=== PATIENT | male | born 1940 | race Caucasian/White ===

== ENCOUNTER 2017-03-19 21:29 | Inpatient (IN) | payer MEDICARE, OTHER ==
[2017-03-19 22:32] LABS: #Basophils 0.1 thou/uL (0.0-0.2); #Eosinphils 0.1 thou/uL (0.0-0.7); #Lymphocytes 1.2 thou/uL (1.20-3.40); #Monocytes 0.4 thou/uL (0.11-0.59); #Neutrophils 7.2 thou/uL (1.40-6.50); %Basophils 0.9 % (0.0-1.0); %Eosinophils 0.6 % (0.0-10.0); %Lymphocytes 13.7 % (21.0-51.0); %Monocytes 4.6 % (0.0-10.0); %Neutrophils 80.2 % (42.0-75.0); Hemoglobin 13.3 g/dL (14.0-18.0); Mean Corpuscular HGB CONC 32.4 g/dL (32.0-36.0); Mean Corpuscular Hemoglobin 32.4 pg (27.0-31.0); Mean Corpuscular Volume 99.8 fl (80.0-94.0); Mean Platelet Volume 6.8 fL (7.4-10.4); Platelet Count 251 thou/uL (130-400); RBC Distribution Width 17.1 % (11.5-14.5); Red Blood Cell (RBC) Count 4.12 mill/uL (4.70-6.10)
[2017-03-19] MEDS ORDERED: Propofol 1,000 MG/100 ML VIAL IV ONE (22:34)
[2017-03-19] MEDS ORDERED: Fentanyl 100 MCG/2 ML VIAL ONE (22:34)
[2017-03-19 22:39] LABS: INR-International Normal Ratio 1.2; PTT 36.6 SEC (22.9-36.1); Prothrombin Time 15.5 SEC (12.0-14.7)
[2017-03-19 22:40] LABS: D-Dimer Test 3.07 *mcg/mL (0.27-0.43)
[2017-03-19 22:54] LABS: ALT (SGPT) Less than 7 U/L (8-55); AST (SGOT) 15 U/L (5-34); Albumin 3.7 g/dL (3.4-4.8); Alkaline Phosphatase 56 U/L (40-150); Anion Gap 16 mmol/L (10-20); BUN (Urea Nitrogen) 38 mg/dL (8.4-25.7); Bilirubin, Total 0.7 mg/dL (0.2-1.2); CK (CPK) 19 U/L (30-200); Calc. Creatinine Clearance 0 mL/min (70-130); Calcium 10.5 mg/dL (7.8-10.44); Carbon Dioxide 24 mmol/L (23-31); Chloride 102 mmol/L (98-107); Estimated GFR-MDRD 39; Globulin 3.9 g/dL (2.4-3.5); Glucose 213 mg/dL (83-110); Lipase 42 U/L (8-78); Magnesium 2.1 mg/dL (1.6-2.6); Potassium 5.5 mmol/L (3.5-5.1); Protein, Total 7.6 g/dL (5.8-8.1); Sodium 136 mmol/L (136-145)
[2017-03-19 22:57] LABS: CKMB 0.5 ng/mL (0-6.6); Troponin I 0.036 ng/mL (< 0.028)
--- NOTE | 2017-03-19 23:01 | RAD ---
PORTABLE SUPINE CHEST ONE VIEW: 03/19/17 HISTORY: 76-year-old male with shortness of breath. COMPARISON: 03/31/16. NG tube and endotracheal tubes have been placed and are in satisfactory location. Atherosclerotic peña nges of the aorta. There is rotation to the left. No confluent pneumonia or overt edema or pleural ef fusion. IMPRESSION: NG tube and endotracheal tubes placed in satisfactory location. No evidence of pneumonia or other sig nificant acute intrathoracic disease. POS: [facility]
[2017-03-19] MEDS ORDERED: metroNIDAZOLE 500 MG in Premix Bag 1 BAG IVPB SCH (23:15)
[2017-03-19] MEDS ORDERED: Oseltamivir 75 MG CAP PER TUBE SCH (23:15)
[2017-03-19] MEDS ORDERED: CEFAZOLIN/Water 2 GM/20 ML SYRINGE ONE (23:24)
[2017-03-19 23:27] LABS: Actual Bicarbonate (HCO3a) 18.6 mEq/L (22-26); Base Excess (BEa) -5.4 mEq/L (0 (+/-) 2.5); CO2 Tension 30.8 mmHg (35.0-45.0); Hematocrit-ABG 33.2 % (42.0-52.0); Hemoglobin (Hb) 10.1 g/dL (14.0-18.0); O2 Tension (PaO2) 154.1 mmHg (80.0-100.0)
[2017-03-19 23:28] LABS: Analyzer IN Cardio ER; Calcium, Ionized 1.2 mmol/L (1.12-1.30); Puncture Site RRA
[2017-03-19] MEDS ORDERED: Cefepime 2 GM, Syringe 2.5 ML in Sterile Water 10 ML SLOW IVP SCH (23:45)
[2017-03-20] MEDS ORDERED: Ondansetron HCl/PF 4 MG/2 ML Vial ONE (01:14)
[2017-03-20 01:31] LABS: Troponin I 0.042 ng/mL (< 0.028)
[2017-03-20] MEDS ORDERED: Dextrose 50% Abboject 50 ML SYRINGE SLOW IVP PRN (02:10)
[2017-03-20] MEDS ORDERED: Dextrose 5% in Water 1,000 ML IV PRN (02:10)
[2017-03-20] MEDS ORDERED: Ventilator Sedation Protocol 1 EACH FS SCH (02:10)
[2017-03-20] MEDS ORDERED: CCU Electrolyte Replacement 1 EACH FS SCH (02:10)
[2017-03-20] MEDS ORDERED: Ondansetron HCl/PF 4 MG/2 ML Vial IVP PRN (02:10)
[2017-03-20] MEDS ORDERED: Enoxaparin Sodium 40 MG/0.4 ML SYRINGE SC SCH (02:15)
[2017-03-20] MEDS ORDERED: Sodium Chloride 0.45% 1,000 ML IV SCH (02:15)
[2017-03-20] MEDS ORDERED: DISCONTINUE PREVIOUS NARCOTIC PAIN MEDICATIONS AND BENZODIAZEPINES FS SCH (02:17)
[2017-03-20] MEDS ORDERED: Lorazepam 2 MG/ML VIAL SLOW IVP PRN (02:17)
[2017-03-20] MEDS ORDERED: Fentanyl CADD 250 ML IVPB SCH (02:17)
[2017-03-20] MEDS ORDERED: Propofol 1,000 MG/100 ML VIAL IV PRN (02:17)
[2017-03-20] MEDS ORDERED: Fentanyl BOLUS 250 ML IVPB PRN (02:17)
[2017-03-20] MEDS ORDERED: Magnesium 2 GM/NS 0.9% 100 ML 2 GM in Premix Bag 1 BAG IVPB PRN (02:20)
[2017-03-20] MEDS ORDERED: Potassium Chloride 40 MEQ in Premix Bag 1 BAG IVPB PRN (02:20)
[2017-03-20] MEDS ORDERED: Potassium Phosphate 15 MMOL in Sodium Chloride 0.9% 250 ML 250 ML IV PRN (02:20)
[2017-03-20] MEDS ORDERED: CCU ELECTROLYTE REPLACEMENT PROTOCOL FS PRN (02:20)
[2017-03-20] MEDS ORDERED: Potassium Chloride 40 MEQ in Sodium Chloride 0.9% 250 ML 250 ML IVPB PRN (02:20)
[2017-03-20] MEDS ORDERED: Potassium Phosphate 12 MMOL in Sodium Chloride 0.9% 250 ML 250 ML IV PRN (02:20)
[2017-03-20] MEDS ORDERED: Potassium Chloride 20 MEQ TAB PO PRN (02:20)
[2017-03-20] MEDS ORDERED: Potassium Phosphate 9 MMOL in Sodium Chloride 0.9% 100 ML IVPB PRN (02:20)
[2017-03-20] MEDS ORDERED: Magnesium Oxide 400 MG TAB PO PRN ×2 (02:20)
[2017-03-20 02:43] LABS: Lactic Acid 1.7 mmol/L (0.5-2.2)
[2017-03-20] MEDS ORDERED: HumaLOG 300 UNITS/3 ML VIAL SC PRN (02:49)
[2017-03-20 02:52] LABS: Actual Bicarbonate (HCO3a) 21.1 mEq/L (22-26); Base Excess (BEa) -3.5 mEq/L (0 (+/-) 2.5); CO2 Tension 36.4 mmHg (35.0-45.0); Calcium, Ionized 1.3 mmol/L (1.12-1.30); Hematocrit-ABG 34.7 % (42.0-52.0); Hemoglobin (Hb) 10.2 g/dL (14.0-18.0); O2 Tension (PaO2) 72.9 mmHg (80.0-100.0); pH, Arterial 7.38 (7.35-7.45)
[2017-03-20 02:54] LABS: Puncture Site RBRACH
[2017-03-20] MEDS: Sodium Chloride 0.9% 1,000 ML IV SCH ×3 (03:18→14:07)
[2017-03-20 05:18] LABS: #Lymphocytes 0.9 thou/uL (1.20-3.40); #Monocytes 0.5 thou/uL (0.11-0.59); #Neutrophils 5.6 thou/uL (1.40-6.50); %Basophils 0.2 % (0.0-1.0); %Eosinophils 0.5 % (0.0-10.0); %Lymphocytes 12.8 % (21.0-51.0); %Neutrophils 79.5 % (42.0-75.0); Hemoglobin 11.3 g/dL (14.0-18.0); Mean Corpuscular HGB CONC 32.6 g/dL (32.0-36.0); Mean Corpuscular Hemoglobin 32.4 pg (27.0-31.0); Mean Corpuscular Volume 99.4 fl (80.0-94.0); Mean Platelet Volume 7.3 fL (7.4-10.4); Platelet Count 161 thou/uL (130-400)
[2017-03-20 05:51] LABS: ALT (SGPT) 7 U/L (8-55); AST (SGOT) 18 U/L (5-34); Albumin 2.8 g/dL (3.4-4.8); Alkaline Phosphatase 41 U/L (40-150); Anion Gap 11 mmol/L (10-20); BUN (Urea Nitrogen) 34 mg/dL (8.4-25.7); Bilirubin, Total 0.4 mg/dL (0.2-1.2); Calc. Creatinine Clearance 44 mL/min (70-130); Calcium 8.9 mg/dL (7.8-10.44); Carbon Dioxide 20 mmol/L (23-31); Chloride 107 mmol/L (98-107); Estimated GFR-MDRD 50; Globulin 2.9 g/dL (2.4-3.5); Glucose 157 mg/dL (83-110); Potassium 4.2 mmol/L (3.5-5.1); Protein, Total 5.7 g/dL (5.8-8.1); Sodium 134 mmol/L (136-145)
[2017-03-20] MEDS: Clindamycin/D5W 900 MG in Premix Bag 1 BAG IVPB SCH ×3 (05:58→21:09)
--- NOTE | 2017-03-20 07:26 | HP ---
DATE OF ADMISSION: 03/20/2017 TIME OF SERVICE: 00:10 CHIEF COMPLAINT: Shortness of breath. HISTORY OF PRESENT ILLNESS: Disclaimer: Entire history is taken from the chart and from the ER doctor as the patient is currently sedated, intubated, and has no family with him. Mr. Montelongo is a 76-year-old gentleman from [facility]. He was acting more confused than his normal self today and subsequently EMS was called to see him as he was complaining of shortness of breath. On EMS arrival, was saturating 89-90% on room air, was placed on oxygen and the sats came up to 96%. Again, he was confused from his baseline and has been treated for recent UTI with Macrobid and the patient was brought to the emergency department for evaluation. Allegedly temperature there in the skilled nursing was 100.0 with respiratory rate of 24 on transport. In the ER, they were in the process of placing an IV, the patient was short of breath and vomited and aspirated. He was subsequently urgently intubated for respiratory airway protection. He is now paralyzed, sedated and intubated. We were asked to admit the patient. Further workup did reveal normal white count, influenza A positive, creatinine just above baseline of 1.69, temperature was 101.1, pulse 103, lactic acid was 5.6. PAST MEDICAL HISTORY: 1. Anemia: Patient apparently told him that his bone marrow does not make enough cells. 2. Hypertension. 3. Hypothyroidism. 4. Ankylosing spondylitis. 5. Acute kidney injury. 6. Uropathy. 7. Diabetes mellitus, non-insulin dependent. 8. Gastroesophageal reflux disease. 9. Osteoarthritis. 10. Chronic dysphagia. PAST SURGICAL HISTORY: Include, 1. Bilateral hip x2. 2. Right knee surgery. 3. Shoulder surgery. HOME MEDICATIONS: 1. Levothyroxine 88 mcg daily. 2. Coreg 25 mg p.o. b.i.d. 3. Gabapentin 600 mg p.o. at bedtime. 4. Sulfasalazine 1 gram b.i.d. 5. Docusate 100 mg daily. 6. Iron sulfate 325 mg daily. 7. Aspirin 81 mg daily. 8. Finasteride 5 mg daily. 9. Januvia 50 mg daily. 10. Melatonin 3 mg p.o. at bedtime. 11. Amlodipine 10 mg daily. 12. Prilosec 20 mg daily. ALLERGIES: To AMOXICILLIN and CODEINE, reactions unknown. FAMILY HISTORY: Unknown. SOCIAL HISTORY: Reportedly negative x3. He is a resident of [place]. His lives here locally. I do not have a phone number. REVIEW OF SYSTEMS: Not obtainable due to the patient's depressed mental status. PHYSICAL EXAMINATION: VITAL SIGNS: Temperature here on arrival at 21:50 was 101.1 with a pulse of 103 , blood pressure 158/77, respiratory rate 20, satting 99% on 2 liters. At 23:18 , just prior to me seeing him, pulse is 101, blood pressure 117/63, respiratory rate 12, satting 99% on the ventilator. GENERAL: He is sedated, intubated. He is paralyzed. He is on the ventilator in no apparent distress. HEENT: Normocephalic and atraumatic. Pupils are 2-3 mm and minimally reactive. Mucous membranes are moist. NECK: Stiff. Ankylosing spondylitis does affect his neck severely. He has very limited motion chronically. CHEST: Clear anteriorly. I hear some faint crackles present in the bilateral bases. He has good air movement. There are no wheezes. CARDIOVASCULAR: He is tachycardic but regular. He has a 2/6 systolic ejection murmur best heard over the right upper sternal border. He has a faint diastolic holosystolic murmur best heard at the apex. ABDOMEN: Soft with good bowel sounds. There is no rigidity. EXTREMITIES: Showed trace pedal edema. SKIN: Warm, moist, and well perfused. There are no rashes or lesions seen. MUSCULOSKELETAL: Normal to inspection. Large joints appear normal. There is no inflammation and no palpable effusion. Cervical spine is extremely stiff and almost fixed. NEUROLOGIC: Not testable due to a paralyzed and intubated status. LABORATORY DATA: CMP showed sodium of 136, potassium 5.5, chloride 102, bicarb 24, BUN 38. Creatinine 1.69, normal is somewhere around 1.3. Glucose of 213. Calcium was 10.5 and liver functions are normal. Albumin slightly low at 3.9. CBC showed a white count of 9.0, normal differential, hemoglobin 13.3, hematocrit of 41.1, platelets 281,000. CK was normal at 19, MB of 0.5, troponin I of 0.636. INR is 1.2 and lactic acid was 5.6. His ABG on the ventilator showed pH of 7.40 , pCO2 of 31, pO2 of 154, oxygen saturation 99% and a bicarbonate of 19. BNP was 548. Lipase normal at 42. Current vent settings, SIMV with a rate of 12, PEEP of 5, tidal volume of 500 and FiO2 of 40%. RADIOGRAPHIC STUDIES: Chest x-ray showed no acute cardiopulmonary changes. There is an NG tube and endotracheal tube in place. ASSESSMENT AND PLAN: 1. Influenza A. 2. Acute hypoxic respiratory failure after aspiration, currently requiring mechanical ventilation. 3. Aspiration event with gastric contents into the trachea, now intubated. 4. Severe sepsis. Increased creatinine, fever, tachycardia, and lactic acid of 5.6. The patient was placed in the critical care unit. We will ask for a Pulmonary or Critical Care consult. We will give him IV fluids at 150 an hour for now, we will cover him broadly with antibiotics with cefepime, levofloxacin , and clindamycin. Clindamycin is to cover his aspiration and the cefepime and Levaquin for respiratory infection in a long-term care unit. The patient will be placed on oseltamivir 75 mg p.o. b.i.d. 5. Hypertension. Home medicines to be started once his OG tube is in place. We will have p.r.n. hydralazine as needed for elevated blood pressure. 6. Hypothyroidism, on levothyroxine. We will hold right now. 7. Ankylosing spondylitis. 8. History of diabetes mellitus type 2, sliding scale insulin will be ordered per ICU protocol. 9. Dysphasia. The patient will need a speech therapy evaluation once he gets off the ventilator. MTDD
[2017-03-20 08:07] LABS: Base Excess (BEa) -2.7 mEq/L (0 (+/-) 2.5); CO2 Tension 32.2 mmHg (35.0-45.0); Calcium, Ionized 1.2 mmol/L (1.12-1.30); Hematocrit-ABG 32.1 % (42.0-52.0); Hemoglobin (Hb) 9.7 g/dL (14.0-18.0); O2 Tension (PaO2) 113.7 mmHg (80.0-100.0); Puncture Site RRA; pH, Arterial 7.43 (7.35-7.45)
[2017-03-20] MEDS ORDERED: Cefepime 2 GM VIAL IVPB SCH (09:00)
[2017-03-20] MEDS: methylPREDNISolone Sod Succ/PF 125 MG/2 ML VIAL IVP SCH (09:34)
[2017-03-20] MEDS: Famotidine/PF 20 mg/2ml Vial SLOW IVP SCH (09:36)
--- NOTE | 2017-03-20 09:52 | RAD ---
AP VIEW CHEST: Date: 03/20/17 HISTORY: Intubation, aspiration, influenza. FINDINGS: Comparison made to previous exam from 03/19/17. AP view of chest demonstrates nasogastric tube in place. Endotracheal tube is in good position. Pulmo nary vascular congestion is seen. No evidence of effusions, pneumonia, or pneumothorax seen. IMPRESSION: Endotracheal and nasogastric tubes in good position. No evidence of acute intrathoracic abnormality s een. POS: [facility]
--- NOTE | 2017-03-20 11:34 | PDOC.PN ---
- Subjective Encounter Start Date: 03/20/17 Encounter Start Time: 11:00 Subjective: on vent, sedated -: tries to wake up on tactile stimuli - Objective Resuscitation Status: Resuscitation Status FULL:Full Resuscitation MAR Reviewed: Yes Vital Signs & Weight: Vital Signs (12 hours) Temp Pulse Resp Pulse Ox 03/20/17 10:00 12 03/20/17 08:00 99.2 F 82 12 99 03/20/17 07:57 79 03/20/17 07:00 99.1 F 03/20/17 06:00 16 03/20/17 04:00 14 03/20/17 03:00 100.1 F H 87 14 100 03/20/17 02:10 90 Weight Admit Weight 156 lb 1.396 oz Weight 156 lb 1.396 oz Most Recent Monitor Data Heart Rate from ECG 84 NIBP 128/49 NIBP BP-Mean 90 Respiration from ECG 17 SpO2 100 I&O: 03/19/17 03/20/17 03/21/17 06:59 06:59 06:59 Intake Total 476 Output Total 1145 415 Balance -669 -415 Result Diagrams: 03/20/17 04:22 03/20/17 04:22 Additional Labs: Accuchecks 03/20/17 03/20/17 10:07 02:29 POC Glucose 94 166 H Phys Exam - Physical Examination HEENT: PERRLA, moist MMs Neck: no JVD, supple Respiratory: no wheezing, no rales Cardiovascular: RRR, no significant murmur Gastrointestinal: soft, non-tender, positive bowel sounds Musculoskeletal: no edema, pulses present Neurological: non-focal, moves all 4 limbs Dx/Plan (1) Acute respiratory failure with hypoxia Code(s): J96.01 - ACUTE RESPIRATORY FAILURE WITH HYPOXIA Status: Acute (2) Aspiration pneumonitis Code(s): J69.0 - PNEUMONITIS DUE TO INHALATION OF FOOD AND VOMIT Status: Acute (3) Sepsis Code(s): A41.9 - SEPSIS, UNSPECIFIED ORGANISM Status: Acute Qualifiers: Sepsis type: sepsis due to unspecified organism Qualified Code(s): A41.9 - Sepsis, unspecified organism (4) Demand ischemia of myocardium Code(s): I24.8 - OTHER FORMS OF ACUTE ISCHEMIC HEART DISEASE Status: Acute (5) YOLETTE (acute kidney injury) Code(s): N17.9 - ACUTE KIDNEY FAILURE, UNSPECIFIED Status: Acute (6) Metabolic acidosis Code(s): E87.2 - ACIDOSIS Status: Acute (7) DM type 2 (diabetes mellitus, type 2) Status: Chronic Qualifiers: Diabetes mellitus complication status: with unspecified complications Diabetes mellitus usp insulin use: without usp use Qualified Code( s): E11.8 - Type 2 diabetes mellitus with unspecified complications (8) HTN (hypertension) Code(s): I10 - ESSENTIAL (PRIMARY) HYPERTENSION Status: Chronic Qualifiers: Hypertension type: essential hypertension Qualified Code(s): I10 - Essential (primary) hypertension (9) Hypothyroidism Code(s): E03.9 - HYPOTHYROIDISM, UNSPECIFIED Status: Chronic Qualifiers: Hypothyroidism type: unspecified Qualified Code(s): E03.9 - Hypothyroidism , unspecified (10) Chronic anemia Code(s): D64.9 - ANEMIA, UNSPECIFIED Status: Chronic - Plan weaning per pulm advice -: is on cefipime, levaq and clindamycin -: may dc tamiflu -: gentle iv hydration -: nebs, stress dose steroids, will f/u * . Review of Systems - Medications/Allergies Allergies/Adverse Reactions: Allergies Allergy/AdvReac Type Severity Reaction Status Date / Time amoxicillin Allergy per doctor Verified 03/20/17 03:40 history codeine AdvReac Intermediate Nausea Verified 03/20/17 03:40 Medications: Current Medications Albuterol/Ipratropium (Duoneb) 3 ml NEB [id number] CINDY Dextrose/Water (Dextrose 50%) 25 gm SLOW IVP PRN PRN PRN Reason: Hypoglycemia Enoxaparin Sodium (Lovenox) 40 mg SC 0900 [facility] Famotidine (Pepcid) 20 mg SLOW IVP Q24HR [facility] Last Admin: 03/20/17 09:36 Dose: 20 mg Glucagon (Glucagon) 1 mg IM PRN PRN PRN Reason: Hypoglycemia Clindamycin Phosphate/Dextrose (900 mg/ Device) 50 mls @ 100 mls/hr IVPB 0600, 1400,2200 [facility] Last Admin: 03/20/17 05:58 Dose: 50 mls Dextrose/Water (D5w) 1,000 mls @ 0 mls/hr IV .Q0M PRN; As Directed PRN Reason: Hypoglycemia Sodium Chloride (Normal Saline 0.9%) 1,000 mls @ 150 mls/hr IV .Q6H40M [facility] Last Admin: 03/20/17 09:47 Dose: Not Given Fentanyl (Fentanyl Cadd) 250 mls @ 0 mls/hr IVPB INF CINDY; Titrate PRN Reason: Protocol Stop: 04/19/17 02:17 Fentanyl Citrate (Fentanyl Bolus) 250 mls @ 0 mls/hr IVPB PRN PRN; As Directed PRN Reason: Breakthrough pain Stop: 04/19/17 02:17 Potassium Chloride 40 meq/ (Sodium Chloride) 270 mls @ 135 mls/hr IVPB ASDIR PRN PRN Reason: FOR SERUM K+ 2.5 - 3.5 Potassium Chloride 40 meq/ (Device) 100 mls @ 50 mls/hr IVPB ASDIR PRN PRN Reason: FOR SERUM K+ 2.5 - 3.5 Magnesium Sulfate 1 gm/ Sodium (Chloride) 102 mls @ 102 mls/hr IV PRN PRN PRN Reason: MAG LEVEL 1.4 - 2.0 Magnesium Sulfate 2 gm/ Device 100 mls @ 100 mls/hr IVPB ASDIR PRN PRN Reason: MAGNESIUM < 1.4 Potassium Phosphate 9 mmol/ (Sodium Chloride) 103 mls @ 25.75 mls/hr IVPB ASDIR PRN PRN Reason: Phosphate 1.0-1.8 Potassium Phosphate 12 mmol/ (Sodium Chloride) 254 mls @ 63.5 mls/hr IV ASDIR PRN PRN Reason: Serum phosphate 0.5-0.9 Potassium Phosphate 15 mmol/ (Sodium Chloride) 255 mls @ 63.75 mls/hr IV ASDIR PRN PRN Reason: Serum Phos < 0.5 Levofloxacin 750 mg/ Device 150 mls @ 100 mls/hr IVPB 0300 [facility] Last Admin: 03/20/17 03:18 Dose: 150 mls Cefepime HCl 2 gm/ Syringe 2.5 (ml/ Sterile Water) 12.5 mls @ 150 mls/hr SLOW IVP 0100,1300 C[facility] Insulin Human Lispro (Humalog) 0 units SC .MILD SLIDING SCALE PRN; Protocol PRN Reason: MILD SLIDING SCALE Lorazepam (Ativan) 2 mg SLOW IVP Q2H PRN PRN Reason: Anxiety to achieve Bianchi 2-3 Stop: 04/19/17 02:17 Magnesium Oxide (Magnesium Oxide) 400 mg PO BIDPRN PRN PRN Reason: FOR SERUM MAG 1.4 - 2.0 Magnesium Oxide (Magnesium Oxide) 800 mg PO PRN PRN PRN Reason: FOR SERUM MAG < 1.4 Methylprednisolone Sodium Succinate (Solu-Medrol) 80 mg IVP DAILY CINDY Last Admin: 03/20/17 09:34 Dose: 80 mg Miscellaneous Medication (Phos-Nak) 1 pkt PO TIDPRN PRN PRN Reason: FOR PHOS LEVEL 1.0 - 1.8 Miscellaneous Medication (Phos-Nak) 2 pkt PO TIDPRN PRN PRN Reason: FOR PHOS LEVEL 0.5 - 1.0 Morphine Sulfate (Morphine) 2 mg IVP Q2H PRN PRN Reason: Breakthrough pain Stop: 04/19/17 02:17 Discontinue Previous Narcotic Pain Medications And Benzodiazepines 1 each FS .ONE CINDY Stop: 04/19/17 02:17 Ccu Electrolyte (Replacement Protocol) 0 each FS PRN PRN PRN Reason: FOR ELECTROLYTE REPLACEMENT Ondansetron HCl (Zofran) 4 mg IVP Q6H PRN PRN Reason: Nausea/Vomiting Potassium Chloride (K-Dur) 40 meq PO ASDIR PRN PRN Reason: FOR SERUM K+ 2.5 - 3.5 Potassium Chloride (Klor-Con) 40 meq PER TUBE ASDIR PRN PRN Reason: FOR SERUM K+ 2.5-3.5 Propofol (Diprivan) 1,000 mg IV INF PRN; Protocol PRN Reason: TO ACHIEVE BIANCHI SCORE 2-3 Stop: 04/19/17 02:17 Sodium Chloride (Flush - Normal Saline) 10 ml IVF PRN PRN PRN Reason: Saline Flush Last Admin: 03/20/17 09:34 Dose: 10 ml
[2017-03-20] MEDS: Cefepime 2 GM, Syringe 2.5 ML in Sterile Water 10 ML SLOW IVP SCH (14:15)
--- NOTE | 2017-03-20 23:34 | CON ---
DATE OF SERVICE: 03/20/2017 SUBJECTIVE: Mr. Montelongo is a 76-year-old male who is intubated in the Critical Care Unit. History is o btained from old records review and from the admitting documents. Apparently, he lives in [facility]. He was confused, therefore EMS was called, and he was giordano sferred here. He was hypoxic on arrival. He was tachypneic. Apparently vomited and aspirated, and required emergent intubation. He subsequently has been transferred and admitted to the Critical Care Unit. PAST MEDICAL HISTORY: Remarkable for, 1. Anemia? myelodysplasia. 2. History of hypertension. 3 History of ankylosing spondylitis. 4. History of diabetes. 5. History of reflux disease. 6. Degenerative arthritis. 7. History of Crohn's disease. 8. History of cardiomyopathy. 9. 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 10. History of a lupus anticoagulant. 11. History of hematuria in the past. 12. History of a normocytic normochromic anemia, according to a 2011 note. 13. History of gout. 14. History of shingles. 15. History of osteoporosis. 16. Hypothyroidism. 17. History of multiple hip replacements and revisions, 2 hips and 2 revisions. 18. History metatarsal heads of both feet. 19. History of bone spur removal, right shoulder. 20. History of endoscopy done by Dr. Resendez in 2007. 21. History of herniorrhaphy. 22. History of removal of skin cancer in 2007. 23. History of total knee replacement in 2008. 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 He smoked until 1970, but only [id number] equivalent. He does not drink now. He rarely drank before when he was living in the [place] according to old records. FAMILY HISTORY: Positive for father at 88 of obstructive lung disease. Mother at 65 with complications of rheumatoid arthritis and depression. He had two brothers, one had a myocardial infa rction at 68. It is unclear to me whether the elder brother is alive. He has two children, nghia g to old records. REVIEW OF SYSTEMS: Not obtainable because he is intubated. PHYSICAL EXAMINATION: VITAL SIGNS: Blood pressure 160/66, heart rate 72, respiratory rate per mechanical ventilation. He is afebrile. Intake and output is negative 669, coming in today. HEENT: Pupils react. Sclerae is anicteric. NECK: Supple. He is kyphotic. LUNGS: Remarkable for coarse equal breath sounds. HEART: Regular rhythm. S1 and S2 are normal. Grade 2/6 systolic murmur. ABDOMEN: Soft and nontender. EXTREMITIES: Without asymmetry. LABORATORY DATA: White count 7, hemoglobin 11.3, platelets 161,000. MCV is 99, pH 7.43, CO2 of 32, PO2 of 113. Ventilator Settings: Currently IMV of 12, FiO2 of 40, tidal volume of 500, PEEP of 5, pressure suppo rt of 10. Electrolytes: Sodium 134, potassium 4.2, chloride 107, bicarbonate 20, BUN 34, creatinine 1.38, gluc ose 157. IMPRESSION: Respiratory failure after an aspiration event. PLAN: Hopefully with antibiotics, nebulizer treatments and a few days of ventilation, he will clear up enough where he can be weaned. Chest radiograph reviewed by me shows no clearcut alveolar infiltrates. I will repeat radiograph on him. Continue with cefepime as ordered. Cleocin is also ordered. I feel he needs MRSA coverage. I actually it is arguable that he may not need any antimicrobial cove rage, but given his frail state, I think this is reasonable at least initially. I will consider placido ng down antibiotics, Levaquin in my opinion can be discontinued in the morning. His microbiology rem ains negative. He is growing gram negative porsche from his urine. I guess we should wait for sensitivi ties of this, although this has nothing to do with his presenting illness unless his UTI was leading to some encephalopathy. Critical care time 40 minutes.
[2017-03-21] MEDS: Cefepime 2 GM, Syringe 2.5 ML in Sterile Water 10 ML SLOW IVP SCH (00:20)
[2017-03-21] MEDS: Sodium Chloride 0.9% 1,000 ML IV SCH ×3 (03:08→20:30)
[2017-03-21] MEDS: Clindamycin/D5W 900 MG in Premix Bag 1 BAG IVPB SCH ×3 (05:14→21:05)
[2017-03-21 05:27] LABS: Troponin I 0.035 ng/mL (< 0.028)
[2017-03-21 06:44] LABS: Actual Bicarbonate (HCO3a) 18.1 mEq/L (22-26); CO2 Tension 34.8 mmHg (35.0-45.0); Calcium, Ionized 1.3 mmol/L (1.12-1.30); Hematocrit-ABG 32.3 % (42.0-52.0); O2 Tension (PaO2) 119.1 mmHg (80.0-100.0); pH, Arterial 7.33 (7.35-7.45)
[2017-03-21 06:45] LABS: Puncture Site RRA
[2017-03-21 08:10] LABS: #Lymphocytes 0.7 thou/uL (1.20-3.40); #Monocytes 0.3 thou/uL (0.11-0.59); #Neutrophils 3.8 thou/uL (1.40-6.50); %Basophils 0.3 % (0.0-1.0); %Eosinophils 0.1 % (0.0-10.0); %Lymphocytes 14.3 % (21.0-51.0); %Monocytes 6.1 % (0.0-10.0); %Neutrophils 79.1 % (42.0-75.0); Hemoglobin 10.4 g/dL (14.0-18.0); Mean Corpuscular HGB CONC 30.9 g/dL (32.0-36.0); Mean Platelet Volume 7.4 fL (7.4-10.4); Platelet Count 153 thou/uL (130-400); RBC Distribution Width 16.9 % (11.5-14.5); Red Blood Cell (RBC) Count 3.35 mill/uL (4.70-6.10); White Blood Cell (WBC) Count 4.8 thou/uL (4.8-10.8)
[2017-03-21 09:16] LABS: Anion Gap 14 mmol/L (10-20); BUN (Urea Nitrogen) 41 mg/dL (8.4-25.7); Calc. Creatinine Clearance 38 mL/min (70-130); Calcium 8.8 mg/dL (7.8-10.44); Carbon Dioxide 19 mmol/L (23-31); Chloride 109 mmol/L (98-107); Estimated GFR-MDRD 43; Glucose 130 mg/dL (83-110); Potassium 3.9 mmol/L (3.5-5.1); Sodium 138 mmol/L (136-145)
[2017-03-21] MEDS: Enoxaparin Sodium 40 MG/0.4 ML SYRINGE SC SCH (09:42)
[2017-03-21] MEDS: Famotidine/PF 20 mg/2ml Vial SLOW IVP SCH (09:42)
[2017-03-21] MEDS: methylPREDNISolone Sod Succ/PF 125 MG/2 ML VIAL IVP SCH (09:42)
--- NOTE | 2017-03-21 10:46 | PDOC.PN ---
- Subjective Encounter Start Date: 03/21/17 Encounter Start Time: 10:20 Subjective: awakens to touch, on vent -: not in distress - Objective Resuscitation Status: Resuscitation Status FULL:Full Resuscitation MAR Reviewed: Yes Vital Signs & Weight: Vital Signs (12 hours) Temp Pulse Resp BP Pulse Ox 03/21/17 10:00 12 03/21/17 08:00 96.2 F L 63 12 100 03/21/17 07:00 96.2 F L 03/21/17 06:17 76 153/61 H 03/21/17 06:00 12 03/21/17 04:00 98.6 F 15 03/21/17 02:54 61 12 100 03/21/17 02:00 12 03/21/17 00:00 97.7 F 12 Weight Admit Weight 156 lb 1.396 oz Weight 153 lb 3.54 oz Most Recent Monitor Data Heart Rate from ECG 64 NIBP 158/61 NIBP BP-Mean 77 Respiration from ECG 17 SpO2 100 I&O: 03/20/17 03/21/17 03/22/17 06:59 06:59 06:59 Intake Total 476 2389 Output Total 1145 1735 140 Balance -669 654 -140 Result Diagrams: 03/21/17 04:10 03/21/17 04:10 Additional Labs: Accuchecks 03/21/17 03/20/17 03/20/17 04:12 21:08 14:10 POC Glucose 127 H 169 H 126 H Phys Exam - Physical Examination HEENT: PERRLA, moist MMs Neck: no JVD, supple Respiratory: no wheezing, no rales Cardiovascular: RRR, no significant murmur Gastrointestinal: soft, non-tender, positive bowel sounds spc+ Musculoskeletal: no edema, pulses present Neurological: non-focal, moves all 4 limbs Dx/Plan (1) Acute respiratory failure with hypoxia Code(s): J96.01 - ACUTE RESPIRATORY FAILURE WITH HYPOXIA Status: Acute (2) Aspiration pneumonitis Code(s): J69.0 - PNEUMONITIS DUE TO INHALATION OF FOOD AND VOMIT Status: Acute (3) Sepsis Code(s): A41.9 - SEPSIS, UNSPECIFIED ORGANISM Status: Resolved Qualifiers: Sepsis type: sepsis due to unspecified organism Qualified Code(s): A41.9 - Sepsis, unspecified organism (4) Demand ischemia of myocardium Code(s): I24.8 - OTHER FORMS OF ACUTE ISCHEMIC HEART DISEASE Status: Acute (5) YOLETTE (acute kidney injury) Code(s): N17.9 - ACUTE KIDNEY FAILURE, UNSPECIFIED Status: Acute (6) Metabolic acidosis Code(s): E87.2 - ACIDOSIS Status: Acute (7) DM type 2 (diabetes mellitus, type 2) Status: Chronic Qualifiers: Diabetes mellitus complication status: with unspecified complications 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: without local intermodal truck driver use Qualified Code( s): E11.8 - Type 2 diabetes mellitus with unspecified complications (8) HTN (hypertension) Code(s): I10 - ESSENTIAL (PRIMARY) HYPERTENSION Status: Chronic Qualifiers: Hypertension type: essential hypertension Qualified Code(s): I10 - Essential (primary) hypertension (9) Hypothyroidism Code(s): E03.9 - HYPOTHYROIDISM, UNSPECIFIED Status: Chronic Qualifiers: Hypothyroidism type: unspecified Qualified Code(s): E03.9 - Hypothyroidism , unspecified (10) Chronic anemia Code(s): D64.9 - ANEMIA, UNSPECIFIED Status: Chronic - Plan suggest dc all antibiotics, continue steroids -: has been adjusting his antibiotics I believe -: weaning per pulm advice -: has spc and likely gram -ve rods are colonized/contaminated -: gentle iv hydration, renal function is stabilizing * . Review of Systems - Medications/Allergies Allergies/Adverse Reactions: Allergies Allergy/AdvReac Type Severity Reaction Status Date / Time amoxicillin Allergy per doctor Verified 03/20/17 03:40 history codeine AdvReac Intermediate Nausea Verified 03/20/17 03:40 Medications: Current Medications Albuterol/Ipratropium (Duoneb) 3 ml NEB [id number] [facility] Last Admin: 03/21/17 06:15 Dose: 3 ml Dextrose/Water (Dextrose 50%) 25 gm SLOW IVP PRN PRN PRN Reason: Hypoglycemia Enoxaparin Sodium (Lovenox) 40 mg SC 0900 [facility] Last Admin: 03/21/17 09:42 Dose: 40 mg Famotidine (Pepcid) 20 mg SLOW IVP Q24HR [facility] Last Admin: 03/21/17 09:42 Dose: 20 mg Glucagon (Glucagon) 1 mg IM PRN PRN PRN Reason: Hypoglycemia Clindamycin Phosphate/Dextrose (900 mg/ Device) 50 mls @ 100 mls/hr IVPB 0600, 1400,2200 [facility] Last Admin: 03/21/17 05:14 Dose: 50 mls Dextrose/Water (D5w) 1,000 mls @ 0 mls/hr IV .Q0M PRN; As Directed PRN Reason: Hypoglycemia Fentanyl (Fentanyl Cadd) 250 mls @ 0 mls/hr IVPB INF CINDY; Titrate PRN Reason: Protocol Stop: 04/19/17 02:17 Fentanyl Citrate (Fentanyl Bolus) 250 mls @ 0 mls/hr IVPB PRN PRN; As Directed PRN Reason: Breakthrough pain Stop: 04/19/17 02:17 Potassium Chloride 40 meq/ (Sodium Chloride) 270 mls @ 135 mls/hr IVPB ASDIR PRN PRN Reason: FOR SERUM K+ 2.5 - 3.5 Potassium Chloride 40 meq/ (Device) 100 mls @ 50 mls/hr IVPB ASDIR PRN PRN Reason: FOR SERUM K+ 2.5 - 3.5 Magnesium Sulfate 1 gm/ Sodium (Chloride) 102 mls @ 102 mls/hr IV PRN PRN PRN Reason: MAG LEVEL 1.4 - 2.0 Magnesium Sulfate 2 gm/ Device 100 mls @ 100 mls/hr IVPB ASDIR PRN PRN Reason: MAGNESIUM < 1.4 Potassium Phosphate 9 mmol/ (Sodium Chloride) 103 mls @ 25.75 mls/hr IVPB ASDIR PRN PRN Reason: Phosphate 1.0-1.8 Potassium Phosphate 12 mmol/ (Sodium Chloride) 254 mls @ 63.5 mls/hr IV ASDIR PRN PRN Reason: Serum phosphate 0.5-0.9 Potassium Phosphate 15 mmol/ (Sodium Chloride) 255 mls @ 63.75 mls/hr IV ASDIR PRN PRN Reason: Serum Phos < 0.5 Sodium Chloride (Normal Saline 0.9%) 1,000 mls @ 75 mls/hr IV .[id number] [facility] Last Admin: 03/21/17 03:08 Dose: 1,000 mls Levofloxacin 750 mg/ Device 150 mls @ 100 mls/hr IVPB Q2D@0300 [facility] Cefepime HCl 2 gm/ Syringe 2.5 (ml/ Sterile Water) 12.5 mls @ 150 mls/hr SLOW IVP 0100 [facility] Insulin Human Lispro (Humalog) 0 units SC .MILD SLIDING SCALE PRN; Protocol PRN Reason: MILD SLIDING SCALE Lorazepam (Ativan) 2 mg SLOW IVP Q2H PRN PRN Reason: Anxiety to achieve Bianchi 2-3 Stop: 04/19/17 02:17 Magnesium Oxide (Magnesium Oxide) 400 mg PO BIDPRN PRN PRN Reason: FOR SERUM MAG 1.4 - 2.0 Magnesium Oxide (Magnesium Oxide) 800 mg PO PRN PRN PRN Reason: FOR SERUM MAG < 1.4 Methylprednisolone Sodium Succinate (Solu-Medrol) 80 mg IVP DAILY [facility] Last Admin: 03/21/17 09:42 Dose: 80 mg Miscellaneous Medication (Phos-Nak) 1 pkt PO TIDPRN PRN PRN Reason: FOR PHOS LEVEL 1.0 - 1.8 Miscellaneous Medication (Phos-Nak) 2 pkt PO TIDPRN PRN PRN Reason: FOR PHOS LEVEL 0.5 - 1.0 Morphine Sulfate (Morphine) 2 mg IVP Q2H PRN PRN Reason: Breakthrough pain Stop: 04/19/17 02:17 Discontinue Previous Narcotic Pain Medications And Benzodiazepines 1 each FS .ONE [facility] Stop: 04/19/17 02:17 Ccu Electrolyte (Replacement Protocol) 0 each FS PRN PRN PRN Reason: FOR ELECTROLYTE REPLACEMENT Ondansetron HCl (Zofran) 4 mg IVP Q6H PRN PRN Reason: Nausea/Vomiting Potassium Chloride (K-Dur) 40 meq PO ASDIR PRN PRN Reason: FOR SERUM K+ 2.5 - 3.5 Potassium Chloride (Klor-Con) 40 meq PER TUBE ASDIR PRN PRN Reason: FOR SERUM K+ 2.5-3.5 Propofol (Diprivan) 1,000 mg IV INF PRN; Protocol PRN Reason: TO ACHIEVE BIANCHI SCORE 2-3 Stop: 04/19/17 02:17 Last Admin: 03/21/17 09:49 Dose: 1,000 mg Sodium Chloride (Flush - Normal Saline) 10 ml IVF PRN PRN PRN Reason: Saline Flush Last Admin: 03/20/17 09:34 Dose: 10 ml
--- NOTE | 2017-03-21 10:49 | RAD ---
AP VIEW CHEST: Date: 03/21/17 HISTORY: Status post intubation, influenza. FINDINGS: Comparison made to previous exam from 03/20/17. AP view chest demonstrates nasogastric and endotracheal tubes to be in good position. The lungs are w ell aerated. No evidence of active intrathoracic disease is seen. No evidence of effusions, pneumonia , or pneumothorax seen. IMPRESSION: Unremarkable AP view chest. POS: [facility]
--- NOTE | 2017-03-21 10:56 | PDOC.PULCC ---
CCU Progress Note: Subj/Obj - Subjective Date: 03/21/17 Time: 10:55 Subjective: Intubated, but able to follow commands. Has done well overnight - ROS Review of Systems: congestion - Objective Allergies/Adverse Reactions: Allergies Allergy/AdvReac Type Severity Reaction Status Date / Time amoxicillin Allergy per doctor Verified 03/20/17 03:40 history codeine AdvReac Intermediate Nausea Verified 03/20/17 03:40 Medications: Current Medications Albuterol/Ipratropium (Duoneb) 3 ml NEB [id number] [facility] Last Admin: 03/21/17 06:15 Dose: 3 ml Dextrose/Water (Dextrose 50%) 25 gm SLOW IVP PRN PRN PRN Reason: Hypoglycemia Enoxaparin Sodium (Lovenox) 40 mg SC 0900 [facility] Last Admin: 03/21/17 09:42 Dose: 40 mg Famotidine (Pepcid) 20 mg SLOW IVP Q24HR [facility] Last Admin: 03/21/17 09:42 Dose: 20 mg Glucagon (Glucagon) 1 mg IM PRN PRN PRN Reason: Hypoglycemia Clindamycin Phosphate/Dextrose (900 mg/ Device) 50 mls @ 100 mls/hr IVPB 0600, 1400,2200 [facility] Last Admin: 03/21/17 05:14 Dose: 50 mls Dextrose/Water (D5w) 1,000 mls @ 0 mls/hr IV .Q0M PRN; As Directed PRN Reason: Hypoglycemia Fentanyl (Fentanyl Cadd) 250 mls @ 0 mls/hr IVPB INF [facility]INDY; Titrate PRN Reason: Protocol Stop: 04/19/17 02:17 Fentanyl Citrate (Fentanyl Bolus) 250 mls @ 0 mls/hr IVPB PRN PRN; As Directed PRN Reason: Breakthrough pain Stop: 04/19/17 02:17 Potassium Chloride 40 meq/ (Sodium Chloride) 270 mls @ 135 mls/hr IVPB ASDIR PRN PRN Reason: FOR SERUM K+ 2.5 - 3.5 Potassium Chloride 40 meq/ (Device) 100 mls @ 50 mls/hr IVPB ASDIR PRN PRN Reason: FOR SERUM K+ 2.5 - 3.5 Magnesium Sulfate 1 gm/ Sodium (Chloride) 102 mls @ 102 mls/hr IV PRN PRN PRN Reason: MAG LEVEL 1.4 - 2.0 Magnesium Sulfate 2 gm/ Device 100 mls @ 100 mls/hr IVPB ASDIR PRN PRN Reason: MAGNESIUM < 1.4 Potassium Phosphate 9 mmol/ (Sodium Chloride) 103 mls @ 25.75 mls/hr IVPB ASDIR PRN PRN Reason: Phosphate 1.0-1.8 Potassium Phosphate 12 mmol/ (Sodium Chloride) 254 mls @ 63.5 mls/hr IV ASDIR PRN PRN Reason: Serum phosphate 0.5-0.9 Potassium Phosphate 15 mmol/ (Sodium Chloride) 255 mls @ 63.75 mls/hr IV ASDIR PRN PRN Reason: Serum Phos < 0.5 Sodium Chloride (Normal Saline 0.9%) 1,000 mls @ 75 mls/hr IV .[id number] [facility] Last Admin: 03/21/17 03:08 Dose: 1,000 mls Levofloxacin 750 mg/ Device 150 mls @ 100 mls/hr IVPB Q2D@0300 [facility] Cefepime HCl 2 gm/ Syringe 2.5 (ml/ Sterile Water) 12.5 mls @ 150 mls/hr SLOW IVP 0100 [facility] Insulin Human Lispro (Humalog) 0 units SC .MILD SLIDING SCALE PRN; Protocol PRN Reason: MILD SLIDING SCALE Lorazepam (Ativan) 2 mg SLOW IVP Q2H PRN PRN Reason: Anxiety to achieve Bianchi 2-3 Stop: 04/19/17 02:17 Magnesium Oxide (Magnesium Oxide) 400 mg PO BIDPRN PRN PRN Reason: FOR SERUM MAG 1.4 - 2.0 Magnesium Oxide (Magnesium Oxide) 800 mg PO PRN PRN PRN Reason: FOR SERUM MAG < 1.4 Methylprednisolone Sodium Succinate (Solu-Medrol) 80 mg IVP DAILY [facility] Last Admin: 03/21/17 09:42 Dose: 80 mg Miscellaneous Medication (Phos-Nak) 1 pkt PO TIDPRN PRN PRN Reason: FOR PHOS LEVEL 1.0 - 1.8 Miscellaneous Medication (Phos-Nak) 2 pkt PO TIDPRN PRN PRN Reason: FOR PHOS LEVEL 0.5 - 1.0 Morphine Sulfate (Morphine) 2 mg IVP Q2H PRN PRN Reason: Breakthrough pain Stop: 04/19/17 02:17 Discontinue Previous Narcotic Pain Medications And Benzodiazepines 1 each FS .ONE [facility] Stop: 04/19/17 02:17 Ccu Electrolyte (Replacement Protocol) 0 each FS PRN PRN PRN Reason: FOR ELECTROLYTE REPLACEMENT Ondansetron HCl (Zofran) 4 mg IVP Q6H PRN PRN Reason: Nausea/Vomiting Potassium Chloride (K-Dur) 40 meq PO ASDIR PRN PRN Reason: FOR SERUM K+ 2.5 - 3.5 Potassium Chloride (Klor-Con) 40 meq PER TUBE ASDIR PRN PRN Reason: FOR SERUM K+ 2.5-3.5 Propofol (Diprivan) 1,000 mg IV INF PRN; Protocol PRN Reason: TO ACHIEVE BIANCHI SCORE 2-3 Stop: 04/19/17 02:17 Last Admin: 03/21/17 09:49 Dose: 1,000 mg Sodium Chloride (Flush - Normal Saline) 10 ml IVF PRN PRN PRN Reason: Saline Flush Last Admin: 03/20/17 09:34 Dose: 10 ml MAR Reviewed: Yes Vital Signs and I&O: Vital Signs Temp 96.2 F L 03/21/17 08:00 Pulse 63 03/21/17 08:00 Resp 12 03/21/17 10:00 BP 153/61 H 03/21/17 06:17 Pulse Ox 100 03/21/17 08:00 Intake & Output 03/20/17 03/21/17 03/21/17 18:59 06:59 18:59 Intake Total 1321 1068 Output Total 1015 720 140 Balance 306 348 -140 Weight 156 lb 1.396 oz 153 lb 3.54 oz Intake: Intake, IV Amount 1321 1068 Propofol 1000 mg (See 54 115 Protocol) IV INF PRN Rx#: [id number] Sodium Chloride 0.9% 1, 1267 000 ml @ 150 mls/hr IV . Q6H40M [facility] Rx#:[id number] Sodium Chloride 0.9% 1, 953 000 ml @ 75 mls/hr IV . [id number] [facility] Rx#:[id number] Output: Gastric Drainage 450 250 Output, Oshe[place] 565 470 140 Other: Voiding Method Indwelling Catheter Indwelling Catheter Indwelling Catheter Vent Setting: Vent Setting Vent - Assess Status Start: 03/20/17 02: 05 Freq: Q2HR Status: Active Protocol: Document 03/21/17 10:00 [facility] (Rec: 03/21/17 10:40 [facility] [id number]) Spontaneous Breathing Test: done CCU Progress Note: Exam - Physical Exam HEENT: PERRLA, moist MMs, sclera anicteric Neck: no nodes, no JVD Deviation from normal: diminished movement due to neck fusion Cardiovascular: RRR Respiratory: clear to auscultation anteriorly Gastrointestinal: soft, non-tender Deviation from normal: has a suprapubic catheter Musculoskeletal: no edema Deviation from normal: 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 Deviation from normal: moves upper extremities Skin: no rash - Labs Result Diagrams: 03/21/17 04:10 03/21/17 04:10 Lab results: Laboratory Results - last 24 hr 03/20/17 03/20/17 03/21/17 14:10 21:08 04:10 WBC RBC Hgb Hct MCV MCH MCHC RDW Plt Count MPV Neutrophils % Lymphocytes % Monocytes % Eosinophils % Basophils % Neutrophils # Lymphocytes # Monocytes # Eosinophils # Basophils # Specimen Type Puncture Site Bicarbonate Actual ABG pH ABG pCO2 ABG pO2 ABG O2 Sat Calc/Sandee ABG O2 Content ABG Base Excess ABG Hematocrit ABG Hemoglobin ABG Oxyhemoglobin ABG Carboxyhemoglobin ABG Methemoglobin ABG Deoxyhemoglobin Nicholas Test A-a O2 Gradient Ionized Calcium Mode of Support Mechanical Rate Inspired O2 Tidal Volume Pressure Support PEEP or CPAP Sodium Potassium Chloride Carbon Dioxide Anion Gap BUN Creatinine Estimated GFR (MDRD) Glucose POC Glucose 126 H 169 H Calcium Troponin I 0.035 H 03/21/17 03/21/17 03/21/17 04:10 04:10 04:12 WBC 4.8 RBC 3.35 L Hgb 10.4 L Hct 33.7 L MCV 100.0 H MCH 31.0 MCHC 30.9 L RDW 16.9 H Plt Count 153 MPV 7.4 Neutrophils % 79.1 H Lymphocytes % 14.3 L Monocytes % 6.1 Eosinophils % 0.1 Basophils % 0.3 Neutrophils # 3.8 Lymphocytes # 0.7 L Monocytes # 0.3 Eosinophils # 0.0 Basophils # 0.0 Specimen Type Puncture Site Bicarbonate Actual ABG pH ABG pCO2 ABG pO2 ABG O2 Sat Calc/Sandee ABG O2 Content ABG Base Excess ABG Hematocrit ABG Hemoglobin ABG Oxyhemoglobin ABG Carboxyhemoglobin ABG Methemoglobin ABG Deoxyhemoglobin Nicholas Test A-a O2 Gradient Ionized Calcium Mode of Support Mechanical Rate Inspired O2 Tidal Volume Pressure Support PEEP or CPAP Sodium 138 Potassium 3.9 Chloride 109 H Carbon Dioxide 19 L Anion Gap 14 BUN 41 H Creatinine 1.58 H Estimated GFR (MDRD) 43 Glucose 130 H POC Glucose 127 H Calcium 8.8 Troponin I 03/21/17 06:23 WBC RBC Hgb Hct MCV MCH MCHC RDW Plt Count MPV Neutrophils % Lymphocytes % Monocytes % Eosinophils % Basophils % Neutrophils # Lymphocytes # Monocytes # Eosinophils # Basophils # Specimen Type ARTERIAL Puncture Site RRA Bicarbonate Actual 18.1 L ABG pH 7.33 L ABG pCO2 34.8 L ABG pO2 119.1 H ABG O2 Sat Calc/Sandee 98.3 ABG O2 Content 13.8 L ABG Base Excess -7.0 L ABG Hematocrit 32.3 L ABG Hemoglobin 10.0 L ABG Oxyhemoglobin 96.8 ABG Carboxyhemoglobin 1.0 ABG Methemoglobin 0.5 ABG Deoxyhemoglobin 1.6 Nicholas Test POSITIVE A-a O2 Gradient 53.400 H Ionized Calcium 1.3 Mode of Support SIMV/PSV Mechanical Rate 12 Inspired O2 30 Tidal Volume 500 Pressure Support 10 PEEP or CPAP 5.0 Sodium 138 Potassium 3.7 Chloride 106 Carbon Dioxide Anion Gap BUN Creatinine Estimated GFR (MDRD) Glucose POC Glucose Calcium Troponin I CCU Progress Note: A/P - Problems (1) Acute respiratory failure with hypoxia Current Visit: Yes Status: Acute Code(s): J96.01 - ACUTE RESPIRATORY FAILURE WITH HYPOXIA (2) Aspiration pneumonitis Current Visit: Yes Status: Acute Code(s): J69.0 - PNEUMONITIS DUE TO INHALATION OF FOOD AND VOMIT - Time Spent with Patient Time: 3o min CC time - Plan Plan: SBT. If tolerates then consider extubation. Sedation is being held during SBT. Continue IV ABX Spoke with family at bedside
[2017-03-22] MEDS: Cefepime 2 GM, Syringe 2.5 ML in Sterile Water 10 ML SLOW IVP SCH (01:10)
[2017-03-22] MEDS ORDERED: VANCOMYCIN IVPB PRN (01:35)
[2017-03-22] MEDS: Vancomycin HCl 1 GM in Premix Bag 1 BAG IVPB SCH (02:23)
[2017-03-22 04:58] LABS: #Eosinphils 0.1 thou/uL (0.0-0.7); #Monocytes 0.4 thou/uL (0.11-0.59); #Neutrophils 3.9 thou/uL (1.40-6.50); %Basophils 0.4 % (0.0-1.0); %Lymphocytes 18.2 % (21.0-51.0); %Monocytes 8.3 % (0.0-10.0); %Neutrophils 72.1 % (42.0-75.0); Hemoglobin 9.3 g/dL (14.0-18.0); Mean Corpuscular HGB CONC 31.6 g/dL (32.0-36.0); Mean Corpuscular Hemoglobin 31.4 pg (27.0-31.0); Mean Corpuscular Volume 99.1 fl (80.0-94.0); Platelet Count 160 thou/uL (130-400); RBC Distribution Width 16.6 % (11.5-14.5); Red Blood Cell (RBC) Count 2.96 mill/uL (4.70-6.10); White Blood Cell (WBC) Count 5.3 thou/uL (4.8-10.8)
[2017-03-22] MEDS: Clindamycin/D5W 900 MG in Premix Bag 1 BAG IVPB SCH ×3 (05:03→22:20)
[2017-03-22 05:23] LABS: Anion Gap 10 mmol/L (10-20); BUN (Urea Nitrogen) 39 mg/dL (8.4-25.7); Calc. Creatinine Clearance 41 mL/min (70-130); Calcium 8.5 mg/dL (7.8-10.44); Carbon Dioxide 20 mmol/L (23-31); Chloride 112 mmol/L (98-107); Estimated GFR-MDRD 43; Glucose 103 mg/dL (83-110); Potassium 3.4 mmol/L (3.5-5.1); Sodium 139 mmol/L (136-145)
--- NOTE | 2017-03-22 08:17 | PDOC.PULCC ---
CCU Progress Note: Subj/Obj - Subjective Date: 03/22/17 Time: 08:15 Subjective: He was extubated yesterday. He c/o lack of sleep and noise in CCU. Otherwise doing well. - Objective Allergies/Adverse Reactions: Allergies Allergy/AdvReac Type Severity Reaction Status Date / Time amoxicillin Allergy per doctor Verified 03/20/17 03:40 history codeine AdvReac Intermediate Nausea Verified 03/20/17 03:40 Medications: Current Medications Albuterol/Ipratropium (Duoneb) 3 ml NEB [id number] [facility] Last Admin: 03/22/17 02:27 Dose: 3 ml Dextrose/Water (Dextrose 50%) 25 gm SLOW IVP PRN PRN PRN Reason: Hypoglycemia Enoxaparin Sodium (Lovenox) 40 mg SC 0900 [facility] Last Admin: 03/21/17 09:42 Dose: 40 mg Famotidine (Pepcid) 20 mg SLOW IVP Q24HR [facility] Last Admin: 03/21/17 09:42 Dose: 20 mg Glucagon (Glucagon) 1 mg IM PRN PRN PRN Reason: Hypoglycemia Clindamycin Phosphate/Dextrose (900 mg/ Device) 50 mls @ 100 mls/hr IVPB 0600, 1400,2200 [facility] Last Admin: 03/22/17 05:03 Dose: 50 mls Dextrose/Water (D5w) 1,000 mls @ 0 mls/hr IV .Q0M PRN; As Directed PRN Reason: Hypoglycemia Fentanyl (Fentanyl Cadd) 250 mls @ 0 mls/hr IVPB INF CINDY; Titrate PRN Reason: Protocol Stop: 04/19/17 02:17 Fentanyl Citrate (Fentanyl Bolus) 250 mls @ 0 mls/hr IVPB PRN PRN; As Directed PRN Reason: Breakthrough pain Stop: 04/19/17 02:17 Potassium Chloride 40 meq/ (Sodium Chloride) 270 mls @ 135 mls/hr IVPB ASDIR PRN PRN Reason: FOR SERUM K+ 2.5 - 3.5 Potassium Chloride 40 meq/ (Device) 100 mls @ 50 mls/hr IVPB ASDIR PRN PRN Reason: FOR SERUM K+ 2.5 - 3.5 Last Admin: 03/22/17 07:37 Dose: 100 mls Magnesium Sulfate 1 gm/ Sodium (Chloride) 102 mls @ 102 mls/hr IV PRN PRN PRN Reason: MAG LEVEL 1.4 - 2.0 Magnesium Sulfate 2 gm/ Device 100 mls @ 100 mls/hr IVPB ASDIR PRN PRN Reason: MAGNESIUM < 1.4 Potassium Phosphate 9 mmol/ (Sodium Chloride) 103 mls @ 25.75 mls/hr IVPB ASDIR PRN PRN Reason: Phosphate 1.0-1.8 Potassium Phosphate 12 mmol/ (Sodium Chloride) 254 mls @ 63.5 mls/hr IV ASDIR PRN PRN Reason: Serum phosphate 0.5-0.9 Potassium Phosphate 15 mmol/ (Sodium Chloride) 255 mls @ 63.75 mls/hr IV ASDIR PRN PRN Reason: Serum Phos < 0.5 Sodium Chloride (Normal Saline 0.9%) 1,000 mls @ 75 mls/hr IV .[id number] [facility] Last Admin: 03/21/17 20:30 Dose: 1,000 mls Levofloxacin 750 mg/ Device 150 mls @ 100 mls/hr IVPB Q2D@0300 [facility] Cefepime HCl 2 gm/ Syringe 2.5 (ml/ Sterile Water) 12.5 mls @ 150 mls/hr SLOW IVP 0100 [facility] Last Admin: 03/22/17 01:10 Dose: 12.5 mls Vancomycin HCl 1 gm/ Device 200 mls @ 200 mls/hr IVPB 0200 [facility] Last Admin: 03/22/17 02:23 Dose: 200 mls Insulin Human Lispro (Humalog) 0 units SC .MILD SLIDING SCALE PRN; Protocol PRN Reason: MILD SLIDING SCALE Lorazepam (Ativan) 2 mg SLOW IVP Q2H PRN PRN Reason: Anxiety to achieve Bianchi 2-3 Stop: 04/19/17 02:17 Last Admin: 03/21/17 21:06 Dose: 2 mg Magnesium Oxide (Magnesium Oxide) 400 mg PO BIDPRN PRN PRN Reason: FOR SERUM MAG 1.4 - 2.0 Magnesium Oxide (Magnesium Oxide) 800 mg PO PRN PRN PRN Reason: FOR SERUM MAG < 1.4 Methylprednisolone Sodium Succinate (Solu-Medrol) 80 mg IVP DAILY [facility] Last Admin: 03/21/17 09:42 Dose: 80 mg Miscellaneous Medication (Phos-Nak) 1 pkt PO TIDPRN PRN PRN Reason: FOR PHOS LEVEL 1.0 - 1.8 Miscellaneous Medication (Phos-Nak) 2 pkt PO TIDPRN PRN PRN Reason: FOR PHOS LEVEL 0.5 - 1.0 Miscellaneous Medication (Pharmacy To Dose) 1 each IVPB PRN PRN PRN Reason: PNEUMONITIS Morphine Sulfate (Morphine) 2 mg IVP Q2H PRN PRN Reason: Breakthrough pain Stop: 04/19/17 02:17 Discontinue Previous Narcotic Pain Medications And Benzodiazepines 1 each FS .ONE [facility] Stop: 04/19/17 02:17 Ccu Electrolyte (Replacement Protocol) 0 each FS PRN PRN PRN Reason: FOR ELECTROLYTE REPLACEMENT Ondansetron HCl (Zofran) 4 mg IVP Q6H PRN PRN Reason: Nausea/Vomiting Potassium Chloride (K-Dur) 40 meq PO ASDIR PRN PRN Reason: FOR SERUM K+ 2.5 - 3.5 Potassium Chloride (Klor-Con) 40 meq PER TUBE ASDIR PRN PRN Reason: FOR SERUM K+ 2.5-3.5 Propofol (Diprivan) 1,000 mg IV INF PRN; Protocol PRN Reason: TO ACHIEVE BIANCHI SCORE 2-3 Stop: 04/19/17 02:17 Last Admin: 03/21/17 09:49 Dose: 1,000 mg Sodium Chloride (Flush - Normal Saline) 10 ml IVF PRN PRN PRN Reason: Saline Flush Last Admin: 03/20/17 09:34 Dose: 10 ml MAR Reviewed: Yes Vital Signs and I&O: Vital Signs Temp 98.6 F 03/22/17 07:00 Pulse 80 03/22/17 02:27 Resp 18 03/22/17 02:27 BP 153/58 H 03/21/17 11:18 Pulse Ox 97 03/22/17 02:27 Intake & Output 03/21/17 03/22/17 03/22/17 18:59 06:59 18:59 Intake Total 1229 983 0 Output Total 660 905 40 Balance 569 78 -40 Weight 164 lb 10.965 oz Intake: Intake, IV Amount 909 983 Cefepime 2 gm Syringe 2.5 10 ml In Sterile Water 10 ml @ 150 mls/hr SLOW IVP 0100 [facility] Rx#:[id number] Clindamycin/D5W 900 mg In 100 Premix Bag 1 bag @ 100 mls/hr IVPB 0600,1400, 2200 [facility] Rx#:[id number] Sodium Chloride 0.9% 1, 909 673 000 ml @ 75 mls/hr IV . [id number] [facility] Rx#:[id number] Vancomycin HCl 1 gm In 200 Premix Bag 1 bag @ 200 mls/hr IVPB 0200 [facility] Rx#: [id number] Oral 320 0 Output: Output, [place] 660 905 40 Other: Voiding Method Indwelling Catheter Indwelling Catheter Vent Setting: extubated 03/21 CCU Progress Note: Exam - Physical Exam Constitutional: NAD HEENT: PERRLA, moist MMs, sclera anicteric Neck: no nodes, no JVD Cardiovascular: RRR, no significant murmur Respiratory: clear to auscultation bilaterally Gastrointestinal: soft, non-tender, no distention, positive bowel sounds Musculoskeletal: no edema Neurological: non-focal Deviation from normal: lower ext paralyzed Lymphatic: no nodes Psychiatric: normal affect, A&O x 3 Skin: no rash - Labs Result Diagrams: 03/22/17 04:30 03/22/17 04:30 Lab results: Laboratory Results - last 24 hr 03/21/17 03/21/17 03/21/17 04:10 12:56 20:27 WBC RBC Hgb Hct MCV MCH MCHC RDW Plt Count MPV Neutrophils % Lymphocytes % Monocytes % Eosinophils % Basophils % Neutrophils # Lymphocytes # Monocytes # Eosinophils # Basophils # Sodium 138 Potassium 3.9 Chloride 109 H Carbon Dioxide 19 L Anion Gap 14 BUN 41 H Creatinine 1.58 H Estimated GFR (MDRD) 43 Glucose 130 H POC Glucose 104 135 H Calcium 8.8 03/22/17 03/22/17 03/22/17 04:22 04:30 04:30 WBC 5.3 RBC 2.96 L Hgb 9.3 L Hct 29.4 L MCV 99.1 H MCH 31.4 H MCHC 31.6 L RDW 16.6 H Plt Count 160 MPV 7.0 L Neutrophils % 72.1 Lymphocytes % 18.2 L Monocytes % 8.3 Eosinophils % 1.0 Basophils % 0.4 Neutrophils # 3.9 Lymphocytes # 1.0 L Monocytes # 0.4 Eosinophils # 0.1 Basophils # 0.0 Sodium 139 Potassium 3.4 L Chloride 112 H Carbon Dioxide 20 L Anion Gap 10 BUN 39 H Creatinine 1.56 H Estimated GFR (MDRD) 43 Glucose 103 POC Glucose 108 Calcium 8.5 CCU Progress Note: A/P - Problems (1) Acute respiratory failure with hypoxia Current Visit: Yes Status: Resolved Code(s): J96.01 - ACUTE RESPIRATORY FAILURE WITH HYPOXIA (2) Aspiration pneumonitis Current Visit: Yes Status: Acute Code(s): J69.0 - PNEUMONITIS DUE TO INHALATION OF FOOD AND VOMIT - Time Spent with Patient Time: 50% of the time was spent in coordination of care (as documented) at patient's floor/unit and/or counseling patient. - Plan Plan: Transfer to medical floor Revised accuchecks Decreased steroids ID consulted for ABX recs
--- NOTE | 2017-03-22 08:39 | RAD ---
SINGLE VIEW CHEST: Date: 03/22/17 COMPARISON: 03/21/17. HISTORY: Intubated patient with respiratory failure. FINDINGS: Single view of the chest shows normal sized cardiomediastinal silhouette. Endotracheal tube and NG tu be have been removed. There is no evidence of consolidation, mass, or pleural effusion. IMPRESSION: Stable exam status post extubation. POS: PAOLOH
[2017-03-22] MEDS: Enoxaparin Sodium 40 MG/0.4 ML SYRINGE SC SCH (09:07)
[2017-03-22] MEDS ORDERED: Famotidine 20 MG TAB PO SCH (09:45)
--- NOTE | 2017-03-22 11:01 | PDOC.PN ---
- Subjective Encounter Start Date: 03/22/17 Encounter Start Time: 09:15 Subjective: awake, got extubated yesterday, is doing well -: oriented well - Objective Resuscitation Status: Resuscitation Status FULL:Full Resuscitation MAR Reviewed: Yes Vital Signs & Weight: Vital Signs (12 hours) Temp Pulse Resp Pulse Ox 03/22/17 09:44 98.3 F 03/22/17 08:00 98.6 F 77 16 99 03/22/17 07:00 98.6 F 03/22/17 04:00 97.5 F L 03/22/17 02:27 80 18 97 03/22/17 00:00 97.2 F L Weight Admit Weight 156 lb 1.396 oz Weight 164 lb 10.965 oz Most Recent Monitor Data Heart Rate from ECG 88 NIBP 140/68 NIBP BP-Mean 90 Respiration from ECG 18 SpO2 98 I&O: 03/21/17 03/22/17 03/23/17 06:59 06:59 06:59 Intake Total 2389 2212 946 Output Total 1735 1565 230 Balance 654 647 716 Result Diagrams: 03/22/17 04:30 03/22/17 04:30 Additional Labs: Accuchecks 03/22/17 03/21/17 03/21/17 04:22 20:27 12:56 POC Glucose 108 135 H 104 Phys Exam - Physical Examination HEENT: PERRLA, moist MMs Neck: no JVD, supple Respiratory: no wheezing, no rales Cardiovascular: RRR, no significant murmur Gastrointestinal: soft, non-tender, positive bowel sounds spc+ Musculoskeletal: no edema, pulses present Neurological: non-focal, moves all 4 limbs right LE muscle atrophy Psychiatric: A&O x 3 Dx/Plan (1) Acute respiratory failure with hypoxia Code(s): J96.01 - ACUTE RESPIRATORY FAILURE WITH HYPOXIA Status: Resolved (2) Aspiration pneumonitis Code(s): J69.0 - PNEUMONITIS DUE TO INHALATION OF FOOD AND VOMIT Status: Acute (3) Sepsis Code(s): A41.9 - SEPSIS, UNSPECIFIED ORGANISM Status: Resolved Qualifiers: Sepsis type: sepsis due to unspecified organism Qualified Code(s): A41.9 - Sepsis, unspecified organism (4) Demand ischemia of myocardium Code(s): I24.8 - OTHER FORMS OF ACUTE ISCHEMIC HEART DISEASE Status: Acute (5) YOLETTE (acute kidney injury) Code(s): N17.9 - ACUTE KIDNEY FAILURE, UNSPECIFIED Status: Acute Comment: resolving (6) Metabolic acidosis Code(s): E87.2 - ACIDOSIS Status: Acute Comment: resolving (7) DM type 2 (diabetes mellitus, type 2) Status: Chronic Qualifiers: Diabetes mellitus complication status: with unspecified complications Diabetes mellitus oil heaterman insulin use: without care home use Qualified Code( s): E11.8 - Type 2 diabetes mellitus with unspecified complications (8) HTN (hypertension) Code(s): I10 - ESSENTIAL (PRIMARY) HYPERTENSION Status: Chronic Qualifiers: Hypertension type: essential hypertension Qualified Code(s): I10 - Essential (primary) hypertension (9) Hypothyroidism Code(s): E03.9 - HYPOTHYROIDISM, UNSPECIFIED Status: Chronic Qualifiers: Hypothyroidism type: unspecified Qualified Code(s): E03.9 - Hypothyroidism , unspecified (10) Chronic anemia Code(s): D64.9 - ANEMIA, UNSPECIFIED Status: Chronic - Plan is on multiple antibiotics including clindamycin, cefepime, vanc and levaqu -: follow ID advice for above, not sure if he even requires antibiotics now -: steroid taper -: mobilize as tolerated, oob to chair, PT eval -: renal function is almost baseline * . Review of Systems - Medications/Allergies Allergies/Adverse Reactions: Allergies Allergy/AdvReac Type Severity Reaction Status Date / Time amoxicillin Allergy per doctor Verified 03/20/17 03:40 history codeine AdvReac Intermediate Nausea Verified 03/20/17 03:40 Medications: Current Medications Albuterol/Ipratropium (Duoneb) 3 ml NEB [id number] [facility] Last Admin: 03/22/17 02:27 Dose: 3 ml Dextrose/Water (Dextrose 50%) 25 gm SLOW IVP PRN PRN PRN Reason: Hypoglycemia Enoxaparin Sodium (Lovenox) 40 mg SC 0900 [facility] Last Admin: 03/22/17 09:07 Dose: 40 mg Famotidine (Pepcid) 20 mg PO DAILY [facility] Famotidine (Pepcid) 20 mg PO NOW [facility] Stop: 03/22/17 11:45 Last Admin: 03/22/17 09:36 Dose: 20 mg Glucagon (Glucagon) 1 mg IM PRN PRN PRN Reason: Hypoglycemia Clindamycin Phosphate/Dextrose (900 mg/ Device) 50 mls @ 100 mls/hr IVPB 0600, 1400,2200 [facility] Last Admin: 03/22/17 05:03 Dose: 50 mls Dextrose/Water (D5w) 1,000 mls @ 0 mls/hr IV .Q0M PRN; As Directed PRN Reason: Hypoglycemia Fentanyl (Fentanyl Cadd) 250 mls @ 0 mls/hr IVPB INF CINDY; Titrate PRN Reason: Protocol Stop: 04/19/17 02:17 Fentanyl Citrate (Fentanyl Bolus) 250 mls @ 0 mls/hr IVPB PRN PRN; As Directed PRN Reason: Breakthrough pain Stop: 04/19/17 02:17 Magnesium Sulfate 1 gm/ Sodium (Chloride) 102 mls @ 102 mls/hr IV PRN PRN PRN Reason: MAG LEVEL 1.4 - 2.0 Magnesium Sulfate 2 gm/ Device 100 mls @ 100 mls/hr IVPB ASDIR PRN PRN Reason: MAGNESIUM < 1.4 Levofloxacin 750 mg/ Device 150 mls @ 100 mls/hr IVPB Q2D@0300 [facility] Cefepime HCl 2 gm/ Syringe 2.5 (ml/ Sterile Water) 12.5 mls @ 150 mls/hr SLOW IVP 0100 [facility] Last Admin: 03/22/17 01:10 Dose: 12.5 mls Vancomycin HCl 1 gm/ Device 200 mls @ 200 mls/hr IVPB 0200 [facility] Last Admin: 03/22/17 02:23 Dose: 200 mls Insulin Human Lispro (Humalog) 0 units SC .MILD SLIDING SCALE PRN; Protocol PRN Reason: MILD SLIDING SCALE Lorazepam (Ativan) 2 mg SLOW IVP Q2H PRN PRN Reason: Anxiety to achieve Bianchi 2-3 Stop: 04/19/17 02:17 Last Admin: 03/21/17 21:06 Dose: 2 mg Methylprednisolone Sodium Succinate (Solu-Medrol) 20 mg IVP Q12HR [facility] Methylprednisolone Sodium Succinate (Solu-Medrol) 20 mg IVP NOW [facility] Stop: 03/22/17 11:45 Last Admin: 03/22/17 09:36 Dose: 20 mg Miscellaneous Medication (Pharmacy To Dose) 1 each IVPB PRN PRN PRN Reason: PNEUMONITIS Morphine Sulfate (Morphine) 2 mg IVP Q2H PRN PRN Reason: Breakthrough pain Stop: 04/19/17 02:17 Discontinue Previous Narcotic Pain Medications And Benzodiazepines 1 each FS .ONE CINDY Stop: 04/19/17 02:17 Ccu Electrolyte (Replacement Protocol) 0 each FS PRN PRN PRN Reason: FOR ELECTROLYTE REPLACEMENT Propofol (Diprivan) 1,000 mg IV INF PRN; Protocol PRN Reason: TO ACHIEVE BIANCHI SCORE 2-3 Stop: 04/19/17 02:17 Last Admin: 03/21/17 09:49 Dose: 1,000 mg
[2017-03-23] MEDS: Cefepime 2 GM, Syringe 2.5 ML in Sterile Water 10 ML SLOW IVP SCH (00:14)
[2017-03-23] MEDS: Vancomycin HCl 1 GM in Premix Bag 1 BAG IVPB SCH (01:27)
[2017-03-23 05:11] LABS: #Lymphocytes 0.6 thou/uL (1.20-3.40); #Monocytes 0.3 thou/uL (0.11-0.59); #Neutrophils 3.4 thou/uL (1.40-6.50); %Basophils 0.6 % (0.0-1.0); %Lymphocytes 14.2 % (21.0-51.0); %Monocytes 7.6 % (0.0-10.0); %Neutrophils 76.7 % (42.0-75.0); Hemoglobin 9.6 g/dL (14.0-18.0); Mean Corpuscular HGB CONC 30.3 g/dL (32.0-36.0); Mean Corpuscular Hemoglobin 29.7 pg (27.0-31.0); Mean Platelet Volume 7.2 fL (7.4-10.4); Platelet Count 172 thou/uL (130-400); RBC Distribution Width 16.6 % (11.5-14.5); Red Blood Cell (RBC) Count 3.24 mill/uL (4.70-6.10); White Blood Cell (WBC) Count 4.4 thou/uL (4.8-10.8)
[2017-03-23] MEDS: Clindamycin/D5W 900 MG in Premix Bag 1 BAG IVPB SCH (05:24)
[2017-03-23 05:39] LABS: Anion Gap 10 mmol/L (10-20); BUN (Urea Nitrogen) 34 mg/dL (8.4-25.7); Calc. Creatinine Clearance 46 mL/min (70-130); Calcium 8.7 mg/dL (7.8-10.44); Carbon Dioxide 20 mmol/L (23-31); Chloride 110 mmol/L (98-107); Estimated GFR-MDRD 49; Glucose 150 mg/dL (83-110); Potassium 4.3 mmol/L (3.5-5.1); Sodium 136 mmol/L (136-145)
[2017-03-23] MEDS: Ondansetron HCl/PF 4 MG/2 ML Vial IVP PRN (08:42)
[2017-03-23] MEDS: Enoxaparin Sodium 40 MG/0.4 ML SYRINGE SC SCH (08:42)
[2017-03-23 08:54] VITALS: BMI 28.3
[2017-03-23] MEDS ORDERED: Famotidine 20 MG TAB PO SCH (09:00)
[2017-03-23] MEDS: predniSONE 20 MG TAB PO SCH (09:27)
--- NOTE | 2017-03-23 11:08 | PDOC.PN ---
- Subjective Encounter Start Date: 03/23/17 Encounter Start Time: 08:45 Subjective: awake, watching tv -: no sob, has nausea and vomited last night - Objective Resuscitation Status: Resuscitation Status FULL:Full Resuscitation MAR Reviewed: Yes Vital Signs & Weight: Vital Signs (12 hours) Temp Pulse Resp BP Pulse Ox 03/23/17 08:00 97.9 F 67 20 189/74 H 95 03/23/17 07:48 88 16 96 03/23/17 04:00 97.9 F 71 20 180/72 H Weight Admit Weight 156 lb 1.396 oz Weight 165 lb 3.2 oz Most Recent Monitor Data Heart Rate from ECG 88 NIBP 140/68 NIBP BP-Mean 90 Respiration from ECG 18 SpO2 98 I&O: 03/22/17 03/23/17 03/24/17 06:59 06:59 06:59 Intake Total 2212 1856 Output Total 1565 2480 Balance 647 -624 Result Diagrams: 03/23/17 03:33 03/23/17 03:33 Additional Labs: Accuchecks 03/23/17 03/22/17 03/22/17 05:24 20:18 16:45 POC Glucose 137 H 121 H 145 H 03/22/17 11:24 POC Glucose 142 H Phys Exam - Physical Examination HEENT: PERRLA, moist MMs Neck: no JVD, supple Respiratory: no wheezing, no rales Cardiovascular: RRR, no significant murmur Gastrointestinal: soft, non-tender, positive bowel sounds spc+ Musculoskeletal: no edema, pulses present Neurological: non-focal, moves all 4 limbs chronic contracture of LE Dx/Plan (1) Acute respiratory failure with hypoxia Code(s): J96.01 - ACUTE RESPIRATORY FAILURE WITH HYPOXIA Status: Resolved (2) Aspiration pneumonitis Code(s): J69.0 - PNEUMONITIS DUE TO INHALATION OF FOOD AND VOMIT Status: Acute (3) Sepsis Code(s): A41.9 - SEPSIS, UNSPECIFIED ORGANISM Status: Resolved Qualifiers: Sepsis type: sepsis due to unspecified organism Qualified Code(s): A41.9 - Sepsis, unspecified organism (4) Demand ischemia of myocardium Code(s): I24.8 - OTHER FORMS OF ACUTE ISCHEMIC HEART DISEASE Status: Acute (5) YOLETTE (acute kidney injury) Code(s): N17.9 - ACUTE KIDNEY FAILURE, UNSPECIFIED Status: Acute Comment: resolving (6) Metabolic acidosis Code(s): E87.2 - ACIDOSIS Status: Acute Comment: resolving (7) DM type 2 (diabetes mellitus, type 2) Status: Chronic Qualifiers: Diabetes mellitus complication status: with unspecified complications Diabetes mellitus custodial insulin use: without custodial use Qualified Code( s): E11.8 - Type 2 diabetes mellitus with unspecified complications (8) HTN (hypertension) Code(s): I10 - ESSENTIAL (PRIMARY) HYPERTENSION Status: Chronic Qualifiers: Hypertension type: essential hypertension Qualified Code(s): I10 - Essential (primary) hypertension (9) Hypothyroidism Code(s): E03.9 - HYPOTHYROIDISM, UNSPECIFIED Status: Chronic Qualifiers: Hypothyroidism type: unspecified Qualified Code(s): E03.9 - Hypothyroidism , unspecified (10) Chronic anemia Code(s): D64.9 - ANEMIA, UNSPECIFIED Status: Chronic - Plan dc all antibiotics -: continue steroids -: protonix bid -: dc plan in 24-36hrs to snf if stable -: d/w , speech and PT eval. He says he amb with assistance. * . Review of Systems - Medications/Allergies Allergies/Adverse Reactions: Allergies Allergy/AdvReac Type Severity Reaction Status Date / Time amoxicillin Allergy per doctor Verified 03/20/17 03:40 history codeine AdvReac Intermediate Nausea Verified 03/20/17 03:40 Medications: Current Medications Albuterol/Ipratropium (Duoneb) 3 ml NEB [id number] [facility] Last Admin: 03/23/17 10:04 Dose: Not Given Dextrose/Water (Dextrose 50%) 25 gm SLOW IVP PRN PRN PRN Reason: Hypoglycemia Enoxaparin Sodium (Lovenox) 40 mg SC 0900 [facility] Last Admin: 03/23/17 08:42 Dose: 40 mg Glucagon (Glucagon) 1 mg IM PRN PRN PRN Reason: Hypoglycemia Dextrose/Water (D5w) 1,000 mls @ 0 mls/hr IV .Q0M PRN; As Directed PRN Reason: Hypoglycemia Insulin Human Lispro (Humalog) 0 units SC .MILD SLIDING SCALE PRN; Protocol PRN Reason: MILD SLIDING SCALE Morphine Sulfate (Morphine) 2 mg IVP Q2H PRN PRN Reason: Breakthrough pain Stop: 04/19/17 02:17 Discontinue Previous Narcotic Pain Medications And Benzodiazepines 1 each FS .ONE CINDY Stop: 04/19/17 02:17 Ccu Electrolyte (Replacement Protocol) 0 each FS PRN PRN PRN Reason: FOR ELECTROLYTE REPLACEMENT Ondansetron HCl (Zofran) 4 mg IVP Q6H PRN PRN Reason: Nausea/Vomiting Last Admin: 03/23/17 08:42 Dose: 4 mg Pantoprazole Sodium (Protonix) 40 mg PO BID [facility] Prednisone (Prednisone) 20 mg PO QA-[facility] Last Admin: 03/23/17 09:27 Dose: 20 mg
[2017-03-23] MEDS ORDERED: Amlodipine 10 MG TAB PO SCH (13:00)
--- NOTE | 2017-03-23 13:46 | PDOC.PULPN ---
Progress Note: Subj/Obj - Subjective Date: 03/23/17 Time: 13:44 Subjective: No new complaints. No SOB - ROS Respiratory: no reported symptoms - Objective Allergies/Adverse Reactions: Allergies Allergy/AdvReac Type Severity Reaction Status Date / Time amoxicillin Allergy per doctor Verified 03/20/17 03:40 history codeine AdvReac Intermediate Nausea Verified 03/20/17 03:40 Medications: Current Medications Albuterol/Ipratropium (Duoneb) 3 ml NEB [id number] PRN PRN Reason: sob Amlodipine Besylate (Norvasc) 10 mg PO DAILY CINDY Amlodipine Besylate (Norvasc) 10 mg PO NOW [facility] Stop: 03/23/17 15:00 Last Admin: 03/23/17 13:03 Dose: 10 mg Dextrose/Water (Dextrose 50%) 25 gm SLOW IVP PRN PRN PRN Reason: Hypoglycemia Docusate Sodium (Colace) 100 mg PO DAILY [facility] Enoxaparin Sodium (Lovenox) 40 mg SC 0900 [facility] Last Admin: 03/23/17 08:42 Dose: 40 mg Finasteride (Proscar) 5 mg PO DAILY [facility] Gabapentin (Neurontin) 300 mg PO DAILY [facility] Glucagon (Glucagon) 1 mg IM PRN PRN PRN Reason: Hypoglycemia Dextrose/Water (D5w) 1,000 mls @ 0 mls/hr IV .Q0M PRN; As Directed PRN Reason: Hypoglycemia Insulin Human Lispro (Humalog) 0 units SC .MILD SLIDING SCALE PRN; Protocol PRN Reason: MILD SLIDING SCALE Levothyroxine Sodium (Synthroid) 88 mcg PO 0600 [facility] Melatonin (Melatonin) 3 mg PO HS [facility] Morphine Sulfate (Morphine) 2 mg IVP Q2H PRN PRN Reason: Breakthrough pain Stop: 04/19/17 02:17 Multivitamins (Theragran) 1 tab PO DAILY [facility] Discontinue Previous Narcotic Pain Medications And Benzodiazepines 1 each FS .ONE CINDY Stop: 04/19/17 02:17 Ccu Electrolyte (Replacement Protocol) 0 each FS PRN PRN PRN Reason: FOR ELECTROLYTE REPLACEMENT Ondansetron HCl (Zofran) 4 mg IVP Q6H PRN PRN Reason: Nausea/Vomiting Last Admin: 03/23/17 08:42 Dose: 4 mg Pantoprazole Sodium (Protonix) 40 mg PO BID [facility] Prednisone (Prednisone) 20 mg PO QAM-WM [facility] Last Admin: 03/23/17 09:27 Dose: 20 mg MAR Reviewed: Yes Vital Signs: Vital Signs Temp 97.6 F 03/23/17 12:22 Pulse 68 03/23/17 13:03 Resp 20 03/23/17 12:22 BP 184/73 H 03/23/17 12:22 Pulse Ox 96 03/23/17 12:22 Intake & Output 03/22/17 03/23/17 03/23/17 18:59 06:59 18:59 Intake Total 946 910 Output Total 1180 1300 Balance -234 -390 Weight 165 lb 3.2 oz 165 lb 3.2 oz Intake: Intake, IV Amount 466 550 Potassium Chloride 40 meq 100 In Premix Bag 1 bag @ 50 mls/hr IVPB ASDIR PRN Rx #:[id number] Sodium Chloride 0.9% 1, 366 000 ml @ 75 mls/hr IV . [id number] CINDY Rx#:[id number] Oral 480 360 Output: Output, [place] 1180 1200 Emesis 100 Other: Voiding Method Indwelling Catheter Indwelling Catheter Indwelling Catheter Progress Note: Exam - Physical Exam HEENT: PERRLA, sclera anicteric Neck: no JVD Cardiovascular: RRR Respiratory: clear to auscultation bilaterally Gastrointestinal: soft, no distention Musculoskeletal: no edema Deviation from normal: can't move legs Psychiatric: normal affect, A&O x 3 Skin: no rash - Labs Result Diagrams: 03/23/17 03:33 03/23/17 03:33 Lab results: Laboratory Results - last 24 hr 03/22/17 03/22/17 03/23/17 16:45 20:18 03:33 WBC RBC Hgb Hct MCV MCH MCHC RDW Plt Count MPV Neutrophils % Neutrophils % (Manual) Lymphocytes % Monocytes % Eosinophils % Basophils % Neutrophils # Lymphocytes # Monocytes # Eosinophils # Basophils # Sodium 136 Potassium 4.3 Chloride 110 H Carbon Dioxide 20 L Anion Gap 10 BUN 34 H Creatinine 1.41 H Estimated GFR (MDRD) 49 Glucose 150 H POC Glucose 145 H 121 H Calcium 8.7 03/23/17 03/23/17 03/23/17 03:33 05:24 11:48 WBC 4.4 L RBC 3.24 L Hgb 9.6 L Hct 31.8 L MCV 98.0 H MCH 29.7 MCHC 30.3 L RDW 16.6 H Plt Count 172 MPV 7.2 L Neutrophils % 76.7 H Neutrophils % (Manual) Not Reportable Lymphocytes % 14.2 L Monocytes % 7.6 Eosinophils % 1.0 Basophils % 0.6 Neutrophils # 3.4 Lymphocytes # 0.6 L Monocytes # 0.3 Eosinophils # 0.0 Basophils # 0.0 Sodium Potassium Chloride Carbon Dioxide Anion Gap BUN Creatinine Estimated GFR (MDRD) Glucose POC Glucose 137 H 108 Calcium Progress Note: A/P - Problems (1) Acute respiratory failure with hypoxia Current Visit: Yes Status: Resolved Code(s): J96.01 - ACUTE RESPIRATORY FAILURE WITH HYPOXIA (2) Aspiration pneumonitis Current Visit: Yes Status: Acute Code(s): J69.0 - PNEUMONITIS DUE TO INHALATION OF FOOD AND VOMIT - Plan Plan: Discussed with Dr. Macias Should be ready for dc abx stopped Will sign off. Recall prn
--- NOTE | 2017-03-23 20:45 | CON ---
DATE OF CONSULTATION: 03/23/2017 REASON FOR CONSULTATION: Bacteremia, urinary tract findings. HISTORY OF PRESENT ILLNESS: A 76-year-old history of hypertension, ankylosing spondylitis, type 2 di abetes mellitus, who is a resident at [facility] and was brought in because of confusional stat e and dyspnea. On arrival, he was hypoxic with O2 sat 89%-90% and during the evaluation, he aspirate d and had to have respiratory management with intubation, was transferred to the ICU and he was extub ated promptly in the next day. He has been transferred to the floor. In the admitting evaluation, o ne lactic acid value was elevated at 5.4. There is a note in the admit H&P that he had influenza A p ositive test, although the only test that is available from 03/19 is reported as negative and this is an antigen test from a nasopharyngeal swab. Patient has been receiving broad-spectrum coverage, I b elieve now the antimicrobials have been discontinued. He is awake now and he establishes eye contact , his speech is delayed and sluggish. He has difficulty in finding words. He was somewhat disorient ed to time but immediately recognized proper date, he knew he was at [facility]. REVIEW OF SYSTEMS: Denies any headaches, no visual symptoms. No sore throat. No more cough, no jaclyn st pain, no abdominal pain. He has a suprapubic catheter and some pain in the right knee, but not mu ch out of the ordinary. PAST MEDICAL HISTORY: Chronic anemia with some bone marrow issue may be myelodysplastic syndrome, hy pertension, hypothyroidism, ankylosing spondylitis, neurogenic bladder and myogenic bladder with requ irement for suprapubic catheterization, type 2 diabetes, GERD, osteoarthritis. PAST SURGICAL HISTORY: Includes hip replacements; right knee replacement; shoulder replacement, righ t side. CURRENT MEDICATIONS: DuoNeb, Norvasc, dextrose, Colace, Lovenox, Proscar, Neurontin, glucagon, mary onin, Theragran, Protonix. ALLERGIES: AMOXICILLIN, unknown reactions. FAMILY HISTORY: Noncontributory. SOCIAL HISTORY: [facility] resident, never smoker. PHYSICAL EXAMINATION: VITAL SIGNS: T-max 100.1 on arrival and he has been afebrile since. BP 180/73, pulse 68, respiratio ns 16-20, O2 sat 100%. SKIN: Shows area of little bit of bruising in the left lateral malleolus and peripheral IV access an d suprapubic catheter with normal appearing exit site. No lymphadenopathy. HEENT: Ocular movements conjugate. Oral cavity still with some tetlin teeth in place, diffuse stiff ness. NECK: No jugular venous distention. LUNGS: Symmetric, clear breath sounds. HEART: S1, S2, regular rate. ABDOMEN: Soft. Not distended. No bladder distention. Patient has displaced and lateral deviation of the right lower extremity. No joint inflammatory activity noted. NEUROLOGIC: He is awake, knows his name, knew where he was, did not know the date, follows commands with some limits. LABORATORY DATA: White cell count is down from 9000 to 4000, hemoglobin 9.6, MCV 98, platelets is 17 2,000 with 76% neutrophils. INR 1.2, aPTT 36, pH 7.4, pCO2 of 30, pO2 of 154. Sodium 136, creatinin e 1.41, which is improved from admission. The initial liver profile normal. Albumin 2.8. BNP 0.035 . Microbiology with E. coli and Enterococcus species isolated from the urine suprapubic catheter. E . coli has an ESBL phenotype. The Enterococcus with the usual profile. The patient had an ESBL, E. coli also identified in November the last year. Imaging studies include chest x-ray with no signifi cant infiltrates. ASSESSMENT: 1. Diabetes type 2, neurogenic bladder requiring suprapubic catheter placement. 2. Colonization of urinary tract by the organisms described. 3. Episode of hypoxemia. 4. Mobility impairment, possible Parkinson's disease plus to the abnormalities noted in the right lo wer extremity. 5. Reported history of influenza A. DISCUSSION: The diagnosis of influenza A was not confirmed by the antigen test; however, sensitivity of an antigen test is low, it may have up to 40% of false negatives. The other possibility would be thromboembolism in view of his mobility impairment. We will check a duplex ultrasound of lower extr emities, rule out DVT and check respiratory virus PCR. The organism isolated from blood cultures ref lects contamination of sample and should not be treated. The urinary tract isolates likely also refl ect chronic colonization due to the indwelling suprapubic catheter.
[2017-03-23] MEDS ORDERED: Melatonin 3 MG TAB PO SCH (21:00)
--- NOTE | 2017-03-23 23:48 | ULT ---
BILATERAL LOWER EXTREMITY VENOUS DUPLEX EXAM: 03/23/17 HISTORY: Leg pain. Real time color doppler evaluation of the right and left lower extremities was performed from groin t o calf. This includes evaluation of the common femoral, superficial and profunda femoral, saphenous, popliteal and trifurcation veins. This shows patent deep venous systems bilaterally. There is normal compressibility and augmentation. There is no evidence of DVT. IMPRESSION: No evidence of DVT of either lower extremity. POS: JERICHO
[2017-03-24 01:28] LABS: Vancomycin, Trough 17.7 ug/mL
[2017-03-24 04:29] LABS: #Eosinphils 0.1 thou/uL (0.0-0.7); #Lymphocytes 1.2 thou/uL (1.20-3.40); #Monocytes 0.5 thou/uL (0.11-0.59); #Neutrophils 3.1 thou/uL (1.40-6.50); %Basophils 0.3 % (0.0-1.0); %Eosinophils 2.6 % (0.0-10.0); %Lymphocytes 24.7 % (21.0-51.0); %Monocytes 10.8 % (0.0-10.0); %Neutrophils 61.6 % (42.0-75.0); Hemoglobin 10.4 g/dL (14.0-18.0); Mean Corpuscular HGB CONC 32.1 g/dL (32.0-36.0); Mean Corpuscular Volume 96.5 fl (80.0-94.0); Mean Platelet Volume 6.9 fL (7.4-10.4); Platelet Count 179 thou/uL (130-400); RBC Distribution Width 16.2 % (11.5-14.5); Red Blood Cell (RBC) Count 3.35 mill/uL (4.70-6.10)
[2017-03-24 04:42] LABS: Anion Gap 10 mmol/L (10-20); BUN (Urea Nitrogen) 24 mg/dL (8.4-25.7); Calc. Creatinine Clearance 56 mL/min (70-130); Carbon Dioxide 21 mmol/L (23-31); Chloride 107 mmol/L (98-107); Estimated GFR-MDRD 62; Glucose 90 mg/dL (83-110); Potassium 4.2 mmol/L (3.5-5.1); Sodium 134 mmol/L (136-145)
[2017-03-24] MEDS ORDERED: Levothyroxine Sodium 88 MCG TAB PO SCH (06:00)
[2017-03-24] MEDS: Ondansetron HCl/PF 4 MG/2 ML Vial IVP PRN (06:07)
[2017-03-24] MEDS: predniSONE 20 MG TAB PO SCH (08:48)
[2017-03-24] MEDS: Enoxaparin Sodium 40 MG/0.4 ML SYRINGE SC SCH (08:49)
[2017-03-24] MEDS ORDERED: Amlodipine 10 MG TAB PO SCH (09:00)
[2017-03-24] MEDS ORDERED: Docusate 100 MG CAP PO SCH (09:00)
[2017-03-24] MEDS ORDERED: Gabapentin 300 MG CAP PO SCH (09:00)
[2017-03-24] MEDS ORDERED: Multivit, Therapeutic 1 TAB PO SCH (09:00)
[2017-03-24] MEDS ORDERED: Finasteride 5 MG TAB PO SCH (09:00)
--- NOTE | 2017-03-24 10:36 | PDOC.PN ---
- Subjective Encounter Start Date: 03/24/17 Encounter Start Time: 08:10 Subjective: is still waking up, not in distress - Objective Resuscitation Status: Resuscitation Status FULL:Full Resuscitation MAR Reviewed: Yes Vital Signs & Weight: Vital Signs (12 hours) Temp Pulse Resp BP BP Pulse Ox 03/24/17 08:48 73 194/79 H 03/24/17 08:00 97.7 F 73 20 194/79 H 97 03/24/17 06:02 97.4 F L 73 18 186/73 H 03/24/17 01:10 97.9 F 71 18 184/74 H 95 Weight Admit Weight 156 lb 1.396 oz Weight 164 lb 3.91 oz Most Recent Monitor Data Heart Rate from ECG 88 NIBP 140/68 NIBP BP-Mean 90 Respiration from ECG 18 SpO2 98 I&O: 03/23/17 03/24/17 03/25/17 06:59 06:59 06:59 Intake Total 1856 240 Output Total 2480 2700 Balance -785 -4564 Result Diagrams: 03/24/17 03:47 03/24/17 03:47 Additional Labs: Accuchecks 03/24/17 03/23/17 03/23/17 06:07 19:58 16:13 POC Glucose 89 175 H 176 H 03/23/17 11:48 POC Glucose 108 Phys Exam - Physical Examination HEENT: PERRLA, moist MMs Neck: no JVD, supple Respiratory: no wheezing, no rales Cardiovascular: RRR, no significant murmur Gastrointestinal: soft, non-tender, positive bowel sounds Musculoskeletal: no edema, pulses present Neurological: non-focal, moves all 4 limbs Dx/Plan (1) Acute respiratory failure with hypoxia Code(s): J96.01 - ACUTE RESPIRATORY FAILURE WITH HYPOXIA Status: Resolved (2) Aspiration pneumonitis Code(s): J69.0 - PNEUMONITIS DUE TO INHALATION OF FOOD AND VOMIT Status: Resolved (3) Sepsis Code(s): A41.9 - SEPSIS, UNSPECIFIED ORGANISM Status: Resolved Qualifiers: Sepsis type: sepsis due to unspecified organism Qualified Code(s): A41.9 - Sepsis, unspecified organism (4) Demand ischemia of myocardium Code(s): I24.8 - OTHER FORMS OF ACUTE ISCHEMIC HEART DISEASE Status: Acute (5) YOLETTE (acute kidney injury) Code(s): N17.9 - ACUTE KIDNEY FAILURE, UNSPECIFIED Status: Resolved (6) Metabolic acidosis Code(s): E87.2 - ACIDOSIS Status: Acute Comment: resolving (7) DM type 2 (diabetes mellitus, type 2) Status: Chronic Qualifiers: Diabetes mellitus complication status: with unspecified complications Diabetes mellitus assisted insulin use: without assisted use Qualified Code( s): E11.8 - Type 2 diabetes mellitus with unspecified complications (8) HTN (hypertension) Code(s): I10 - ESSENTIAL (PRIMARY) HYPERTENSION Status: Chronic Qualifiers: Hypertension type: essential hypertension Qualified Code(s): I10 - Essential (primary) hypertension (9) Hypothyroidism Code(s): E03.9 - HYPOTHYROIDISM, UNSPECIFIED Status: Chronic Qualifiers: Hypothyroidism type: unspecified Qualified Code(s): E03.9 - Hypothyroidism , unspecified (10) Chronic anemia Code(s): D64.9 - ANEMIA, UNSPECIFIED Status: Chronic (11) Influenza A Code(s): J10.1 - FLU DUE TO OTH IDENT INFLUENZA VIRUS W OTH RESP MANIFEST Status: Acute - Plan viral pcr came back +ve for infl A, is out of window for Rx -: will revisit this afternoon to see if he is eating and awake -: likely dc this pm/in am -: off all antibiotics -: on prednisone taper * . Review of Systems - Medications/Allergies Allergies/Adverse Reactions: Allergies Allergy/AdvReac Type Severity Reaction Status Date / Time amoxicillin Allergy per doctor Verified 03/20/17 03:40 history codeine AdvReac Intermediate Nausea Verified 03/20/17 03:40 Medications: Current Medications Albuterol/Ipratropium (Duoneb) 3 ml NEB [id number] PRN PRN Reason: sob Amlodipine Besylate (Norvasc) 10 mg PO DAILY [facility] Last Admin: 03/24/17 08:48 Dose: 10 mg Dextrose/Water (Dextrose 50%) 25 gm SLOW IVP PRN PRN PRN Reason: Hypoglycemia Docusate Sodium (Colace) 100 mg PO DAILY [facility] Last Admin: 03/24/17 08:49 Dose: 100 mg Enoxaparin Sodium (Lovenox) 40 mg SC 0900 [facility] Last Admin: 03/24/17 08:49 Dose: 40 mg Finasteride (Proscar) 5 mg PO DAILY [facility] Last Admin: 03/24/17 08:49 Dose: 5 mg Gabapentin (Neurontin) 300 mg PO DAILY [facility] Last Admin: 03/24/17 08:49 Dose: 300 mg Glucagon (Glucagon) 1 mg IM PRN PRN PRN Reason: Hypoglycemia Dextrose/Water (D5w) 1,000 mls @ 0 mls/hr IV .Q0M PRN; As Directed PRN Reason: Hypoglycemia Insulin Human Lispro (Humalog) 0 units SC .MILD SLIDING SCALE PRN; Protocol PRN Reason: MILD SLIDING SCALE Levothyroxine Sodium (Synthroid) 88 mcg PO 0600 [facility] Last Admin: 03/24/17 05:39 Dose: 88 mcg Melatonin (Melatonin) 3 mg PO HS [facility] Last Admin: 03/23/17 20:07 Dose: 3 mg Morphine Sulfate (Morphine) 2 mg IVP Q2H PRN PRN Reason: Breakthrough pain Stop: 04/19/17 02:17 Multivitamins (Theragran) 1 tab PO DAILY [facility] Last Admin: 03/24/17 08:48 Dose: 1 tab Discontinue Previous Narcotic Pain Medications And Benzodiazepines 1 each FS .ONE [facility] Stop: 04/19/17 02:17 Ccu Electrolyte (Replacement Protocol) 0 each FS PRN PRN PRN Reason: FOR ELECTROLYTE REPLACEMENT Ondansetron HCl (Zofran) 4 mg IVP Q6H PRN PRN Reason: Nausea/Vomiting Last Admin: 03/24/17 06:07 Dose: 4 mg Pantoprazole Sodium (Protonix) 40 mg PO BID [facility] Last Admin: 03/24/17 08:48 Dose: 40 mg Prednisone (Prednisone) 20 mg PO QA-[facility] Last Admin: 03/24/17 08:48 Dose: 20 mg
[2017-03-24 12:44] VITALS: BP 189/75; TEMP 97.6
--- NOTE | 2017-03-25 00:48 | DIS ---
DATE OF ADMISSION: 03/10/2017 DATE OF DISCHARGE: 03/24/2017 DISCHARGE DISPOSITION: [facility]. PRIMARY DISCHARGE DIAGNOSES: Influenza A, acute respiratory failure with intubation on arrival, resolved; aspiration pneumonitis, resolving, demand ischemia on arrival, acute kidney injury with metabolic acidosis, both resolved. SECONDARY DISCHARGE DIAGNOSES: Diabetes mellitus type 2, hypertension, hypothyroidism, chronic anemia. PROCEDURES DONE DURING HOSPITALIZATION: The patient has had a chest x-ray done on the day of admission, which showed no obvious pneumonia. Ultrasound venous Doppler of lower extremities done showed no evidence of DVT. Urine culture grew E. coli and Enterococcus likely this is due to colonization with his suprapubic catheter. Influenza A and B antigen nasal swab was negative. Respiratory virus panel, PCR done was positive for influenza A. Discharge white count of 5, H&H 10 and 32, platelet count 179. Troponin I was indeterminate with peaking up to 0.03. BNP is 548. Initial BUN and creatinine were 38 and 1.6. DISCHARGE MEDICATIONS: Albuterol nebulizer q.6 h. p.r.n., Norvasc 10 mg p.o. daily, aspirin 81 mg p.o. daily, Coreg 25 mg twice daily, Colace 100 mg p.o. daily, ferrous sulfate 325 mg p.o. daily, finasteride 5 mg p.o. daily, Neurontin 300 mg p.o. daily and 600 mg p.o. at bedtime, levothyroxine 88 mcg p.o. daily, melatonin 3 mg p.o. at bedtime, multivitamin 1 tab once daily, omeprazole 20 mg p.o. daily, Januvia 50 mg p.o. daily, sulfasalazine 1000 mg p.o. twice daily, Ultram p.r.n. for pain. ALLERGIES: AMOXICILLIN, and CODEINE. INPATIENT CONSULTS: Dr. Kaminski/Jared for Pulmonology. BRIEF COURSE DURING HOSPITALIZATION: Patient initially got admitted on the after he was sent from [facility] for shortness of breath. The patient apparently vomited in the ER and aspirated. He had to be intubated for airway. His initial saturations on arrival was 89% on room air. Had a temperature of 101 in the ER on arrival. He was admitted to ICU and has had consultation with Dr. Kaminski. The patient was on broad spectrum IV antibiotics. Also there was initial suspicion for flu. His nasal swab was negative for antigen for both influenza A and B antigens. A subsequent PCR done on the was came back positive for influenza A. His IV antibiotics were discontinued after 72 hours. He has done remarkably well. He is tolerating oral solid diet and is on a mechanical soft diet per speech therapist recommendation. If patient tolerates diet this afternoon he will be discharged back to his new [facility] this afternoon. Otherwise, he is hemodynamically stable. Please see a [id number] documentation on [facility] for the day of discharge. Total of 35 minutes was spent on discharge plan. The patient was successfully extubated within 30 hours of hospitalization. [facility] CENTERAnali
--- NOTE | 2017-04-13 15:13 | EKG ---
Test Reason : Blood Pressure : / mmHG Vent. Rate : 102 BPM Atrial Rate : 102 BPM P-R Int : 000 ms QRS Dur : 094 ms QT Int : 362 ms P-R-T Axes : 000 -23 040 degrees QTc Int : 471 ms Sinus tachycardia with 1st degree A-V block with occasional Premature ventricular complexes Moderate voltage criteria for LVH, may be normal variant Borderline ECG Confirmed by SHAYY GANN ([id number]), staff editor MIGUEL ANGEL PUGH ([id number]) on 04/13/2017 3:12:54 PM Referred By: Confirmed By:SHAYY GANN
== END 2017-03-24 16:20 | DRG 871 ==
LOC: ERS 21:29 → CCU 03-20 01:31 → T4-B 03-22 10:32
PROVIDERS: ADMIT Internal Medicine Infectious Disease; ATTEND Internal Medicine Infectious Disease
PROC: 0BH17EZ Insertion of Endotracheal Airway into Trachea, Via Natural or Artificial Opening (ICD-10-PCS; principal; 2017-03-20)
PROC: 5A1945Z Respiratory Ventilation, 24-96 Consecutive Hours (ICD-10-PCS; 2017-03-20)
DX: A41.9 Sepsis, unspecified organism (principal); J69.0 Pneumonitis due to inhalation of food and vomit; J96.01 Acute respiratory failure with hypoxia; N17.9 Acute kidney failure, unspecified; E87.2 Acidosis; R13.10 Dysphagia, unspecified; I24.8 Other forms of acute ischemic heart disease; R65.20 Severe sepsis without septic shock; D64.9 Anemia, unspecified; E11.9 Type 2 diabetes mellitus without complications; I10 Essential (primary) hypertension; E03.9 Hypothyroidism, unspecified; R06.02 Shortness of breath; K21.9 Gastro-esophageal reflux disease without esophagitis; Z79.84 Long term (current) use of oral hypoglycemic drugs; Z79.82 Long term (current) use of aspirin; Z88.1 Allergy status to other antibiotic agents; Z88.5 Allergy status to narcotic agent; J10.1 Influenza due to other identified influenza virus with other respiratory manifestations; M45.9 Ankylosing spondylitis of unspecified sites in spine; Z96.0 Presence of urogenital implants
CPT/HCPCS: 31500; 36415; 36416; 71010; 80048; 80053; 80202; 82550; 82553; 82805; 83605; 83690; 83735; 83880; 84484; 85025; 85379; 85610; 85730; 86850; 86900; 86901; 86922; 87040; 87077; 87086; 87149; 87186; 87633; 87804; 93005; 93970; 94002; 94003; 94640; 96365; 96366; 96368; 96375; 99292; A4216; G8978-GP-CM; G8979-GP-CK; G8996-GN-CJ; G8997-GN-CJ; J0692; J1650; J1815; J1956; J2060; J2405; J2704; J2920; J2930; J3010; J3370; J3480; J3490; J7050; J7506; J7620; S0028

== ENCOUNTER 2017-06-27 06:44 | Inpatient (IN) | payer MEDICARE, MEDICAID ==
[2017-06-27 07:35] LABS: Bilirubin Negative (Negative); Blood, Urine Moderate (Negative); Clarity TURBID (Clear); Glucose, Urine (Dipstick) Negative (Negative); Leukocyte Large (Negative); Nitrite Negative (Negative); Protein, Urine (Dipstick) > or equal to 300 mg/dL (Neg-Trace); Specific Gravity, Urine 1.018 (1.002-1.036); Urobilinogen 0.2 mg/dL (0.2-1.0)
[2017-06-27 07:38] LABS: #Eosinphils 0.2 thou/uL (0.0-0.7); #Lymphocytes 0.8 thou/uL (1.20-3.40); #Monocytes 0.3 thou/uL (0.11-0.59); #Neutrophils 1.4 thou/uL (1.40-6.50); %Basophils 0.4 % (0.0-1.0); %Eosinophils 6.8 % (0.0-10.0); %Lymphocytes 30.4 % (21.0-51.0); %Monocytes 10.4 % (0.0-10.0); %Neutrophils 52.1 % (42.0-75.0); Hemoglobin 8.8 g/dL (14.0-18.0); Mean Corpuscular HGB CONC 33.3 g/dL (32.0-36.0); Mean Corpuscular Hemoglobin 32.5 pg (27.0-31.0); Mean Corpuscular Volume 97.6 fl (80.0-94.0); Mean Platelet Volume 6.5 fL (7.4-10.4); Platelet Count 140 thou/uL (130-400); RBC Distribution Width 13.7 % (11.5-14.5); White Blood Cell (WBC) Count 2.7 thou/uL (4.8-10.8)
[2017-06-27 07:38] LABS: Bacteria/HPF 4+ HPF (None Seen)
[2017-06-27 07:53] LABS: CKMB 0.7 ng/mL (0-6.6); Troponin I 0.038 ng/mL (< 0.028)
[2017-06-27 07:59] LABS: ALT (SGPT) 8 U/L (8-55); AST (SGOT) 12 U/L (5-34); Albumin 2.8 g/dL (3.4-4.8); Alkaline Phosphatase 44 U/L (40-150); Anion Gap 9 mmol/L (10-20); BUN (Urea Nitrogen) 25 mg/dL (8.4-25.7); Bilirubin, Total 0.3 mg/dL (0.2-1.2); Calc. Creatinine Clearance 0 mL/min (70-130); Carbon Dioxide 27 mmol/L (23-31); Chloride 107 mmol/L (98-107); Estimated GFR-MDRD 37; Globulin 2.8 g/dL (2.4-3.5); Glucose 142 mg/dL (83-110); Potassium 4.2 mmol/L (3.5-5.1); Protein, Total 5.6 g/dL (5.8-8.1); Sodium 139 mmol/L (136-145)
[2017-06-27 08:11] LABS: Yeast-AUWi Flag 75.3 (0-25.0)
[2017-06-27 08:12] LABS: Pathc Cast-AUWi Flag 7.86 (0-2.49)
[2017-06-27 08:13] LABS: Hyaline Casts/LPF 0-3 HYALINE CAST LPF (0-3 Hyaline); Manual Microscopic Reviewed? No Path Casts Seen; Yeast-All Forms None Seen HPF (None Seen)
--- NOTE | 2017-06-27 08:29 | RAD ---
PORTABLE CHEST 1 VIEW: Date: 06/27/17 Time: 0727 hours HISTORY: Dyspnea. FINDINGS: Comparison made with exam of 03/22/17. The heart size is normal. No confluent areas of consolidation, pneumothoraces, or pleural effusions a re seen. There are degenerative changes in the shoulder joints. Postop changes are present in the cer vical spine. IMPRESSION: No acute process. POS: OFF
--- NOTE | 2017-06-27 10:19 | RAD ---
PELVIC RADIOGRAPH: Date: 06/27/17 PROVIDED CLINICAL HISTORY: Injury. FINDINGS: No comparison examination is currently available. Extensive postoperative changes are seen involving each hip. Changes of right total hip arthroplasty are demonstrated. Cerclage cable associated with the right proximal femur appears fractured and displ aced. There is an abnormal appearance to the proximal femur surrounding the intertrochanteric portion of the femoral prosthesis, which could reflect periprosthetic fracture. Left hip total arthroplasty changes are seen without evidence for hardware complication. Diffuse regional osteopenia. Degenerativ e changes are seen involving the lower lumbar spine. An indistinct appearance to the sacroiliac joint s bilaterally may reflect ankylosis. IMPRESSION: Age-indeterminate fragmented appearance to the intertrochanteric region of the right proximal femur. Correlation with prior radiographs is necessary to establish the chronicity of this process. POS: [facility]
[2017-06-27 10:48] LABS: Troponin I 0.038 ng/mL (< 0.028)
[2017-06-27 14:22] LABS: Troponin I 0.033 ng/mL (< 0.028)
[2017-06-27] MEDS ORDERED: Dextrose 5% in Water 1,000 ML IV PRN (15:05)
[2017-06-27] MEDS ORDERED: Dextrose 50% Abboject 50 ML SYRINGE SLOW IVP PRN (15:05)
[2017-06-27] MEDS ORDERED: HumaLOG 300 UNITS/3 ML VIAL SC PRN (15:05)
[2017-06-27] MEDS ORDERED: Acetaminophen 325 MG TAB PO PRN (15:05)
[2017-06-27] MEDS ORDERED: Furosemide 20 MG/2 ML VIAL SLOW IVP SCH (17:15)
[2017-06-27 18:26] VITALS: BMI 24.3
--- NOTE | 2017-06-27 20:45 | HP ---
DATE OF ADMISSION: 06/27/2017 REASON FOR ADMISSION: Acute kidney injury, acute respiratory failure with hypoxia, likely aspiration. HISTORY OF PRESENTING ILLNESS: Please note majority of this history is obtained by my talking to ER physician and the patient's son, Mr. Remy Montelongo. He was sent from [facility] for hypoxia with saturations dropping to 84% at the residential. He was placed on 2 liters nasal cannula and the oxygen saturations promptly came up to 93. He has had a complete workup done in the ER which shows hemoglobin of 8.8 grams, creatinine of 1.7, troponin of 0.03. Currently, the patient has shortness of breath and is having dry coughing spells. No complaints of chest pain or palpitation. 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 PERSONAL HISTORY: Does not abuse alcohol or drugs. No history of smoking. He is a residential resident at [facility]. FAMILY HISTORY: is currently hospitalized here. Further information from patient can be obtained as he is not fully oriented. REVIEW OF SYSTEMS: Cannot be obtained as the patient is not fully oriented. CURRENT MEDICATIONS: At the residential, the patient is on levothyroxine 88 mcg p.o. daily, Coreg 25 mg p.o. twice daily, melatonin 3 mg p.o. at bedtime, sulfasalazine 1000 mg p.o. twice daily, Ultram p.r.n. for pain, Protonix 40 mg p.o. daily, Norvasc 10 mg p.o. daily, aspirin 81 mg p.o. daily, Florastor 1 tab daily, Colace 100 mg twice daily, multivitamin 1 tab once daily, gabapentin 300 mg p.o. daily and 600 mg p.o. at bedtime, DuoNebs q.6 hourly p.r.n., Januvia 50 mg p.o. daily, ferrous sulfate 325 mg p.o. daily, finasteride 5 mg p.o. daily, losartan 25 mg p.o. daily. ALLERGIES: Allergic to CODEINE and PENICILLIN. PHYSICAL EXAMINATION: GENERAL: The patient is a 77-year-old male who is currently not in any acute distress. VITAL SIGNS: Blood pressure 186/74, pulse 74 per minute, respiratory rate is 20 per minute, saturating 100% on 2 liters nasal cannula. NECK: Supple, no elevated JVD. HEENT: Extraocular muscles intact. Pupils reacting to light. Oral cavity, mucous membranes are dry. No exudates or congestion. CARDIOVASCULAR: S1, S2 heard. Regular rhythm. RESPIRATORY: Air entry 1+ bilateral. Scattered rhonchi plus bilateral. ABDOMEN: Soft, bowel sounds heard. No tenderness, rigidity or guarding. EXTREMITIES: No peripheral edema. The patient has chronic shortening of right lower extremity with external rotation, also has wasting of muscles in the right lower extremity. He also has mild peripheral edema in both lower extremities. VASCULAR SYSTEM: Peripheral pulses 1+ bilateral, no ischemic ulcerations or gangrene. CENTRAL NERVOUS SYSTEM: No gross focal deficits seen. The patient moves all 4 extremities. PSYCHIATRIC: The patient does not have any obvious hallucinations or delusions. LABORATORY AND X-RAY FINDINGS: White count of 2.7, H and H 8.8 and 26, platelet count is 140, MCV is 97 with 52% neutrophils, has 10% monocytes. BUN 25, creatinine 1.7, serum bicarbonate 27. Serum glucose 142. Troponin I peaking up to 0.03. CK-MB 0.7. Liver enzymes are within normal limits. Albumin is 2.8. UA, the patient has suprapubic catheter and is chronically colonized with large leukocyte esterase and 4+ bacteria. Pelvic x-ray done shows age indeterminate fragmented appearance to the intertrochanteric region of the right proximal femur. Chest x-ray done showed no acute process. EKG done shows normal sinus rhythm at 77 beats per minute. CLINICAL IMPRESSION AND PLAN: The patient will be admitted to telemetry for likely episode of aspiration with acute respiratory failure with hypoxia. He is currently saturating well on 2 liters nasal cannula. He will be placed on DuoNebs along with Solu-Medrol 20 mg IV q.8 hourly. We will also continue his home medications including Norvasc, aspirin, Coreg, ferrous sulfate, Synthroid and Lactobacillus as before. His gabapentin will be reduced to once daily for now. I have discussed code status with the patient's son, Mr. Alberto, who is also the power of banking attorney for the patient. He wants him to be a DO NOT RESUSCITATE. We will continue to closely monitor him on telemetry. ODILON
[2017-06-27] MEDS: Docusate 100 MG CAP PO SCH (21:30)
[2017-06-27] MEDS: Guaifenesin DM 100-10/5 ML UDCUP PO PRN (21:30)
[2017-06-27] MEDS: Carvedilol 25 MG TAB PO SCH (21:30)
[2017-06-28 05:38] LABS: #Lymphocytes 0.6 thou/uL (1.20-3.40); #Monocytes 0.1 thou/uL (0.11-0.59); #Neutrophils 2.2 thou/uL (1.40-6.50); %Basophils 0.4 % (0.0-1.0); %Eosinophils 0.4 % (0.0-10.0); %Lymphocytes 20.3 % (21.0-51.0); %Monocytes 2.5 % (0.0-10.0); %Neutrophils 76.5 % (42.0-75.0); Hemoglobin 9.1 g/dL (14.0-18.0); Mean Corpuscular HGB CONC 31.8 g/dL (32.0-36.0); Mean Corpuscular Hemoglobin 31.3 pg (27.0-31.0); Mean Corpuscular Volume 98.5 fl (80.0-94.0); Mean Platelet Volume 6.9 fL (7.4-10.4); Platelet Count 133 thou/uL (130-400); RBC Distribution Width 13.7 % (11.5-14.5); White Blood Cell (WBC) Count 2.8 thou/uL (4.8-10.8)
[2017-06-28] MEDS: Levothyroxine Sodium 88 MCG TAB PO SCH (05:59)
[2017-06-28 06:04] LABS: Anion Gap 12 mmol/L (10-20); BUN (Urea Nitrogen) 26 mg/dL (8.4-25.7); Calc. Creatinine Clearance 35 mL/min (70-130); Calcium 8.9 mg/dL (7.8-10.44); Carbon Dioxide 26 mmol/L (23-31); Chloride 106 mmol/L (98-107); Estimated GFR-MDRD 37; Glucose 183 mg/dL (83-110); Potassium 4.6 mmol/L (3.5-5.1); Sodium 139 mmol/L (136-145)
[2017-06-28] MEDS ORDERED: Prevnar 13-Val Conj/PF 0.5 ML SYRINGE IM ONE (09:00)
[2017-06-28] MEDS: Gabapentin 300 MG CAP PO SCH (09:43)
[2017-06-28] MEDS: Lactinex Tablet PO SCH (09:43)
[2017-06-28] MEDS: Ferrous Sulfate 325 MG TAB PO SCH (09:43)
[2017-06-28] MEDS: Famotidine 20 MG TAB PO SCH (09:43)
[2017-06-28] MEDS: Enoxaparin Sodium 40 MG/0.4 ML SYRINGE SC SCH (09:44)
[2017-06-28] MEDS: Aspirin 81 mg Enteric Coated Tablet PO SCH (09:44)
[2017-06-28] MEDS: Carvedilol 25 MG TAB PO SCH ×2 (09:44→20:34)
[2017-06-28] MEDS: Docusate 100 MG CAP PO SCH ×2 (09:44→20:34)
[2017-06-28] MEDS: Amlodipine 10 MG TAB PO SCH (09:45)
--- NOTE | 2017-06-28 12:26 | PDOC.PN ---
- Subjective Encounter Start Date: 06/28/17 Encounter Start Time: 11:00 Subjective: awake, not in distress -: responds to questions, is moving all extremities - Objective Resuscitation Status: Resuscitation Status DNR:Do Not Resuscitate MAR Reviewed: Yes Vital Signs & Weight: Vital Signs (12 hours) Temp Pulse Resp BP BP Pulse Ox 06/28/17 11:50 97.8 F 68 16 182/60 H 94 L 06/28/17 09:45 67 192/71 H 06/28/17 09:30 98.1 F 67 16 96 06/28/17 08:00 98.1 F 55 L 16 203/75 H 96 06/28/17 06:53 92 L 06/28/17 06:51 74 16 92 L 06/28/17 04:00 98.2 F 67 18 174/80 H 94 L 06/28/17 01:55 67 12 97 Weight Weight 160 lb 1.6 oz I&O: 06/27/17 06/28/17 06/29/17 06:59 06:59 06:59 Intake Total 240 Output Total 500 Balance -260 Result Diagrams: 06/28/17 04:20 06/28/17 04:20 Additional Labs: Accuchecks 06/28/17 06/28/17 06/28/17 11:14 05:38 00:25 POC Glucose 265 H 198 H 196 H Phys Exam - Physical Examination HEENT: PERRLA, moist MMs Neck: no JVD, supple Respiratory: no wheezing, no rales Cardiovascular: RRR, no significant murmur Gastrointestinal: soft, non-tender, positive bowel sounds Musculoskeletal: no edema, pulses present Neurological: non-focal, moves all 4 limbs Dx/Plan (1) Aspiration pneumonitis Code(s): J69.0 - PNEUMONITIS DUE TO INHALATION OF FOOD AND VOMIT Status: Acute (2) Acute respiratory failure with hypoxia Code(s): J96.01 - ACUTE RESPIRATORY FAILURE WITH HYPOXIA Status: Acute (3) Chronic anemia Code(s): D64.9 - ANEMIA, UNSPECIFIED Status: Chronic (4) DM type 2 (diabetes mellitus, type 2) Status: Chronic Qualifiers: Diabetes mellitus terminal manager insulin use: without care home use Diabetes mellitus complication status: with unspecified complications Qualified Code(s) : E11.8 - Type 2 diabetes mellitus with unspecified complications (5) HTN (hypertension) Code(s): I10 - ESSENTIAL (PRIMARY) HYPERTENSION Status: Chronic Qualifiers: Hypertension type: essential hypertension (6) Hypothyroidism Code(s): E03.9 - HYPOTHYROIDISM, UNSPECIFIED Status: Chronic Qualifiers: Hypothyroidism type: unspecified (7) CKD (chronic kidney disease) stage 3, GFR 30-59 ml/min Code(s): N18.3 - CHRONIC KIDNEY DISEASE, STAGE 3 (MODERATE) Status: Chronic - Plan is on steroids for asp pneumonitis -: is at risk for recurrent aspiration, pt is DNR -: on dc try to set up palliative/hospice if son agrees -: continue asp, coreg and norvasc -: add hydralazine tid, watch for renal function * . Review of Systems - Medications/Allergies Allergies/Adverse Reactions: Allergies Allergy/AdvReac Type Severity Reaction Status Date / Time amoxicillin Allergy per doctor Verified 03/20/17 03:40 history codeine AdvReac Intermediate Nausea Verified 03/20/17 03:40 Medications: Current Medications Acetaminophen (Tylenol) 650 mg PO Q4H PRN PRN Reason: Headache/Fever or Pain Acidophilus (Floranex) 1 tab PO DAILY [facility] Last Admin: 06/28/17 09:43 Dose: 1 tab Albuterol/Ipratropium (Duoneb) 3 ml NEB [id number] [facility] Last Admin: 06/28/17 06:51 Dose: 3 ml Amlodipine Besylate (Norvasc) 10 mg PO DAILY [facility] Last Admin: 06/28/17 09:45 Dose: 10 mg Aspirin (Ecotrin) 81 mg PO DAILY [facility] Last Admin: 06/28/17 09:44 Dose: 81 mg Carvedilol (Coreg) 25 mg PO BID [facility] Last Admin: 06/28/17 09:44 Dose: 25 mg Dextrose/Water (Dextrose 50%) 25 gm SLOW IVP PRN PRN PRN Reason: Hypoglycemia Docusate Sodium (Colace) 100 mg PO BID [facility] Last Admin: 06/28/17 09:44 Dose: 100 mg Enoxaparin Sodium (Lovenox) 40 mg SC 0900 [facility] Last Admin: 06/28/17 09:44 Dose: 40 mg Famotidine (Pepcid) 20 mg PO DAILY [facility] Last Admin: 06/28/17 09:43 Dose: 20 mg Ferrous Sulfate (Feosol) 325 mg PO DAILY [facility] Last Admin: 06/28/17 09:43 Dose: 325 mg Gabapentin (Neurontin) 300 mg PO DAILY [facility] Last Admin: 06/28/17 09:43 Dose: 300 mg Glucagon (Glucagon) 1 mg IM PRN PRN PRN Reason: Hypoglycemia Guaifenesin/Dextromethorphan (Robitussin Dm) 15 ml PO Q4H PRN PRN Reason: Cough Last Admin: 06/27/17 21:30 Dose: 15 ml Dextrose/Water (D5w) 1,000 mls @ 0 mls/hr IV .Q0M PRN; As Directed PRN Reason: Hypoglycemia Insulin Human Lispro (Humalog) 0 units SC .MILD SLIDING SCALE PRN PRN Reason: Mild Correctional Scale Insulin Human Lispro (Humalog) 0 units SC .BEDTIME SLIDING SC PRN PRN Reason: Bedtime Correctional Scale Levothyroxine Sodium (Synthroid) 88 mcg PO 0600 [facility] Last Admin: 06/28/17 05:59 Dose: 88 mcg Methylprednisolone Sodium Succinate (Solu-Medrol) 20 mg IVP Q8HR [facility] Last Admin: 06/28/17 05:59 Dose: 20 mg
[2017-06-28] MEDS: HumaLOG 300 UNITS/3 ML VIAL SC PRN ×2 (12:38→18:17)
[2017-06-28] MEDS: hydrALAZINE 25 MG TAB PO SCH ×2 (13:14→20:34)
[2017-06-28] MEDS: Guaifenesin DM 100-10/5 ML UDCUP PO PRN (13:19)
[2017-06-29 04:54] LABS: #Lymphocytes 0.9 thou/uL (1.20-3.40); #Monocytes 0.5 thou/uL (0.11-0.59); #Neutrophils 2.9 thou/uL (1.40-6.50); %Basophils 0.2 % (0.0-1.0); %Eosinophils 0.3 % (0.0-10.0); %Lymphocytes 21.8 % (21.0-51.0); %Monocytes 10.8 % (0.0-10.0); Hemoglobin 8.4 g/dL (14.0-18.0); Mean Corpuscular HGB CONC 33.9 g/dL (32.0-36.0); Mean Corpuscular Hemoglobin 31.9 pg (27.0-31.0); Mean Corpuscular Volume 93.9 fl (80.0-94.0); Mean Platelet Volume 6.6 fL (7.4-10.4); Platelet Count 140 thou/uL (130-400); RBC Distribution Width 13.4 % (11.5-14.5); Red Blood Cell (RBC) Count 2.65 mill/uL (4.70-6.10); White Blood Cell (WBC) Count 4.3 thou/uL (4.8-10.8)
[2017-06-29 05:06] LABS: Anion Gap 8 mmol/L (10-20); BUN (Urea Nitrogen) 28 mg/dL (8.4-25.7); Calc. Creatinine Clearance 39 mL/min (70-130); Calcium 8.8 mg/dL (7.8-10.44); Carbon Dioxide 29 mmol/L (23-31); Chloride 105 mmol/L (98-107); Estimated GFR-MDRD 43; Glucose 138 mg/dL (83-110); Potassium 3.8 mmol/L (3.5-5.1); Sodium 138 mmol/L (136-145)
[2017-06-29] MEDS: Levothyroxine Sodium 88 MCG TAB PO SCH (05:33)
[2017-06-29] MEDS: Guaifenesin DM 100-10/5 ML UDCUP PO PRN (05:34)
[2017-06-29] MEDS ORDERED: predniSONE 5 MG TAB PO SCH (08:00)
[2017-06-29] MEDS: Enoxaparin Sodium 40 MG/0.4 ML SYRINGE SC SCH (08:44)
[2017-06-29] MEDS: Lactinex Tablet PO SCH (08:45)
[2017-06-29] MEDS: Gabapentin 300 MG CAP PO SCH (08:45)
[2017-06-29] MEDS: hydrALAZINE 25 MG TAB PO SCH ×2 (08:45→11:59)
[2017-06-29] MEDS: Aspirin 81 mg Enteric Coated Tablet PO SCH (08:45)
[2017-06-29] MEDS: Carvedilol 25 MG TAB PO SCH (08:45)
[2017-06-29] MEDS: Docusate 100 MG CAP PO SCH (08:45)
[2017-06-29] MEDS: Amlodipine 10 MG TAB PO SCH (08:45)
[2017-06-29] MEDS: Famotidine 20 MG TAB PO SCH (08:45)
[2017-06-29] MEDS: Ferrous Sulfate 325 MG TAB PO SCH (08:46)
--- NOTE | 2017-06-29 09:58 | RAD ---
PORTABLE AP CHEST RADIOGRAPH: Date: 06-29-17 History: History of recurrent aspiration. Follow up evaluation. Comparison: 06-27-17 FINDINGS: Post-surgical changes in the lower cervical spine are again noted. Cardiac silhouette is magnified by projection. Pulmonary vasculature is within normal limits. The lungs remains clear. There is right g lenohumeral osteoarthropathy and narrowing of the subacromial space on the right. There has been no i nterval change from prior exam. IMPRESSION: Stable chest without evidence of acute cardiopulmonary process. POS: [facility]
[2017-06-29 11:58] VITALS: BP 187/73; TEMP 98
--- NOTE | 2017-06-29 12:39 | PDOC.PN ---
- Subjective Encounter Start Date: 06/29/17 Encounter Start Time: 07:45 Subjective: no sob, feels better -: not fully oriented - Objective Resuscitation Status: Resuscitation Status DNR:Do Not Resuscitate MAR Reviewed: Yes Vital Signs & Weight: Vital Signs (12 hours) Temp Pulse Resp BP BP Pulse Ox 06/29/17 11:59 73 187/73 H 06/29/17 11:00 98.0 F 73 16 187/73 H 96 06/29/17 08:45 72 169/68 H 06/29/17 08:00 97.5 F L 72 16 97 06/29/17 07:46 97.5 F L 72 16 169/68 H 97 06/29/17 06:41 70 15 95 06/29/17 04:00 97.9 F 72 18 167/70 H 96 06/29/17 01:04 12 Weight Weight 160 lb 1.6 oz I&O: 06/28/17 06/29/17 06/30/17 06:59 06:59 06:59 Intake Total 240 1240 120 Output Total 500 1050 Balance -260 190 120 Result Diagrams: 06/29/17 03:55 06/29/17 03:55 Additional Labs: Accuchecks 06/29/17 06/29/17 06/28/17 10:56 05:15 20:15 POC Glucose 140 H 138 H 275 H 06/28/17 16:15 POC Glucose 284 H Phys Exam - Physical Examination HEENT: PERRLA, sclera anicteric Neck: no JVD, supple Respiratory: no wheezing, no rales Cardiovascular: RRR, no significant murmur Gastrointestinal: soft, non-tender, positive bowel sounds spc+ Musculoskeletal: no edema, pulses present Neurological: non-focal, moves all 4 limbs Dx/Plan (1) Aspiration pneumonitis Code(s): J69.0 - PNEUMONITIS DUE TO INHALATION OF FOOD AND VOMIT Status: Acute (2) Acute respiratory failure with hypoxia Code(s): J96.01 - ACUTE RESPIRATORY FAILURE WITH HYPOXIA Status: Resolved (3) Chronic anemia Code(s): D64.9 - ANEMIA, UNSPECIFIED Status: Chronic (4) DM type 2 (diabetes mellitus, type 2) Status: Chronic Qualifiers: Diabetes mellitus tank terminal gauger insulin use: without senior care use Diabetes mellitus complication status: with unspecified complications Qualified Code(s) : E11.8 - Type 2 diabetes mellitus with unspecified complications (5) HTN (hypertension) Code(s): I10 - ESSENTIAL (PRIMARY) HYPERTENSION Status: Chronic Qualifiers: Hypertension type: essential hypertension (6) Hypothyroidism Code(s): E03.9 - HYPOTHYROIDISM, UNSPECIFIED Status: Chronic Qualifiers: Hypothyroidism type: unspecified (7) CKD (chronic kidney disease) stage 3, GFR 30-59 ml/min Code(s): N18.3 - CHRONIC KIDNEY DISEASE, STAGE 3 (MODERATE) Status: Chronic - Plan spo2 95% on room air -: dc steroids -: nebs prn -: asp precautions at [facility], d/w son -: dc pt to [facility] * .
--- NOTE | 2017-06-29 14:48 | DIS ---
DATE OF ADMISSION: 06/27/2017 DATE OF DISCHARGE: 06/29/2017 DISCHARGE DISPOSITION: To [facility]. PRIMARY DISCHARGE DIAGNOSES: Aspiration pneumonitis, resolved. Acute respiratory failure with hypoxia, resolved secondary to aspiration. SECONDARY DISCHARGE DIAGNOSES: Diabetes mellitus type 2, hypertension, hypothyroidism, chronic kidney disease stage 3, chronic anemia. PROCEDURES DONE DURING HOSPITALIZATION: The patient has had chest x-ray done, which showed no evidence of acute infiltrate. Repeat chest x-ray done on the shows similar findings with no acute cardiopulmonary process. Pelvic x -ray done on the day of admission showed age indeterminate fragmented appearance to intertrochanteric region of right proximal femur. Urine culture shows gram negative porsche, likely colonization from chronic indwelling suprapubic catheter. H and H 8 and 24, and platelet count 140. MCV is 93. Discharge BUN and creatinine is 28 and 1.5. Troponin I was 0.03 and albumin was 2.8. DISCHARGE MEDICATIONS: Norvasc 10 mg daily, aspirin 81 mg daily, Coreg 25 mg twice daily, Colace 100 mg daily, ferrous sulfate 325 mg daily, finasteride 1 tab daily, gabapentin 300 mg p.o. daily, levothyroxine 88 mcg p.o. daily, melatonin 3 mg p.o. at bedtime, omeprazole 20 mg daily, MiraLax 17 grams daily, Januvia 50 mg daily, sulfasalazine 1000 mg p.o. twice daily, and Ultram p.r.n. for pain. ALLERGIES: AMOXICILLIN and CODEINE. DISCHARGE PLAN: Patient to follow up with primary care physician at the [facility] in 1-2 weeks. BRIEF COURSE DURING HOSPITALIZATION: Patient initially got admitted for acute respiratory failure with hypoxia secondary to aspiration episode. Patient had saturations dropping into the 84% at the [facility] and was placed on 2 liters nasal cannula and brought here. Patient has known history of dysphagia and is on a thickened liquid diet at the [facility]. He has had prior hospitalization with intubation done here before for aspiration pneumonitis. He was placed on steroids for possible chemical pneumonitis, nebulizers and nasal oxygen. Patient was not placed on any antibiotics. He has responded well to above measures. His room air saturations are more than 95% this morning. He is hemodynamically stable. He is at his baseline cognitive status. I have discussed his workup and the current plan with his son, Mr. Alberto. If patient's functional status improves he may benefit from orthopedic surgery outpt consultation for right femur. A total of 35 minutes was spent on discharge plan. Please see a [id number] documentation on [facility] for the day of discharge. Please note patient is at risk for aspiration in view of his chronic dysphagia. CODE STATUS: DNR, which was discussed with Gabino Remy, patient's son. ODILON
--- NOTE | 2017-06-30 15:02 | EKG ---
Test Reason : SOB Blood Pressure : / mmHG Vent. Rate : 077 BPM Atrial Rate : 077 BPM P-R Int : 278 ms QRS Dur : 098 ms QT Int : 394 ms P-R-T Axes : 051 -18 032 degrees QTc Int : 445 ms Sinus rhythm with 1st degree A-V block with Premature atrial complexes with Abberant conduction Moderate voltage criteria for LVH, may be normal variant Borderline ECG Confirmed by JAN FLANAGAN ([id number]), publishing editor MIGUEL ANGEL PUGH ([id number] on 06/30/2017 3:00:32 PM Referred By: Confirmed By:JAN FLANAGAN
== END 2017-06-29 12:11 | DRG 177 ==
LOC: ERS 06:44 → 2NO 09:30 → OBSVTOIN 09:33 → T4-B 18:56
PROVIDERS: ADMIT Internal Medicine; ATTEND Internal Medicine
DX: E03.9 Hypothyroidism, unspecified; M19.90 Unspecified osteoarthritis, unspecified site; J69.0 Pneumonitis due to inhalation of food and vomit; Z66 Do not resuscitate; N17.9 Acute kidney failure, unspecified; I12.9 Hypertensive chronic kidney disease with stage 1 through stage 4 chronic kidney disease, or unspecified chronic kidney disease; Z74.01 Bed confinement status; K21.9 Gastro-esophageal reflux disease without esophagitis; D64.9 Anemia, unspecified; N18.3 Chronic kidney disease, stage 3 (moderate); Z87.01 Personal history of pneumonia (recurrent); E11.22 Type 2 diabetes mellitus with diabetic chronic kidney disease; J96.01 Acute respiratory failure with hypoxia
CPT/HCPCS: 36415; 36416; 71045; 72170; 80048; 80053; 81003; 81015; 82553; 83880; 84484; 85025; 87040; 87077; 87086; 87149; 87186; 93005; 94640; 96360; G8996-GN-CK; G8997-GN-CJ; J1650; J1940; J2920; J7620

== ENCOUNTER 2017-11-14 19:11 | Inpatient (IN) | payer MEDICARE, MEDICAID ==
[2017-11-14 20:11] LABS: #Eosinphils 0.1 thou/uL (0.0-0.7); #Lymphocytes 1.1 thou/uL (1.20-3.40); #Monocytes 0.5 thou/uL (0.11-0.59); #Neutrophils 4.4 thou/uL (1.40-6.50); %Basophils 0.4 % (0.0-1.0); %Eosinophils 0.9 % (0.0-10.0); %Lymphocytes 18.1 % (21.0-51.0); %Monocytes 8.6 % (0.0-10.0); Hemoglobin 7.6 g/dL (14.0-18.0); Mean Corpuscular HGB CONC 33.3 g/dL (32.0-36.0); Mean Corpuscular Hemoglobin 34.4 pg (27.0-31.0); Mean Platelet Volume 6.6 fL (7.4-10.4); Platelet Count 151 thou/uL (130-400); RBC Distribution Width 15.6 % (11.5-14.5); White Blood Cell (WBC) Count 6.1 thou/uL (4.8-10.8)
[2017-11-14 20:31] LABS: ALT (SGPT) 10 U/L (8-55); AST (SGOT) 9 U/L (5-34); Albumin 2.7 g/dL (3.4-4.8); Alkaline Phosphatase 44 U/L (40-150); Anion Gap 11 mmol/L (10-20); BUN (Urea Nitrogen) 54 mg/dL (8.4-25.7); Bilirubin, Total 0.3 mg/dL (0.2-1.2); Calc. Creatinine Clearance 0 mL/min (70-130); Calcium 8.4 mg/dL (7.8-10.44); Carbon Dioxide 29 mmol/L (23-31); Chloride 106 mmol/L (98-107); Estimated GFR-MDRD 27; Globulin 2.2 g/dL (2.4-3.5); Glucose 166 mg/dL (83-110); Potassium 5.5 mmol/L (3.5-5.1); Protein, Total 4.9 g/dL (5.8-8.1); Sodium 140 mmol/L (136-145)
[2017-11-14 20:36] LABS: Bilirubin Negative (Negative); Blood, Urine Moderate (Negative); Clarity TURBID (Clear); Glucose, Urine (Dipstick) Negative (Negative); Leukocyte Large (Negative); Nitrite Negative (Negative); Protein, Urine (Dipstick) 300 mg/dL (Neg-Trace); Specific Gravity, Urine 1.015 (1.002-1.036); Urobilinogen 0.2 mg/dL (0.2-1.0)
[2017-11-14 20:37] LABS: CKMB 1.6 ng/mL (0-6.6); Troponin I 0.088 ng/mL (< 0.028)
[2017-11-14 20:37] LABS: Bacteria/HPF 4+ HPF (None Seen); Hyaline Casts/LPF 4-6 HYALINE CAST LPF (0-3 Hyaline); Pathc Cast-AUWi Flag 1.14 (0-2.49); Yeast-AUWi Flag 24.7 (0-25.0)
[2017-11-14] MEDS ORDERED: Furosemide 40 MG/4 ML VIAL ONE (20:49)
--- NOTE | 2017-11-14 21:11 | RAD ---
ONE VIEW CHEST: HISTORY: Edema. COMPARISON: 06/29/2017 FINDINGS: Slight elongation of the aorta. Normal cardiac silhouette. The pulmonary vessels and hilum are norm al. The costophrenic angles are clear. No consolidation or mass. No pneumothorax or osseous abnorm alities. IMPRESSION: No acute cardiopulmonary process. POS: PPP
--- NOTE | 2017-11-14 22:14 | ULT ---
BILATERAL LOWER EXTREMITY VENOUS ULTRASOUND WITH DOPPLER: HISTORY: Bilateral lower extremity swelling and edema. COMPARISON: 03/23/2017 TECHNIQUE: Resendez-scale, color-flow, and Doppler imaging with spectral wave-form analysis was performed of the lef t and right lower extremity venous system. FINDINGS: Bilaterally, there is compressibility, presence of flow, and augmentation in the common femoral vein, femoral vein, and popliteal vein. There is flow in the bilateral greater saphenous veins, profunda veins, and posterior tibial veins. There is bilateral lower extremity edema. IMPRESSION: 1. No evidence of thrombus in the left or right lower extremity deep venous system. 2. Bilateral lower extremity edema. POS: PPP
[2017-11-14 23:50] LABS: Troponin I 0.087 ng/mL (< 0.028)
--- NOTE | 2017-11-15 00:11 | PDOC.FPRHP ---
- History of Present Illness Chief Complaint: swelling History of Present Illness: Mr. Montelongo is a 77YO gentleman with a PMH significant for HTN, DM, and chronic anemia who presented to the ED with a chief complaint of progressively worsening swelling over the last 10 days. Per the patient, a little over one week ago he first started to notice some swelling in his feet and legs that has since progressed all the way up into his testes. He denies any pain in his testes but does say that his legs are tender to palpation. He denies any associated SOB, chest pain, abdominal pain, fever, or chills. He reports never having had swelling like this before. Of note, he is wheelchair bound and has been a alf resident for the last 4 months. ED Course: Patient was given 40mg IV lasix. - Allergies/Adverse Reactions Allergies Allergy/AdvReac Type Severity Reaction Status Date / Time amoxicillin Allergy per doctor Verified 03/20/17 03:40 history codeine AdvReac Intermediate Nausea Verified 03/20/17 03:40 - Home Medications Medication Instructions Recorded Confirmed Type Amlodipine [Norvasc] 10 mg PO DAILY 03/20/17 11/15/17 History Aspirin [Aspirin EC] 81 mg PO DAILY 03/20/17 11/15/17 History Carvedilol 25 mg PO BID 03/20/17 11/15/17 History Docusate Sodium 100 mg PO DAILY 03/20/17 11/15/17 History Finasteride 5 mg PO DAILY 03/20/17 11/15/17 History Levothyroxine Sodium 88 mcg PO DAILY 03/20/17 11/15/17 History Ondansetron HCl [Zofran] 4 mg PO Q6HR PRN 03/20/17 11/15/17 History sulfaSALAzine 1,000 mg PO BID 03/20/17 11/15/17 History traMADol HCl [Tramadol HCl] 1 tab PO Q6HR PRN 03/20/17 11/15/17 History Glucagon 1 mg SC ONE PRN 06/27/17 11/15/17 History Pantoprazole [Protonix] 40 mg PO BID 06/27/17 11/15/17 History Polyethylene Glycol 3350 [Miralax] 17 gm PO DAILY 06/27/17 11/15/17 History Acetaminophen 650 mg PO Q4H PRN 11/15/17 11/15/17 History Ergocalciferol (Vitamin D2) 50,000 unit PO Q7D 11/15/17 11/15/17 History [Vitamin D2] Ferrous Sulfate [Iron] 325 mg PO DAILY 11/15/17 11/15/17 History Fluticasone Propionate [Flonase 2 spray EA NARE DAILY 11/15/17 11/15/17 History Allergy Relief] Furosemide 20 mg PO HS 11/15/17 11/15/17 History Gabapentin [Neurontin] 300 mg PO BID 11/15/17 11/15/17 History Losartan [Cozaar] 25 mg PO DAILY 11/15/17 11/15/17 History Magnesium Hydroxide [Milk Of 30 ml PO DAILY PRN 11/15/17 11/15/17 History Magnesium] Multivitamin With Minerals 1 tablet PO DAILY 11/15/17 11/15/17 History [Multiple Vitamin] Potassium Chloride 10 meq PO HS 11/15/17 11/15/17 History Sertraline HCl 25 mg PO HS 11/15/17 11/15/17 History Zinc Oxide [Zinc Oxide Ointment] 1 applic TOP TID 11/15/17 11/15/17 History glipiZIDE [Glipizide] 5 mg PO DAILY 11/15/17 11/15/17 History guaiFENesin/Dextromethorphan 10 ml PO Q6H PRN 11/15/17 11/15/17 History [Robitussin DM] predniSONE [Prednisone] 7.5 mg PO BID 11/15/17 11/15/17 History sitaGLIPtin Phosphate [Januvia] 25 mg PO DAILY 11/15/17 11/15/17 History - History PMHx: chronic anemia, HTN, ankylosing spondylitis, uropathy, DM, GERD, OA PSHx: B/L hip and knee replacements. FHx: None. Social: smoked for 10 years but quit in 1969. Drinks socially. No drug use. Lives at [facility] in [place]. - Review of Systems General: denies: fever/chills, weight/appetite/sleep changes Eyes: denies: vision changes ENT: denies: rhinorrhea Respiratory: denies: congestion, shortness of breath Cardiovascular: reports: edema. denies: chest pain Gastrointestinal: denies: nausea, vomiting, diarrhea, constipation, abdominal pain Genitourinary: reports: other (Patient has a suprapubic catheter in place) Skin: denies: rashes, lesions Musculoskeletal: reports: tenderness (+ in shins to palpation), arthritis/ arthralgias Neurological: denies: numbness, syncope, weakness - Vital signs BP: 155/72 HR: 78 RR: 16 Tmax: 98.3F Pox: 96% on RA Wt: 87kg - Physical Exam Constitutional: NAD, awake, alert and oriented, well developed HEENT: normocephalic and atraumatic, PERRLA, conjunctiva clear, grossly normal vision, grossly normal hearing, oropharynx clear Neck: FROM Heart: RRR, normal S1/S2, other (2+ pitting edema throughout entire B/L LEs. Pulses difficult to detect 2/2 edema.) FMR H&P: Results - Labs Result Diagrams: 11/15/17 01:52 11/15/17 01:52 Lab results: WBC 6.1 thou/uL (4.8-10.8) 11/14/17 19:47 Hgb 7.6 g/dL (14.0-18.0) L 11/14/17 19:47 Hct 22.8 % (42.0-52.0) L 11/14/17 19:47 MCV 103.0 fL (78.0-98.0) H 11/14/17 19:47 Plt Count 151 thou/uL (130-400) 11/14/17 19:47 Neutrophils % 72.0 % (42.0-75.0) 11/14/17 19:47 Sodium 140 mmol/L (136-145) 11/14/17 19:47 Potassium 5.5 mmol/L (3.5-5.1) H 11/14/17 19:47 Chloride 106 mmol/L (98-107) 11/14/17 19:47 Carbon Dioxide 29 mmol/L (23-31) 11/14/17 19:47 BUN 54 mg/dL (8.4-25.7) H 11/14/17 19:47 Creatinine 2.32 mg/dL (0.6-1.3) H 11/14/17 19:47 Glucose 166 mg/dL (83-110) H 11/14/17 19:47 Calcium 8.4 mg/dL (7.8-10.44) 11/14/17 19:47 Total Bilirubin 0.3 mg/dL (0.2-1.2) 11/14/17 19:47 AST 9 U/L (5-34) 11/14/17 19:47 ALT 10 U/L (8-55) 11/14/17 19:47 Alkaline Phosphatase 44 U/L (40-150) 11/14/17 19:47 CK-MB (CK-2) 1.6 ng/mL (0-6.6) 11/14/17 19:47 B-Natriuretic Peptide 188.4 pg/mL (0-100) H 11/14/17 19:47 Serum Total Protein 4.9 g/dL (5.8-8.1) L 11/14/17 19:47 Albumin 2.7 g/dL (3.4-4.8) L 11/14/17 19:47 Urine Ketones Negative mg/dL (Negative) 11/14/17 19:25 Urine Blood Moderate (Negative) H 11/14/17 19:25 Urine Nitrite Negative (Negative) 11/14/17 19:25 Ur Leukocyte Esterase Large (Negative) H 11/14/17 19:25 Urine RBC 11-20 HPF (0-3) H 11/14/17 19:25 Urine WBC Greater Than 50-TNTC HPF (0-3) H 11/14/17 19:25 Ur Squamous Epith Cells 4-6 HPF (0-3) H 11/14/17 19:25 Urine Bacteria 4+ HPF (None Seen) H 11/14/17 19:25 - EKG Interpretation EKG: ECG: No ischemia. - Radiology Interpretation Chest x-ray Status: report reviewed by me (No acute process) FMR H&P: A/P - Problem List (1) Anasarca Current Visit: Yes Status: Acute Code(s): R60.1 - GENERALIZED EDEMA (2) YOLETTE (acute kidney injury) Current Visit: Yes Status: Acute Code(s): N17.9 - ACUTE KIDNEY FAILURE, UNSPECIFIED (3) HTN (hypertension) Current Visit: Yes Status: Chronic Code(s): I10 - ESSENTIAL (PRIMARY) HYPERTENSION Qualifiers: Hypertension type: essential hypertension Qualified Code(s): I10 - Essential (primary) hypertension (4) Chronic anemia Current Visit: Yes Status: Chronic Code(s): D64.9 - ANEMIA, UNSPECIFIED (5) DM type 2 (diabetes mellitus, type 2) Current Visit: Yes Status: Chronic Qualifiers: Diabetes mellitus residential insulin use: without residential use Diabetes mellitus complication status: with unspecified complications Qualified Code(s) : E11.8 - Type 2 diabetes mellitus with unspecified complications (6) Hypothyroidism Current Visit: Yes Status: Chronic Code(s): E03.9 - HYPOTHYROIDISM, UNSPECIFIED Qualifiers: Hypothyroidism type: unspecified Qualified Code(s): E03.9 - Hypothyroidism , unspecified (7) UTI (urinary tract infection) Current Visit: Yes Status: Acute Qualifiers: Urinary tract infection type: catheter-associated UTI Indwelling urinary catheter type: unspecified - Plan 77YO gentleman w/ a PMH significant for DM, HTN, and hypothyroidism who presented to the ED with a chief complaint of progressively worsening swelling that has been ongoing for the last 10 days. 1. Anasarca: - Uknown etiology at this point. Could be 2/2 nephrotic syndrome vs. new onset CHF vs. poorly controlled hypothyroidism. - Will order renal U/S and urine urea to assess renal etiology. Will order an echo and get strict Is&Os & QD weights for potential CHF etiology. Will order TSH to assess thyroid function. - Will continue with lasix 40mg IV BID for diuresis. Will closely monitor renal function during this. 2. YOLETTE: - BUN/Cr elvated at 54/2.32 on admission. - Will continue to monitor with QD CMPs. 3. UTI: - significant for 4+ bacteria, blood, WBCs, large leukocyte esterase. - Started on IV Rocephin. - Cx pending. 4. Chronic anemia: - H/H 7.6/22.8 on presentation. - Could be 2/2 anemia of chronic disease vs. GI bleed vs. vitamin deficiency. - Ordered B12 & folate as well as FOBT. - Will continue to follow with QD CBCs. 5. DM: - Aware. - BG 166 on admission. - Will resume home meds. 6. hypothyroidism: - checking TSH - Will resume home meds. 7. HTN: - Aware, will resume home meds. 8. GERD: - Aware, will resume home meds. 9. ankylosing spondylitis: - Aware, will resume home meds. FMR H&P: Upper Level - Pertinent history Mr. Montelongo is a 77YO gentleman with a PMH significant for HTN, DM, and chronic anemia who presented to the ED with a chief complaint of progressively worsening swelling over the last 10 days. The swelling extends up to his testicles. He denies any past history of heart disease or liver disease. He denies any chest pain or dyspnea. Of note, patient has an indwelling catheter related to some history of uropathy for which patient cannot give exact details. he is a patient of Dr. Jett outpatient. He has a history of chronic anemia for which he sees Dr. Alexander for routine EPO injections. - Pertinent findings Physical Exam: General: alert and oriented x 3. In no distress. Heart: regular rate and rhythm. No murmurs rubs, or gallops. Lungs: clear to auscultation bilaterally. No crackles, rales, or rhonchi. Abdomen: Mild fluid distension noted. Extremities: 2+ pitting edema extending up bilateral lower extremities. There is an approximately 2 inch superficial ulceration on the right anterior laughlin. Hgb: 7.6 Hct: 22.8 Na: 140 K: 5.5 BUN: 54 Cr: 2.32 Trop: 0.088 Total protein: 4.9 Albumin: 2.7 UA: purulent urine; findings consistent with infection. - Plan Date/Time: 11/15/17 0010 Elvia Amaro, have evaluated this patient and agree with findings/plan as outlined by director international resident. Pertinent changes/additions are listed here. Bilateral lower extremity edema - uncertain etiology. - Differentials include: Decompensated heart failure, liver disease, nephrotic syndrome. - Workup to include: Echo, Lipid panel, Coags. Consider 24 hour urine protein - Strict I/Os, daily weights, IV diuresis. - Bilateral LE venous dopplers negative Indeterminate trop - pt denies chest pain currently - EKG showed no acute evidence of ischemia. - Will continue to trend. Acute kidney injury on CKD - Cr. up from 1.57 in June 2017. - Will calculate FeUrea to help determine etiology. - Will also obtain renal ultrasound Urinary tract infection - Will Treat with Rocephin. - Urine culture pending. - May consider discussing with Urology changing catheter during hospitalization. Chronic anemia - Hgb today down from baseline. Pt denies symptoms consistent with active GI bleed - Will attempt to get records from Dr. Alexander regarding history of anemia. - Macrocytosis: will get B12 and folate. Hypothyroidism - resume home medications Ankylosing Spondylitis - resume home medications.
[2017-11-15] MEDS ORDERED: Acetaminophen 325 MG TAB PO PRN (00:45)
[2017-11-15] MEDS ORDERED: Dextrose 5 %-0.45 % NaCl 1,000 ML IV SCH (01:15)
[2017-11-15] MEDS: cefTRIAXone\\ROCEPHIN 1 GM in Sodium Chloride 0.9% 100 ML IVPB SCH (01:19)
[2017-11-15 02:03] LABS: #Eosinphils 0.1 thou/uL (0.0-0.7); #Lymphocytes 1.3 thou/uL (1.20-3.40); #Monocytes 0.5 thou/uL (0.11-0.59); #Neutrophils 3.6 thou/uL (1.40-6.50); %Basophils 0.6 % (0.0-1.0); %Eosinophils 1.4 % (0.0-10.0); %Lymphocytes 23.6 % (21.0-51.0); %Monocytes 9.7 % (0.0-10.0); %Neutrophils 64.7 % (42.0-75.0); Hemoglobin 7.1 g/dL (14.0-18.0); Mean Corpuscular Hemoglobin 35.2 pg (27.0-31.0); Mean Platelet Volume 6.4 fL (7.4-10.4); Platelet Count 135 thou/uL (130-400); RBC Distribution Width 15.7 % (11.5-14.5); Red Blood Cell (RBC) Count 2.02 mill/uL (4.70-6.10); White Blood Cell (WBC) Count 5.5 thou/uL (4.8-10.8)
[2017-11-15 02:12] LABS: INR-International Normal Ratio 1.1; Prothrombin Time 14.3 SEC (12.0-14.7)
[2017-11-15 02:13] LABS: PTT 27.6 SEC (22.9-36.1)
[2017-11-15 02:28] LABS: Troponin I 0.086 ng/mL (< 0.028)
[2017-11-15 02:33] LABS: ALT (SGPT) 8 U/L (8-55); AST (SGOT) 8 U/L (5-34); Albumin 2.5 g/dL (3.4-4.8); Alkaline Phosphatase 39 U/L (40-150); Anion Gap 11 mmol/L (10-20); BUN (Urea Nitrogen) 55 mg/dL (8.4-25.7); Bilirubin, Total 0.3 mg/dL (0.2-1.2); Calc. Creatinine Clearance 0 mL/min (70-130); Calcium 8.6 mg/dL (7.8-10.44); Carbon Dioxide 29 mmol/L (23-31); Cardiac Risk 8.1 (Less than 4.5); Chloride 106 mmol/L (98-107); Cholesterol 298 mg/dl (< 200 Desired); Estimated GFR-MDRD 28; Glucose 110 mg/dL (83-110); HDL Cholesterol 37 mg/dL (>60 Neg Risk); LDL Cholesterol, Calculated 198 mg/dL; Potassium 5.1 mmol/L (3.5-5.1); Protein, Total 4.5 g/dL (5.8-8.1); Sodium 141 mmol/L (136-145); Triglycerides 314 mg/dL (Less than 150)
[2017-11-15] MEDS ORDERED: Milk Of Magnesia 30 ML UDCUP PO PRN (04:52)
[2017-11-15] MEDS ORDERED: Ondansetron ODT 4 MG TAB PO PRN (04:52)
[2017-11-15] MEDS ORDERED: guaiFENesin/Dextromethorphan 10 ML UDCUP PO PRN (04:52)
[2017-11-15] MEDS ORDERED: traMADol HCl 50 MG TAB PO PRN (04:52)
[2017-11-15] MEDS: Furosemide 40 MG/4 ML VIAL SLOW IVP SCH ×2 (05:35→13:46)
[2017-11-15 05:49] LABS: Folate (Folic Acid) 5.2 ng/mL (7.0-31.4)
[2017-11-15] MEDS: Levothyroxine Sodium 88 MCG TAB PO SCH ×2 (06:07→09:53)
[2017-11-15 07:47] LABS: Creatinine, Urine 21.03 mg/dL (63-166)
--- NOTE | 2017-11-15 08:40 | PDOC.EVN ---
Event Note - Event Note Event Note: Patient is is under the care of Dr. Akbar at [facility]. We will be transitioning care to [facility]. Discussed patient's case with Dr. Garcia.
[2017-11-15] MEDS ORDERED: Ergocalciferol 1.25 MG(50,000 UNITS) CAP PO SCH (09:00)
--- NOTE | 2017-11-15 09:11 | ULT ---
RENAL ULTRASOUND: COMPARISON: None. HISTORY: Acute kidney injury. TECHNIQUE: Multiplanar, zapata scale, and color Doppler images were obtained in a renal ultrasound. FINDINGS: There are anechoic cysts in both kidneys. The largest is seen on the left measuring 4.8 cm. There i s no evidence of hydronephrosis or shadowing calculi. The kidneys measure 10.5 and 10.1 cm in length on the right and left, respectively. A Oshea catheter decompresses the urinary bladder. IMPRESSION: Bilateral renal cysts. POS: PAOLO
[2017-11-15] MEDS: Enoxaparin Sodium 30 MG/0.3 ML SYRINGE SC SCH (09:51)
[2017-11-15] MEDS: Polyethylene Glycol 3350 17 GM Packet PO SCH ×2 (09:51→10:01)
[2017-11-15] MEDS: Fluticasone Propionate Nasal Spray 16 gm Bottle NASAL SCH (09:52)
[2017-11-15] MEDS: Ferrous Sulfate 325 MG TAB PO SCH (09:53)
[2017-11-15] MEDS: glipiZIDE 5 MG TAB PO SCH (09:53)
[2017-11-15] MEDS: Alogliptin 6.25 MG TAB PO SCH (09:53)
[2017-11-15] MEDS: Losartan 25 MG TAB PO SCH (09:53)
[2017-11-15] MEDS: Multivitamin W/ Minerals 1 TAB PO SCH (09:53)
[2017-11-15] MEDS: Aspirin 81 mg Enteric Coated Tablet PO SCH (09:53)
[2017-11-15] MEDS: sulfaSALAzine 500 MG TAB PO SCH ×2 (09:54→20:51)
[2017-11-15] MEDS: Docusate 100 MG CAP PO SCH (09:54)
[2017-11-15] MEDS: Finasteride 5 MG TAB PO SCH (09:54)
[2017-11-15] MEDS: Carvedilol 25 MG TAB PO SCH ×2 (09:54→20:52)
[2017-11-15] MEDS: Gabapentin 300 MG CAP PO SCH ×2 (09:54→20:51)
[2017-11-15] MEDS: Amlodipine 10 MG TAB PO SCH (09:54)
[2017-11-15] MEDS: Zinc Oxide 20% Oint 30 GM TUBE TOP SCH ×3 (09:55→20:52)
[2017-11-15] MEDS: Potassium Chloride 10 MEQ TAB PO SCH (20:50)
[2017-11-15] MEDS ORDERED: Dextrose 5% in Water 1,000 ML IV PRN (21:41)
[2017-11-15] MEDS ORDERED: Dextrose 50% Abboject 50 ML SYRINGE SLOW IVP PRN (21:41)
[2017-11-15] MEDS ORDERED: HumaLOG 300 UNITS/3 ML VIAL SC PRN ×2 (21:41)
[2017-11-16] MEDS: cefTRIAXone\\ROCEPHIN 1 GM in Sodium Chloride 0.9% 100 ML IVPB SCH (00:25)
[2017-11-16 05:28] LABS: #Basophils 0.1 thou/uL (0.0-0.2); #Eosinphils 0.1 thou/uL (0.0-0.7); #Lymphocytes 1.4 thou/uL (1.20-3.40); #Monocytes 0.8 thou/uL (0.11-0.59); #Neutrophils 4.1 thou/uL (1.40-6.50); %Basophils 0.9 % (0.0-1.0); %Eosinophils 1.4 % (0.0-10.0); %Lymphocytes 21.4 % (21.0-51.0); %Monocytes 11.9 % (0.0-10.0); %Neutrophils 64.4 % (42.0-75.0); Hemoglobin 8.5 g/dL (14.0-18.0); Mean Corpuscular HGB CONC 33.6 g/dL (32.0-36.0); Mean Corpuscular Hemoglobin 34.8 pg (27.0-31.0); Mean Platelet Volume 6.8 fL (7.4-10.4); Platelet Count 149 thou/uL (130-400); RBC Distribution Width 15.8 % (11.5-14.5); Red Blood Cell (RBC) Count 2.43 mill/uL (4.70-6.10); White Blood Cell (WBC) Count 6.3 thou/uL (4.8-10.8)
[2017-11-16 05:42] LABS: ALT (SGPT) 10 U/L (8-55); AST (SGOT) 17 U/L (5-34); Albumin 2.5 g/dL (3.4-4.8); Alkaline Phosphatase 43 U/L (40-150); Anion Gap 15 mmol/L (10-20); BUN (Urea Nitrogen) 49 mg/dL (8.4-25.7); Bilirubin, Total 0.3 mg/dL (0.2-1.2); Calc. Creatinine Clearance 35 mL/min (70-130); Calcium 8.9 mg/dL (7.8-10.44); Carbon Dioxide 24 mmol/L (23-31); Chloride 103 mmol/L (98-107); Estimated GFR-MDRD 31; Globulin 2.5 g/dL (2.4-3.5); Glucose 88 mg/dL (83-110); Sodium 137 mmol/L (136-145)
[2017-11-16] MEDS: Furosemide 40 MG/4 ML VIAL SLOW IVP SCH ×2 (06:03→14:40)
[2017-11-16] MEDS: Levothyroxine Sodium 88 MCG TAB PO SCH (06:03)
[2017-11-16] MEDS: Fluticasone Propionate Nasal Spray 16 gm Bottle NASAL SCH (08:12)
[2017-11-16] MEDS: Enoxaparin Sodium 30 MG/0.3 ML SYRINGE SC SCH (08:12)
[2017-11-16] MEDS: Docusate 100 MG CAP PO SCH (08:13)
[2017-11-16] MEDS: Finasteride 5 MG TAB PO SCH (08:13)
[2017-11-16] MEDS: Aspirin 81 mg Enteric Coated Tablet PO SCH (08:13)
[2017-11-16] MEDS: Carvedilol 25 MG TAB PO SCH ×2 (08:13→21:42)
[2017-11-16] MEDS: Ferrous Sulfate 325 MG TAB PO SCH (08:13)
[2017-11-16] MEDS: Losartan 25 MG TAB PO SCH (08:13)
[2017-11-16] MEDS: Alogliptin 6.25 MG TAB PO SCH (08:13)
[2017-11-16] MEDS: glipiZIDE 5 MG TAB PO SCH (08:13)
[2017-11-16] MEDS: predniSONE 5 MG TAB PO SCH ×2 (08:14→16:44)
[2017-11-16] MEDS: sulfaSALAzine 500 MG TAB PO SCH ×2 (08:14→21:42)
[2017-11-16] MEDS: Amlodipine 10 MG TAB PO SCH (08:14)
[2017-11-16] MEDS: Zinc Oxide 20% Oint 30 GM TUBE TOP SCH ×3 (08:15→21:43)
[2017-11-16] MEDS: Multivitamin W/ Minerals 1 TAB PO SCH (08:15)
[2017-11-16] MEDS: Polyethylene Glycol 3350 17 GM Packet PO SCH (08:30)
[2017-11-16] MEDS: Gabapentin 300 MG CAP PO SCH ×2 (11:48→21:41)
--- NOTE | 2017-11-16 13:54 | PDOC.PN ---
- Subjective Encounter Start Date: 11/16/17 Encounter Start Time: 13:35 Subjective: f/u for bilat LE edema, YOLETTE/CKD and suspected UTI. Receiving Rocephin -: currently. Still feeling sleepy and weak. No CP, SOB. No fever. - Objective Resuscitation Status: Resuscitation Status FULL:Full Resuscitation MAR Reviewed: Yes Vital Signs & Weight: Vital Signs (12 hours) Temp Pulse Resp BP Pulse Ox 11/16/17 11:44 98.8 F 95 17 136/63 96 11/16/17 08:14 106 H 11/16/17 08:02 99.4 F 106 H 15 167/71 H 95 11/16/17 04:00 98.6 F 89 20 138/61 94 L Weight Admit Weight 188 lb 7.924 oz Weight 187 lb 6.287 oz I&O: 11/15/17 11/16/17 11/17/17 06:59 06:59 06:59 Intake Total 200 Output Total 525 2250 Balance -325 -2250 Result Diagrams: 11/16/17 05:08 11/16/17 05:08 Additional Labs: Accuchecks 11/16/17 11/16/17 10:53 05:28 POC Glucose 89 95 Microbiology 11/15/17 21:22 Stool Stool Occult Blood (BUDDY) - Final 11/14/17 19:25 Urine crane catheter Urine Culture - Preliminary Laboratory Tests 06/29/17 11/14/17 11/14/17 03:55 19:47 19:47 Potassium 5.5 H BUN Creatinine Troponin I 0.088 H B-Natriuretic Peptide 473.2 H Vitamin B12 Folate TSH 3rd Generation 11/14/17 11/14/17 11/15/17 19:47 23:19 01:52 Potassium BUN Creatinine Troponin I 0.087 H 0.086 H B-Natriuretic Peptide 188.4 H Vitamin B12 Folate TSH 3rd Generation 11/15/17 11/15/17 11/15/17 01:52 01:52 01:52 Potassium BUN 55 H Creatinine 2.26 H Troponin I B-Natriuretic Peptide Vitamin B12 195 L Folate 5.20 L TSH 3rd Generation 2.7126 Radiology Reviewed by me: Yes (2D echo - EF 40-45%) EKG Reviewed by me: Yes (Tele - SR) Phys Exam - Physical Examination sleepy, opens eyes to name, answers questions HEENT: PERRLA, sclera anicteric, oral pharynx no lesions Neck: no nodes, no JVD, supple, full ROM diminished in bases posteriorly Respiratory: no wheezing, no rales, no rhonchi S1, S2 Cardiovascular: RRR, no significant murmur, no rub, gallop SPT in place Gastrointestinal: soft, non-tender, no distention, positive bowel sounds edema to mid thighs Musculoskeletal: pulses present, edema present Neurological: normal sensation, moves all 4 limbs A x O x 2 Skin: normal turgor, cap refill <2 seconds Dx/Plan (1) YOLETTE (acute kidney injury) Code(s): N17.9 - ACUTE KIDNEY FAILURE, UNSPECIFIED Status: Acute Comment: Likely multifactorial, continue diuresis with close monitoring of renal function , repeat creatinine in am, avoid nephrotoxic meds and limit contrast exposure (2) UTI (urinary tract infection) Status: Acute Qualifiers: Urinary tract infection type: catheter-associated UTI Indwelling urinary catheter type: unspecified Comment: Suspected given suprapubic catheter, continue Rocephin, await final Ucx (3) Chronic anemia Code(s): D64.9 - ANEMIA, UNSPECIFIED Status: Chronic Comment: Serial monitoring, macrocytic component, start Vit B12 and Folate, serial H/H, consider GI evaluation if trending downward (4) DM type 2 (diabetes mellitus, type 2) Status: Chronic Qualifiers: Diabetes mellitus longterm insulin use: without longterm use Diabetes mellitus complication status: with unspecified complications Qualified Code(s) : E11.8 - Type 2 diabetes mellitus with unspecified complications Comment: ISS, Glipizide, serial accuchecks, ADA (5) HTN (hypertension) Code(s): I10 - ESSENTIAL (PRIMARY) HYPERTENSION Status: Chronic Qualifiers: Hypertension type: essential hypertension Qualified Code(s): I10 - Essential (primary) hypertension Comment: Improved, continue current BP regimen, serial monitoring (6) Hypothyroidism Code(s): E03.9 - HYPOTHYROIDISM, UNSPECIFIED Status: Chronic Qualifiers: Hypothyroidism type: unspecified Qualified Code(s): E03.9 - Hypothyroidism , unspecified Comment: Stable, continue Levothyroxine (7) CKD (chronic kidney disease) stage 3, GFR 30-59 ml/min Code(s): N18.3 - CHRONIC KIDNEY DISEASE, STAGE 3 (MODERATE) Status: Chronic Comment: Avoid nephrotoxic meds and limit contrast exposure - Plan continue antibiotics, PT/OT, social worker psychiatric Stable overall -: Continue Lasix 40mg IV BID -: Start Vit B12 1000mcg daily -: Folate 1mg po daily -: AM lab: BMP, CBC * .
[2017-11-16] MEDS ORDERED: Cyanocobalamin (Vitamin B-12) 1,000 MCG TAB PO SCH ×2 (14:00)
[2017-11-16] MEDS ORDERED: Folic Acid 1 MG TAB PO SCH ×2 (14:00)
[2017-11-16] MEDS: Potassium Chloride 10 MEQ TAB PO SCH (21:42)
[2017-11-17] MEDS: cefTRIAXone\\ROCEPHIN 1 GM in Sodium Chloride 0.9% 100 ML IVPB SCH (00:21)
[2017-11-17] MEDS: Furosemide 40 MG/4 ML VIAL SLOW IVP SCH ×2 (05:13→15:05)
[2017-11-17] MEDS: Levothyroxine Sodium 88 MCG TAB PO SCH (05:13)
[2017-11-17 06:21] LABS: Anion Gap 12 mmol/L (10-20); BUN (Urea Nitrogen) 52 mg/dL (8.4-25.7); Calc. Creatinine Clearance 31 mL/min (70-130); Calcium 8.4 mg/dL (7.8-10.44); Carbon Dioxide 30 mmol/L (23-31); Chloride 99 mmol/L (98-107); Estimated GFR-MDRD 27; Glucose 105 mg/dL (83-110); Potassium 4.6 mmol/L (3.5-5.1); Sodium 136 mmol/L (136-145)
[2017-11-17 06:26] LABS: Band 4 % (5-11); Hypochromia SLIGHT = 6-15 cells (100X) (0-5/hpf); Lymphocytes 22 % (21-51); MDiff Complete? YES; Mean Corpuscular Hemoglobin 34.7 pg (27.0-31.0); Mean Platelet Volume 6.8 fL (7.4-10.4); Monocytes 4 % (0-10); Neutrophil 70 % (42-75); PLT Morphology Comment Appears Adequate; Platelet Count 131 thou/uL (130-400); RBC Distribution Width 15.3 % (11.5-14.5); Red Blood Cell (RBC) Count 2.01 mill/uL (4.70-6.10); White Blood Cell (WBC) Count 4.1 thou/uL (4.8-10.8)
[2017-11-17] MEDS: Fluticasone Propionate Nasal Spray 16 gm Bottle NASAL SCH (09:02)
[2017-11-17] MEDS: Folic Acid 1 MG TAB PO SCH (09:03)
[2017-11-17] MEDS: glipiZIDE 5 MG TAB PO SCH (09:03)
[2017-11-17] MEDS: Cyanocobalamin (Vitamin B-12) 1,000 MCG TAB PO SCH (09:03)
[2017-11-17] MEDS: Ferrous Sulfate 325 MG TAB PO SCH (09:04)
[2017-11-17] MEDS: Multivitamin W/ Minerals 1 TAB PO SCH (09:04)
[2017-11-17] MEDS: Losartan 25 MG TAB PO SCH (09:04)
[2017-11-17] MEDS: Finasteride 5 MG TAB PO SCH (09:05)
[2017-11-17] MEDS: predniSONE 5 MG TAB PO SCH ×2 (09:05→17:22)
[2017-11-17] MEDS: Amlodipine 10 MG TAB PO SCH (09:06)
[2017-11-17] MEDS: Docusate 100 MG CAP PO SCH (09:06)
[2017-11-17] MEDS: sulfaSALAzine 500 MG TAB PO SCH ×2 (09:06→20:46)
[2017-11-17] MEDS: Aspirin 81 mg Enteric Coated Tablet PO SCH (09:06)
[2017-11-17] MEDS: Gabapentin 300 MG CAP PO SCH ×2 (09:06→20:46)
[2017-11-17] MEDS: Carvedilol 25 MG TAB PO SCH ×2 (09:06→20:46)
[2017-11-17] MEDS: Zinc Oxide 20% Oint 30 GM TUBE TOP SCH ×3 (09:08→20:47)
[2017-11-17] MEDS: Polyethylene Glycol 3350 17 GM Packet PO SCH (09:09)
[2017-11-17] MEDS: Alogliptin 6.25 MG TAB PO SCH (09:26)
[2017-11-17 12:30] VITALS: BMI 30.9
[2017-11-17] MEDS: Enoxaparin Sodium 30 MG/0.3 ML SYRINGE SC SCH (12:51)
--- NOTE | 2017-11-17 13:34 | PDOC.PN ---
- Subjective Encounter Start Date: 11/17/17 Encounter Start Time: 13:20 Subjective: f/u for UTI, YOLETTE and LE edema. Overall feels better, more alert -: and no fever or cough. Weight down 3lbs since admit. - Objective Resuscitation Status: Resuscitation Status FULL:Full Resuscitation MAR Reviewed: Yes Vital Signs & Weight: Vital Signs (12 hours) Temp Pulse Resp BP Pulse Ox 11/17/17 11:28 98.0 F 80 15 128/59 L 97 11/17/17 09:06 84 11/17/17 08:58 98.0 F 80 15 132/61 97 11/17/17 04:00 98.2 F 89 18 134/63 94 L Weight Admit Weight 188 lb 7.924 oz Weight 185 lb 15.369 oz I&O: 11/16/17 11/17/17 11/18/17 06:59 06:59 06:59 Intake Total 1140 Output Total 2250 3225 Balance -2249 -2084 Result Diagrams: 11/17/17 05:45 11/17/17 05:45 Additional Labs: Accuchecks 11/17/17 11/17/17 11/16/17 11:08 05:41 20:57 POC Glucose 135 H 119 H 172 H 11/16/17 17:05 POC Glucose 119 H Microbiology 11/15/17 21:22 Stool Stool Occult Blood (BUDDY) - Final 11/14/17 19:25 Urine crane catheter Urine Culture - Preliminary Laboratory Tests 06/29/17 11/14/17 11/14/17 03:55 19:47 19:47 Hgb Potassium 5.5 H BUN Creatinine Troponin I 0.088 H B-Natriuretic Peptide 473.2 H Vitamin B12 Folate [facility] 3rd Generation 11/14/17 11/14/17 11/15/17 19:47 23:19 01:52 Hgb Potassium BUN Creatinine Troponin I 0.087 H 0.086 H B-Natriuretic Peptide 188.4 H Vitamin B12 Folate TSH 3rd Generation 11/15/17 11/15/17 11/15/17 01:52 01:52 01:52 Hgb Potassium BUN 55 H Creatinine 2.26 H Troponin I B-Natriuretic Peptide Vitamin B12 195 L Folate 5.20 L [facility] 3rd Generation 2.7126 11/16/17 11/16/17 05:08 05:08 Hgb 8.5 L Potassium BUN Creatinine 2.07 H Troponin I B-Natriuretic Peptide Vitamin B12 Folate TSH 3rd Generation Radiology Reviewed by me: Yes (2D echo - EF 40-45%) EKG Reviewed by me: Yes (Tele -) Phys Exam - Physical Examination Constitutional: NAD alert, responsive HEENT: PERRLA, sclera anicteric, oral pharynx no lesions Neck: no nodes, no JVD, supple, full ROM Respiratory: no wheezing, no rales, no rhonchi, clear to auscultation bilateral Cardiovascular: RRR, no significant murmur, no rub, gallop SPT in place Gastrointestinal: soft, non-tender, no distention, positive bowel sounds decreased edema LE's Musculoskeletal: pulses present Psychiatric: normal affect, A&O x 3 Skin: normal turgor, cap refill <2 seconds Dx/Plan (1) YOLETTE (acute kidney injury) Code(s): N17.9 - ACUTE KIDNEY FAILURE, UNSPECIFIED Status: Acute Comment: Likely multifactorial, continue diuresis with close monitoring of renal function , repeat creatinine in am, avoid nephrotoxic meds and limit contrast exposure, consult Nephrology for any further recommendations (2) UTI (urinary tract infection) Status: Acute Qualifiers: Urinary tract infection type: catheter-associated UTI Indwelling urinary catheter type: unspecified Comment: Suspected given suprapubic catheter, continue Rocephin another 24h then d/c (3) Chronic anemia Code(s): D64.9 - ANEMIA, UNSPECIFIED Status: Chronic Comment: Serial monitoring, macrocytic component, start Vit B12 and Folate, serial H/H, consider GI evaluation if trending downward, repeat CBC and stool guaiac (4) DM type 2 (diabetes mellitus, type 2) Status: Chronic Qualifiers: Diabetes mellitus custodial insulin use: without custodial use Diabetes mellitus complication status: with unspecified complications Qualified Code(s) : E11.8 - Type 2 diabetes mellitus with unspecified complications Comment: ISS, Glipizide, serial accuchecks, ADA (5) HTN (hypertension) Code(s): I10 - ESSENTIAL (PRIMARY) HYPERTENSION Status: Chronic Qualifiers: Hypertension type: essential hypertension Qualified Code(s): I10 - Essential (primary) hypertension Comment: Improved, continue current BP regimen, serial monitoring (6) Hypothyroidism Code(s): E03.9 - HYPOTHYROIDISM, UNSPECIFIED Status: Chronic Qualifiers: Hypothyroidism type: unspecified Qualified Code(s): E03.9 - Hypothyroidism , unspecified Comment: Stable, continue Levothyroxine (7) CKD (chronic kidney disease) stage 3, GFR 30-59 ml/min Code(s): N18.3 - CHRONIC KIDNEY DISEASE, STAGE 3 (MODERATE) Status: Chronic Comment: Avoid nephrotoxic meds and limit contrast exposure - Plan continue antibiotics, PT/OT, community mental health social worker Stable overall -: Continue Lasix 40mg IV BID another 24h then convert to po -: Consult Nephrology service -: Repeat stool guaiac -: D/C Lovenox * AM lab: BMP, CBC * Likely d/c in 24-48h
[2017-11-17] MEDS: Potassium Chloride 10 MEQ TAB PO SCH (20:46)
[2017-11-18] MEDS: cefTRIAXone\\ROCEPHIN 1 GM in Sodium Chloride 0.9% 100 ML IVPB SCH (01:38)
[2017-11-18] MEDS: Furosemide 40 MG/4 ML VIAL SLOW IVP SCH ×2 (05:40→15:32)
[2017-11-18] MEDS: Levothyroxine Sodium 88 MCG TAB PO SCH (05:40)
[2017-11-18 05:56] LABS: Anion Gap 15 mmol/L (10-20); BUN (Urea Nitrogen) 53 mg/dL (8.4-25.7); Calc. Creatinine Clearance 27 mL/min (70-130); Calcium 8.5 mg/dL (7.8-10.44); Carbon Dioxide 28 mmol/L (23-31); Chloride 98 mmol/L (98-107); Estimated GFR-MDRD 26; Glucose 169 mg/dL (83-110); Potassium 4.6 mmol/L (3.5-5.1); Sodium 136 mmol/L (136-145)
[2017-11-18 06:13] LABS: Band 9 % (5-11); Hemoglobin 7.2 g/dL (14.0-18.0); Lymphocytes 21 % (21-51); MDiff Complete? YES; Mean Corpuscular HGB CONC 34.5 g/dL (32.0-36.0); Mean Corpuscular Hemoglobin 34.7 pg (27.0-31.0); Monocytes 2 % (0-10); Neutrophil 68 % (42-75); PLT Morphology Comment Appears Adequate; Platelet Count 134 thou/uL (130-400); RBC Distribution Width 14.7 % (11.5-14.5); Red Blood Cell (RBC) Count 2.07 mill/uL (4.70-6.10); White Blood Cell (WBC) Count 3.9 thou/uL (4.8-10.8)
[2017-11-18] MEDS: Multivitamin W/ Minerals 1 TAB PO SCH (08:45)
[2017-11-18] MEDS: Polyethylene Glycol 3350 17 GM Packet PO SCH (08:45)
[2017-11-18] MEDS: Ferrous Sulfate 325 MG TAB PO SCH (08:45)
[2017-11-18] MEDS: Cyanocobalamin (Vitamin B-12) 1,000 MCG TAB PO SCH (08:45)
[2017-11-18] MEDS: predniSONE 5 MG TAB PO SCH ×2 (08:45→17:59)
[2017-11-18] MEDS: Docusate 100 MG CAP PO SCH (08:45)
[2017-11-18] MEDS: sulfaSALAzine 500 MG TAB PO SCH ×2 (08:46→20:47)
[2017-11-18] MEDS: Folic Acid 1 MG TAB PO SCH (08:46)
[2017-11-18] MEDS: Aspirin 81 mg Enteric Coated Tablet PO SCH ×2 (08:46→09:01)
[2017-11-18] MEDS: Gabapentin 300 MG CAP PO SCH ×2 (08:46→20:47)
[2017-11-18] MEDS: Finasteride 5 MG TAB PO SCH (08:47)
[2017-11-18] MEDS: Amlodipine 10 MG TAB PO SCH (08:47)
[2017-11-18] MEDS: Alogliptin 6.25 MG TAB PO SCH (08:48)
[2017-11-18] MEDS: Losartan 25 MG TAB PO SCH (08:48)
[2017-11-18] MEDS: glipiZIDE 5 MG TAB PO SCH (08:48)
[2017-11-18] MEDS: Fluticasone Propionate Nasal Spray 16 gm Bottle NASAL SCH (08:49)
[2017-11-18] MEDS: Zinc Oxide 20% Oint 30 GM TUBE TOP SCH ×3 (09:02→20:47)
--- NOTE | 2017-11-18 10:54 | PDOC.PN ---
- Subjective Encounter Start Date: 11/18/17 Encounter Start Time: 10:40 Subjective: f/u for YOLETTE, UTI, anemia. Feels much better overall. No SOB. -: LE edema improved. - Objective Resuscitation Status: Resuscitation Status FULL:Full Resuscitation MAR Reviewed: Yes Vital Signs & Weight: Vital Signs (12 hours) Temp Pulse Pulse Resp BP BP Pulse Ox 11/18/17 08:45 97.8 F 84 16 153/67 H 96 11/18/17 08:43 86 153/67 H 11/18/17 03:55 97.6 F 82 164/74 H 92 L Pulse Ox 11/18/17 08:45 11/18/17 08:43 92 L 11/18/17 03:55 Weight Admit Weight 188 lb 7.924 oz Weight 174 lb 2.643 oz I&O: 11/17/17 11/18/17 11/19/17 06:59 06:59 06:59 Intake Total 1140 720 Output Total 2690 4225 Balance -2085 -1206 Result Diagrams: 11/18/17 05:25 11/18/17 05:25 Additional Labs: Accuchecks 11/18/17 11/17/17 11/17/17 05:25 20:29 17:17 POC Glucose 180 H 210 H 118 H 11/17/17 11:08 POC Glucose 135 H Microbiology 11/15/17 21:22 Stool Stool Occult Blood (BUDDY) - Final 11/14/17 19:25 Urine crane catheter Urine Culture - Preliminary Laboratory Tests 06/29/17 11/14/17 11/14/17 03:55 19:47 19:47 Hgb Potassium 5.5 H BUN Creatinine Troponin I 0.088 H B-Natriuretic Peptide 473.2 H Vitamin B12 Folate TSH 3rd Generation 11/14/17 11/14/17 11/15/17 19:47 23:19 01:52 Hgb Potassium BUN Creatinine Troponin I 0.087 H 0.086 H B-Natriuretic Peptide 188.4 H Vitamin B12 Folate TSH 3rd Generation 11/15/17 11/15/17 11/15/17 01:52 01:52 01:52 Hgb Potassium BUN 55 H Creatinine 2.26 H Troponin I B-Natriuretic Peptide Vitamin B12 195 L Folate 5.20 L [facility] 3rd Generation 2.7126 11/16/17 11/16/1718 05:08 05:08 05:45 Hgb 8.5 L Potassium BUN 52 H Creatinine 2.07 H 2.31 H Troponin I B-Natriuretic Peptide Vitamin B12 Folate TSH 3rd Generation 11/17/17 05:45 Hgb 7.0 L Potassium BUN Creatinine Troponin I B-Natriuretic Peptide Vitamin B12 Folate TSH 3rd Generation EKG Reviewed by me: Yes (Tele -SR) Phys Exam - Physical Examination Constitutional: NAD alert, responsive HEENT: PERRLA, sclera anicteric, oral pharynx no lesions Neck: no nodes, no JVD, supple, full ROM Respiratory: no wheezing, no rales, no rhonchi, clear to auscultation bilateral S1, S2 Cardiovascular: RRR, no significant murmur, no rub, gallop Gastrointestinal: soft, non-tender, no distention, positive bowel sounds decreased edema of LE's Musculoskeletal: pulses present moves UE's Psychiatric: normal affect, A&O x 3 Skin: normal turgor, cap refill <2 seconds Dx/Plan (1) YOLETTE (acute kidney injury) Code(s): N17.9 - ACUTE KIDNEY FAILURE, UNSPECIFIED Status: Acute Comment: Likely multifactorial, continue diuresis with close monitoring of renal function , repeat creatinine in am, avoid nephrotoxic meds and limit contrast exposure, consult Nephrology for any further recommendations (2) UTI (urinary tract infection) Status: Acute Qualifiers: Urinary tract infection type: catheter-associated UTI Indwelling urinary catheter type: unspecified Comment: Suspected given suprapubic catheter, d/c Rocephin, start Omnicef 300mg daily (3) Chronic anemia Code(s): D64.9 - ANEMIA, UNSPECIFIED Status: Chronic Comment: Serial monitoring, macrocytic component, start Vit B12 and Folate, serial H/H, consider GI evaluation if trending downward, repeat CBC and stool guaiac, transfuse 1u PRBC's today (4) DM type 2 (diabetes mellitus, type 2) Status: Chronic Qualifiers: 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: without fdc use Diabetes mellitus complication status: with unspecified complications Qualified Code(s) : E11.8 - Type 2 diabetes mellitus with unspecified complications Comment: ISS, Glipizide, serial accuchecks, ADA (5) HTN (hypertension) Code(s): I10 - ESSENTIAL (PRIMARY) HYPERTENSION Status: Chronic Qualifiers: Hypertension type: essential hypertension Qualified Code(s): I10 - Essential (primary) hypertension Comment: Improved, continue current BP regimen, serial monitoring (6) Hypothyroidism Code(s): E03.9 - HYPOTHYROIDISM, UNSPECIFIED Status: Chronic Qualifiers: Hypothyroidism type: unspecified Qualified Code(s): E03.9 - Hypothyroidism , unspecified Comment: Stable, continue Levothyroxine (7) CKD (chronic kidney disease) stage 3, GFR 30-59 ml/min Code(s): N18.3 - CHRONIC KIDNEY DISEASE, STAGE 3 (MODERATE) Status: Chronic Comment: Avoid nephrotoxic meds and limit contrast exposure - Plan continue antibiotics, PT/OT, 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
[2017-11-18] MEDS: Carvedilol 25 MG TAB PO SCH ×2 (11:00→20:47)
[2017-11-18] MEDS: Potassium Chloride 10 MEQ TAB PO SCH (20:47)
[2017-11-19] MEDS: Levothyroxine Sodium 88 MCG TAB PO SCH (05:11)
[2017-11-19] MEDS: Furosemide 40 MG/4 ML VIAL SLOW IVP SCH (05:11)
[2017-11-19 06:06] LABS: Albumin 2.5 g/dL (3.4-4.8); Anion Gap 12 mmol/L (10-20); BUN (Urea Nitrogen) 50 mg/dL (8.4-25.7); BUN/Creatinine Ratio 22.62; Calc. Creatinine Clearance 30 mL/min (70-130); Calcium 8.6 mg/dL (7.8-10.44); Carbon Dioxide 27 mmol/L (23-31); Chloride 98 mmol/L (98-107); Estimated GFR-MDRD 29; Glucose 240 mg/dL (83-110); Phosphorus 4.1 mg/dL (2.3-4.7); Potassium 4.3 mmol/L (3.5-5.1); Sodium 133 mmol/L (136-145)
[2017-11-19 06:35] LABS: Band 2 % (5-11); Hemoglobin 9.5 g/dL (14.0-18.0); Hypochromia SLIGHT = 6-15 cells (100X) (0-5/hpf); Lymphocytes 14 % (21-51); MDiff Complete? YES; Mean Corpuscular HGB CONC 34.5 g/dL (32.0-36.0); Mean Corpuscular Hemoglobin 34.4 pg (27.0-31.0); Mean Corpuscular Volume 99.7 fL (78.0-98.0); Monocytes 2 % (0-10); Neutrophil 82 % (42-75); PLT Morphology Comment Appears Adequate; Platelet Count 133 thou/uL (130-400); RBC Distribution Width 14.8 % (11.5-14.5); Red Blood Cell (RBC) Count 2.76 mill/uL (4.70-6.10); White Blood Cell (WBC) Count 4.4 thou/uL (4.8-10.8)
[2017-11-19] MEDS ORDERED: Cefdinir 300 MG CAP PO SCH (09:00)
[2017-11-19] MEDS: Cyanocobalamin (Vitamin B-12) 1,000 MCG TAB PO SCH (09:12)
[2017-11-19] MEDS: glipiZIDE 5 MG TAB PO SCH (09:12)
[2017-11-19] MEDS: Multivitamin W/ Minerals 1 TAB PO SCH (09:12)
[2017-11-19] MEDS: Amlodipine 10 MG TAB PO SCH (09:13)
[2017-11-19] MEDS: predniSONE 5 MG TAB PO SCH (09:13)
[2017-11-19] MEDS: Docusate 100 MG CAP PO SCH (09:13)
[2017-11-19] MEDS: Losartan 25 MG TAB PO SCH (09:13)
[2017-11-19] MEDS: Finasteride 5 MG TAB PO SCH (09:13)
[2017-11-19] MEDS: Carvedilol 25 MG TAB PO SCH (09:14)
[2017-11-19] MEDS: sulfaSALAzine 500 MG TAB PO SCH (09:14)
[2017-11-19] MEDS: Aspirin 81 mg Enteric Coated Tablet PO SCH (09:14)
[2017-11-19] MEDS: Alogliptin 6.25 MG TAB PO SCH (09:14)
[2017-11-19] MEDS: Folic Acid 1 MG TAB PO SCH (09:14)
[2017-11-19] MEDS: Ferrous Sulfate 325 MG TAB PO SCH (09:14)
[2017-11-19] MEDS: Polyethylene Glycol 3350 17 GM Packet PO SCH (09:15)
[2017-11-19] MEDS: Gabapentin 300 MG CAP PO SCH (09:15)
[2017-11-19] MEDS: Fluticasone Propionate Nasal Spray 16 gm Bottle NASAL SCH (09:23)
[2017-11-19 13:33] VITALS: BP 168/73; TEMP 96.4
--- NOTE | 2017-11-19 19:32 | DIS ---
DATE OF ADMISSION: 11/14/2017 DATE OF DISCHARGE: 11/19/2017 DISCHARGE DIAGNOSES: 1. Acute kidney injury, resolving. 2. Chronic kidney disease, stage 3. 3. Chronic macrocytic anemia, status post 1 unit of packed red blood cells. 4. Diabetes mellitus type 2, stable. 5. Hypertension, stable. 6. Hypothyroidism. 7. Nonambulatory status. 8. Systolic dysfunction with ejection fraction 40% to 45%. CONSULTATIONS: Dr. Ramirez with Nephrology Service. PERTINENT LAB AND X-RAY FINDINGS: Sodium ranged between 133-141, creatinine ranged between 2.07-2.44 . Estimated GFR ranged between 26-31. Phosphorus 4.1, albumin 2.5. Troponin I ranged between 0.086 -0.088. BNP 188, previously 473 on 06/2017. B12 level 195, folate 5.20. Total cholesterol 298, triglycerides 314, HDL 37, LDL 198. TSH 2.7. CBC showed a hemoglobin ranging between 7.0-9.5, MCV ranged between 100-104. Urine culture dated 11/14/2017 showed greater than 100,000 colonies of mixed skin and enteric horacio. Stool Hemoccult 1/2 positive on 11/15/2017. Portable chest x-ray dated showed no acute cardiopulmonary process. A 2D transthoracic echocardiogram dated 11/15/2017 showed ejection fraction of 40% to 45%. Moderate aortic regurgitation. HOSPITAL COURSE: The patient was initially admitted after presenting with progressive lower extremit y edema. The patient nonambulatory status with residing at [facility] with approximately 10-day history of worsening lower extremity edema. Patient with known chronic k idney disease, placed on IV Lasix. The patient sustained consistent diuresis throughout the hospital course with approximate 20 pound weight loss during the hospital stay. The patient's overall edema improved dramatically with diuretic therapy with excellent urine output noted. The patient was noted with chronic macrocytic anemia, receiving 1 unit of packed red blood cells during the hospital cours e. The patient was noted with one stool guaiac positive sample and one negative sample during the ho spital course. The patient did receive antibiotic therapy after concern for potential urinary tract infection given indwelling suprapubic catheter. Urine culture showed enteric and mixed skin horacio. However, the patient was transitioned to Omnicef 300 mg daily with recommendations to complete a 5-da y course of therapy on discharge. Overall, the patient remained clinically stable during the [facility] course. I have examined the patient at the time of discharge and discussed followup instructions. The patient verbalizes understanding and agreement and ready for discharge on 11/19/2017. DISCHARGE MEDICATIONS: 1. Norvasc 10 mg 1 tab p.o. daily. 2. Enteric coated aspirin 81 mg p.o. daily. 3. Carvedilol 25 mg p.o. b.i.d. 4. Docusate sodium 100 mg p.o. daily. 5. Vitamin D2 of 50,000 units p.o. daily. 6. Ferrous sulfate 325 mg p.o. daily. 7. Finasteride 5 mg p.o. daily. 8. Flonase 2 sprays in each naris daily. 9. Gabapentin 300 mg p.o. b.i.d. 10. Glipizide 5 mg p.o. daily. 11. Levothyroxine 88 mcg p.o. daily. 12. Losartan 25 mg p.o. daily. 13. Multivitamin 1 tab p.o. daily. 14. Zofran 4 mg p.o. q.6 hours p.r.n. nausea, vomiting. 15. Protonix 40 mg p.o. b.i.d. 16. MiraLax 17 grams p.o. daily. 17. Potassium chloride 10 mEq p.o. at bedtime. 18. Prednisone 7.5 mg p.o. b.i.d. 19. Sertraline 25 mg p.o. at bedtime. 20. Januvia 25 mg p.o. daily. 21. Sulfasalazine 1000 mg p.o. b.i.d. 22. Tramadol 50 mg p.o. every 6 hours p.r.n. 23. Omnicef 300 mg p.o. daily x5 days. 24. Vitamin B12 of 1000 mcg p.o. daily. 25. Folic acid 1 mg p.o. daily. 26. Lasix 40 mg p.o. at bedtime. FOLLOWUP: The patient to follow up with his primary doctor, Dr. Sawyer Molina at [facility]. CONDITION ON DISCHARGE: Fair. ACTIVITY: Ad radha. DIET: ADA and heart healthy. A 1.8 liter per 24 hour fluid restriction. CODE STATUS: FULL. SPECIAL INSTRUCTIONS: Recommend ongoing physical and occupational therapy. DISPOSITION: Discharged home to [facility], 11/19/2017. Total time preparing and coordinating discharge 40 minutes.
== END 2017-11-19 14:33 | DRG 683 ==
LOC: ERS 19:11 → 2NO 11-15 00:31
PROVIDERS: ADMIT Family Medicine; ATTEND Family Medicine
PROC: 30233N1 Transfusion of Nonautologous Red Blood Cells into Peripheral Vein, Percutaneous Approach (ICD-10-PCS; principal; 2017-11-18)
DX: N17.9 Acute kidney failure, unspecified (principal); T83.510A Infection and inflammatory reaction due to cystostomy catheter, initial encounter; E11.22 Type 2 diabetes mellitus with diabetic chronic kidney disease; I12.9 Hypertensive chronic kidney disease with stage 1 through stage 4 chronic kidney disease, or unspecified chronic kidney disease; N18.3 Chronic kidney disease, stage 3 (moderate); D63.1 Anemia in chronic kidney disease; D53.9 Nutritional anemia, unspecified; E03.9 Hypothyroidism, unspecified; R60.1 Generalized edema; K21.9 Gastro-esophageal reflux disease without esophagitis; M45.9 Ankylosing spondylitis of unspecified sites in spine; M19.90 Unspecified osteoarthritis, unspecified site; Z99.3 Dependence on wheelchair; Y84.6 Urinary catheterization as the cause of abnormal reaction of the patient, or of later complication, without mention of misadventure at the time of the procedure; Z87.891 Personal history of nicotine dependence; Z88.1 Allergy status to other antibiotic agents
CPT/HCPCS: 36415; 36416; 36430; 51702; 71045; 76770; 80048; 80053; 80061; 80069; 81003; 81015; 82274; 82553; 82570; 82607; 82746; 83880; 84443; 84484; 84540; 85007; 85025; 85027; 85610; 85730; 86850; 86900; 86901; 86922; 87086; 93005; 93306; 93970; 96374; A4216; G8978-GP-CM; G8979-GP-CL; G8996-GN-CJ; G8997-GN-CI; J0696; J1650; J1940; J7050; P9016